=== PATIENT | female | born 1930 | race Caucasian/White ===

== ENCOUNTER 2017-08-15 09:28 | Emergency (ER) | payer MEDICARE, OTHER ==
[2017-08-15 09:50] LABS: BILIRUBIN,URINE NEGATIVE (NEG); CLARITY,URINE CLEAR; COLOR,URINE YELLOW; GLUCOSE,URINE NEGATIVE (NEG); NITRITE,URINE POSITIVE (NEG); PH,URINE 6.5; PROTEIN,URINE NEGATIVE (NEG-TRACE); UROBILINOGEN,URINE 0.2 mg/dL (0.2 mg/dL)
[2017-08-15 09:58] LABS: BACTERIA,URINE MANY /HPF (0-FEW); RBC,URINE OCC /HPF (0-2)
[2017-08-15 09:59] LABS: SQUAMOUS EPITHELIAL CELL,UR OCC /LPF
[2017-08-15 10:09] LABS: BASO % 0 % (0-3); EOS % 0 % (0-3); HEMATOCRIT 35.8 % (36.0-47.0); HEMOGLOBIN 11.6 g/dL (12.0-15.5); LYMPH # 0.8 x10^3/uL (1.0-4.8); LYMPH % 6 % (24-48); MEAN CORPUSCULAR HEMOGLOBIN 27 pg (25-35); MEAN CORPUSCULAR HGB CONC 32 g/dL (31-37); MEAN CORPUSCULAR VOLUME 85 fL (79-100); MONO # 0.9 x10^3/uL (0.0-1.1); MONO % 7 % (0-9); NEUT # 11.7 x10^3uL (1.8-7.7); NEUT % 87 % (31-73); PLATELET COUNT 202 x10^3/uL (140-400); RED BLOOD COUNT 4.24 x10^6/uL (3.50-5.40); RED CELL DISTRIBUTION WIDTH 16.7 % (11.5-14.5); WHITE BLOOD COUNT 13.4 x10^3/uL (4.0-11.0)
[2017-08-15 10:11] LABS: ADD MAN DIFF? YES
[2017-08-15 10:17] LABS: ANION GAP 5 (6-14); BLOOD UREA NITROGEN 23 mg/dL (7-20); BUN/CREATININE RATIO 26 (6-20); CALCIUM 8.8 mg/dL (8.5-10.1); CARBON DIOXIDE 31 mmol/L (21-32); CHLORIDE 106 mmol/L (98-107); CREATININE 0.9 mg/dL (0.6-1.0); GFR 59.2; GLUCOSE 98 mg/dL (70-99); POTASSIUM 4.2 mmol/L (3.5-5.1); SODIUM 142 mmol/L (136-145)
[2017-08-15 10:23] LABS: ALBUMIN 2.8 g/dL (3.4-5.0); ALK PHOS 87 U/L (46-116); ALT (SGPT) 16 U/L (14-59); AST (SGOT) 18 U/L (15-37); TOTAL BILIRUBIN 0.4 mg/dL (0.2-1.0); TOTAL PROTEIN 5.7 g/dL (6.4-8.2)
[2017-08-15 10:54] LABS: % BANDS 5 % (0-9); % LYMPHS 8 % (24-48); % MONOS 4 % (0-10); % SEGS 83 % (35-66); PLT ESTIMATE ADEQUATE (ADEQUATE)
== END 2017-08-15 10:58 | disposition home or self-care (01) ==
LOC: ER 09:28
DX: N39.0 Urinary tract infection, site not specified (principal); R41.82 Altered mental status, unspecified; G89.29 Other chronic pain; I10 Essential (primary) hypertension; M06.9 Rheumatoid arthritis, unspecified; M81.0 Age-related osteoporosis without current pathological fracture; Z95.0 Presence of cardiac pacemaker; Z98.890 Other specified postprocedural states; Z91.041 Radiographic dye allergy status
CPT/HCPCS: 36415; 51701; 80053; 81001; 85007; 85025; 87086; 87186; 93005; 99285-25; P9612

== ENCOUNTER 2017-11-21 15:39 | Inpatient (IN) | payer MEDICARE, OTHER ==
[~2017-11-21] VITALS: Ht 152.4 cm; Wt 48.6 kg
[~2017-11-21 15:39] MED LIST: ACET325T46 PO; ALEN70TA5 PO; AMLO5TAB7 PO; ASPI-482 PO; CALC500T30 PO; CELE100C PO; CELE200C PO; CHOL100014 PO; CLON0.1T PO; DEXT237L PO; DICL100G18 TP; DOCU-109 PO; FENT1PAT15 TD; GUAI-108 PO; HYDR-2766 PO; HYDR-971 PO; HYDR200T5 PO; IRBE300T3 PO; LOSA100T7 PO; MECL25TA PO; MULT-245 PO; NITR100C62 PO; ONDA4TAB12 PO; POLY17PO3 PO; POLY2500 PO; SULF-16 PO; [UNRECOGNIZED DRUG - CODE] IV
--- NOTE | 2017-11-21 16:38 | RAD ---
Exam: AP portable chest History: Cough. Hypertension. Comparison: January 06, 2015. Findings: The heart and mediastinal structures are within normal limits for size. Lungs are without infiltrate. No pleural effusion or pneumothorax is identified. No overt failure is identified. Mild accentuation of interstitial markings is favored to be from fibrotic change. Aortic atherosclerosis is seen. Dual-lead pacemaker by left subclavian approach is seen. Aortic atherosclerosis is noted. Several vertebral bodies near the thoracal lumbar junction demonstrate cement. Impression: 1. No acute cardiopulmonary process. Electronically signed by: Phillip Asher MD (11/21/2017 4:35 PM) [place] [id number]
--- NOTE | 2017-11-21 16:47 | PHYS DOC ---
Past Medical History Past Medical History: Anxiety, Arthritis, Arrhythmia, Hypertension, Other Additional Past Medical Histor: CHRONIC PAIN, RHEUMATOID ARTHRITIS, Osteoporosis Past Surgical History: Pacemaker, Other Additional Past Surgical Histo: NECK, BACK SURGERY, EYE SURGERY Alcohol Use: None Drug Use: None Adult General Chief Complaint Chief Complaint: SHORTNESS OF BREATH HPI HPI 87-year-old female presents with a several day history of cough. She states that she feels a little short of breath with it. She denies any chest pain. She is denies hemoptysis. She states that it's just clear sputum there is no color to it. She denies any fever chills or sweats. She's had no associated nausea or vomiting no lower extremity swelling. She does not think anyone else around her is been sick. She does admit to being very anxious with this cough.[] Review of Systems Review of Systems Constitutional: Denies fever or chills [] Eyes: Denies change in visual acuity, redness, or eye pain [] HENT: Reports nasal congestion[] Respiratory: Per history of present illness[] Cardiovascular: No additional information not addressed in HPI [] GI: Denies abdominal pain, nausea, vomiting, bloody stools or diarrhea [] : Denies dysuria or hematuria [] Musculoskeletal: Denies back pain or joint pain [] Integument: Denies rash or skin lesions [] Neurologic: Denies headache, focal weakness or sensory changes [] Endocrine: Denies polyuria or polydipsia [] All other systems were reviewed and found to be within normal limits, except as documented in this note. Current Medications Current Medications Current Medications Medications (Trade) Dose Ordered Sig/Parker Start Time Stop Time Status Last Admin Dose Admin Acetaminophen (Tylenol) 650 mg PRN Q4HRS PRN 11/21/17 17:45 11/22/17 17:44 Albuterol/ Ipratropium (Duoneb) 3 ml RTQID 11/21/17 20:00 11/22/17 19:59 Furosemide (Lasix) 20 mg 1X ONCE 11/21/17 17:45 11/21/17 17:46 DC Ondansetron HCl (Zofran) 4 mg PRN Q8HRS PRN 11/21/17 17:45 11/22/17 17:44 Allergies Allergies Allergies Coded Allergies Type Severity Reaction Last Updated Verified I S O L A T I O N *CONTACT* Allergy Unknown 07/12/15 Yes No Known Medication Allergies Allergy Unknown 07/12/15 Yes Physical Exam Physical Exam Constitutional: Frail elderly female in no distress, no acute distress, non- toxic appearance. [] HENT: Normocephalic, atraumatic, bilateral external ears normal, oropharynx moist, no oral exudates, nose normal. [] Eyes: PERRLA, EOMI, conjunctiva normal, no discharge. [] Neck: Normal range of motion, no tenderness, supple, no stridor. [] Cardiovascular:Heart rate regular rhythm, no murmur [] Lungs & Thorax: Scattered rhonchi throughout both lungs no rales no wheezing[] Abdomen: Bowel sounds normal, soft, no tenderness, no masses, no pulsatile masses. [] Skin: Warm, dry, no erythema, no rash. [] Back: Kyphotic spine. [] Extremities: No tenderness, no cyanosis, no clubbing, ROM intact, no edema. [] Neurologic: Alert and oriented X 3, normal motor function, normal sensory function, no focal deficits noted. [] Psychologic: Anxious. [] Current Patient Data Vital Signs Vital Signs Date Time Temp Pulse Resp B/P (MAP) Pulse Ox O2 Delivery O2 Flow Rate FiO2 11/21/17 15:42 98.0 67 20 165/69 (101) 98 Room Air 98.0 Lab Values Laboratory Tests Test 11/21/17 16:57 White Blood Count 6.7 x10^3/uL (4.0-11.0) Red Blood Count 4.48 x10^6/uL (3.50-5.40) Hemoglobin 12.7 g/dL (12.0-15.5) Hematocrit 37.4 % (36.0-47.0) Mean Corpuscular Volume 84 fL (79-100) Mean Corpuscular Hemoglobin 28 pg (25-35) Mean Corpuscular Hemoglobin Concent 34 g/dL (31-37) Red Cell Distribution Width 17.7 % (11.5-14.5) H Platelet Count 201 x10^3/uL (140-400) Neutrophils (%) (Auto) 74 % (31-73) H Lymphocytes (%) (Auto) 13 % (24-48) L Monocytes (%) (Auto) 11 % (0-9) H Eosinophils (%) (Auto) 1 % (0-3) Basophils (%) (Auto) 0 % (0-3) Neutrophils # (Auto) 5.0 x10^3uL (1.8-7.7) Lymphocytes # (Auto) 0.9 x10^3/uL (1.0-4.8) L Monocytes # (Auto) 0.8 x10^3/uL (0.0-1.1) Eosinophils # (Auto) 0.1 x10^3/uL (0.0-0.7) Basophils # (Auto) 0.0 x10^3/uL (0.0-0.2) Sodium Level 140 mmol/L (136-145) Potassium Level 3.9 mmol/L (3.5-5.1) Chloride Level 105 mmol/L (98-107) Carbon Dioxide Level 30 mmol/L (21-32) Anion Gap 5 (6-14) L Blood Urea Nitrogen 27 mg/dL (7-20) H Creatinine 1.2 mg/dL (0.6-1.0) H Estimated GFR (Cockcroft-Gault) 42.5 BUN/Creatinine Ratio 23 (6-20) H Glucose Level 99 mg/dL (70-99) Lactic Acid Level 1.0 mmol/L (0.4-2.0) Calcium Level 8.9 mg/dL (8.5-10.1) Total Bilirubin 0.2 mg/dL (0.2-1.0) Aspartate Amino Transferase (AST) 23 U/L (15-37) Alanine Aminotransferase (ALT) 22 U/L (14-59) Alkaline Phosphatase 111 U/L (46-116) Troponin I Quantitative 0.054 ng/mL (0.000-0.055) LM-Jbk-S-Type Natriuretic Peptide 1490 pg/mL (0-449) H Total Protein 6.2 g/dL (6.4-8.2) L Albumin 3.2 g/dL (3.4-5.0) L Albumin/Globulin Ratio 1.1 (1.0-1.7) Laboratory Tests 11/21/17 16:57 Laboratory Tests 11/21/17 16:57 EKG EKG [] Interpretation Time: Atrial pacing rate of 70 no change from previous Radiology/Procedures Radiology/Procedures [] Impressions: PROCEDURE: CHEST AP ONLY Exam: AP portable chest History: Cough. Hypertension. Comparison: January 06, 2015. Findings: The heart and mediastinal structures are within normal limits for size. Lungs are without infiltrate. No pleural effusion or pneumothorax is identified. No overt failure is identified. Mild accentuation of interstitial markings is favored to be from fibrotic change. Aortic atherosclerosis is seen. Dual-lead pacemaker by left subclavian approach is seen. Aortic atherosclerosis is noted. Several vertebral bodies near the thoracal lumbar junction demonstrate cement. Impression: 1. No acute cardiopulmonary process. Course & Med Decision Making Course & Med Decision Making Pertinent Labs and Imaging studies reviewed. (See chart for details) [ED course: Evaluation reveals a frail 87-year-old female who is in mild respiratory distress secondary to cough and clear sputum production. After reviewing her workup it appears to me that her chest x-ray shows some volume overload and she has a slightly elevated BNP. I did give her some Lasix to begin diuresis in the department. Her oxygen saturation remains in the mid 90s on room air. I believe she'll do best being admitted to the hospital for further evaluation and tuneup. I spoke with Dr. Bazan who agrees with this plan.] Dragon Disclaimer Dragon Disclaimer This electronic medical record was generated, in whole or in part, using a voice recognition dictation system. Departure Departure Impression: Primary Impression: Shortness of breath Disposition: ADMITTED INPATIENT Admitting Physician: Erma Bazan Condition: GUARDED Referrals: CANDIS QUIJANO MD (PCP) ASIF GERMAN DO Nov 21, 2017 16:47
--- NOTE | 2017-11-21 16:49 | EKG ---
[facility] [address] [place] [address] Test Date: 2017-11-21 Test Time: 16:44:48 Pat Name: JESSEE LASSITER Department: Room: Gender: F [employer]: : 1930 Requested By: ASIF GERMAN Order Number: [id number] Reading MD: Nemesio Weber MD Measurements Intervals [place] Rate: 69 P: -4 TN: 178 QRS: -62 QRSD: 188 T: 93 QT: 466 QTc: 501 Interpretive Statements SR V-PACED Electronically Signed On 11-22-2017 13:51:15 CDT by Nemesio Weber MD
[2017-11-21 17:10] LABS: BASO % 0 % (0-3); EOS # 0.1 x10^3/uL (0.0-0.7); EOS % 1 % (0-3); HEMATOCRIT 37.4 % (36.0-47.0); HEMOGLOBIN 12.7 g/dL (12.0-15.5); LYMPH # 0.9 x10^3/uL (1.0-4.8); LYMPH % 13 % (24-48); MEAN CORPUSCULAR HEMOGLOBIN 28 pg (25-35); MEAN CORPUSCULAR HGB CONC 34 g/dL (31-37); MEAN CORPUSCULAR VOLUME 84 fL (79-100); MONO # 0.8 x10^3/uL (0.0-1.1); MONO % 11 % (0-9); NEUT % 74 % (31-73); PLATELET COUNT 201 x10^3/uL (140-400); RED BLOOD COUNT 4.48 x10^6/uL (3.50-5.40); RED CELL DISTRIBUTION WIDTH 17.7 % (11.5-14.5); WHITE BLOOD COUNT 6.7 x10^3/uL (4.0-11.0)
[2017-11-21 17:23] LABS: CALCIUM 8.9 mg/dL (8.5-10.1); CREATININE 1.2 mg/dL (0.6-1.0); GFR 42.5; POTASSIUM 3.9 mmol/L (3.5-5.1)
[2017-11-21 17:29] LABS: ALBUMIN 3.2 g/dL (3.4-5.0); ALBUMIN/GLOBULIN RATIO 1.1 (1.0-1.7); TOTAL BILIRUBIN 0.2 mg/dL (0.2-1.0); TOTAL PROTEIN 6.2 g/dL (6.4-8.2)
[2017-11-21] MEDS ORDERED: FUROSEMIDE 20 MG/2 ML VIAL. IVP ONE (17:45)
[2017-11-21] MEDS: ACETAMINOPHEN 325 MG TABLET. PO PRN (19:36)
[2017-11-21] MEDS: IPRATRPIUM/ALBUTEROL 0.5/2.5MG 3 ML NEBU. NEB SCH (20:00)
--- NOTE | 2017-11-21 22:54 | HP ---
ADMIT DATE: 11/21/2017 CHIEF COMPLAINT: Shortness of breath. HISTORY OF PRESENT ILLNESS: The patient is a pleasant, very frail 87-year-old female, who presented with shortness of breath and cough. While in the ER, we did some imaging including a chest x-ray, which is showing vascular congestion by my eye. Also, clinically, she seems to be aspirating. When I saw her, she seems to be choking and not able to swallow her food very well. I suspect she may have a combination of aspiration pneumonia and heart failure. We are going to admit the patient and consult Pulmonary and Cardiology. PAST MEDICAL HISTORY: Arthritis, anxiety, arrhythmias, hypertension, chronic pain, RA, osteoporosis, neck surgery, back surgery, eye surgery. ALLERGIES: None. FAMILY HISTORY: Hypertension. SOCIAL HISTORY: She does not drink, smoke or take drugs. MEDICATIONS: Reviewed, please refer to the MRAD. REVIEW OF SYSTEMS: REVIEW OF SYSTEMS: GENERAL: No history of weight change, weakness or fevers. SKIN: No bruising, hair changes or rashes. EYES: No blurred, double or loss of vision. NOSE AND THROAT: No history of nosebleeds, hoarseness or sore throat. HEART: No history of palpitations, chest pain or shortness of breath on exertion. LUNGS: She complains of shortness of breath and coughing with her food. GASTROINTESTINAL: Denies changes in appetite, nausea, vomiting, diarrhea or constipation. GENITOURINARY: No history of frequency, urgency, hesitancy or nocturia. NEUROLOGIC: Denies history of numbness, tingling, tremor or weakness. PSYCHIATRIC: No history of panic, anxiety or depression. ENDOCRINE: No history of heat or cold intolerance, polyuria or polydipsia. EXTREMITIES: Denies muscle weakness, joint pain, pain on walking or stiffness. PHYSICAL EXAMINATION: VITAL SIGNS: Temperature 98, pulse 80, respirations 18, blood pressure 147/65. GENERAL: She is alert, cooperative, very weak. Her daughters were present, they are good support for her. HEART: Distant S1, S2. LUNGS: Coarse. ABDOMEN: Soft. EXTREMITIES: No edema. SKIN: No rashes. ENDOCRINE: No thyromegaly. LYMPHATICS: No cervical nodes. HEMATOPOIETIC: No bruising. LABORATORY DATA: Hematology is normal. Electrolytes normal other than a BUN of 27. BNP 1490. Chest x-ray by my eye shows some vascular congestion. ASSESSMENT AND PLAN: Probable heart failure and probable aspiration pneumonia. The patient is being admitted. We will consult Pulmonary and Cardiology. TIFFANIE Whitehead. PT, OT. I asked the nurse to thicken her clear liquids for now, and we will consult speech therapy. Full code, p.r.n. Zofran, p.r.n. Tylenol, serial enzymes, cardiac monitoring. Blood culture, lactic acid level. PROGNOSIS: Guarded. GINGER SALAZAR DO DR: LISETH/antolin JOB#: [id number] / [id number]
[2017-11-21 23:03] VITALS: BP 123/50
[2017-11-22] MEDS ORDERED: SIMETHICONE 80 MG TAB.CHEW PO PRN ×2 (00:45→14:15)
[2017-11-22] MEDS ORDERED: ACETAMINOPHEN 325 MG TABLET. PO PRN (00:45)
[2017-11-22] MEDS ORDERED: DOCUSATE SODIUM 100 MG CAPSULE. PO PRN (00:45)
[2017-11-22] MEDS ORDERED: fentaNYL 25MCG/HR PATCH 1 PATCH PATCH.TD72 TD SCH (00:45)
[2017-11-22] MEDS ORDERED: DICLOFENAC SODIUM 1% TOPICAL GEL 100GM TUBE. TP PRN ×2 (00:45→14:00)
[2017-11-22] MEDS ORDERED: guaiFENesin DM 200MG/20MG 10 ML SYRUP PO PRN ×2 (00:45→14:30)
[2017-11-22] MEDS ORDERED: SENNOSIDES 8.6 MG TABLET PO PRN ×2 (00:45→14:30)
[2017-11-22] MEDS ORDERED: HYDROcodone/APAP 10/325 1 TAB TABLET PO PRN ×2 (00:45→14:30)
[2017-11-22] MEDS ORDERED: SENN1TAB29 PO (01:55)
[2017-11-22] MEDS ORDERED: ALEN70TA3 PO (01:55)
[2017-11-22] MEDS ORDERED: POLY17PO29 PO (01:55)
[2017-11-22] MEDS ORDERED: CALC600T4 PO (01:55)
[2017-11-22] MEDS ORDERED: DICL100G18 TP ×2 (01:55→13:00)
[2017-11-22] MEDS ORDERED: GABA-585 PO (01:55)
[2017-11-22] MEDS ORDERED: FENT1PAT90 TP (01:55)
[2017-11-22] MEDS ORDERED: ASPI-630 PO (01:55)
[2017-11-22] MEDS ORDERED: GUAI600T47 PO (01:55)
[2017-11-22] MEDS ORDERED: FERR325T14 PO (01:55)
[2017-11-22] MEDS ORDERED: TRAZ-85 PO (01:55)
[2017-11-22] MEDS ORDERED: GUAI237L83 PO (01:55)
[2017-11-22] MEDS ORDERED: FURO-69 PO ×2 (01:55)
[2017-11-22] MEDS ORDERED: SIME40DR40 PO ×2 (01:55)
[2017-11-22] MEDS ORDERED: SALI10002 MM (01:55)
[2017-11-22] MEDS ORDERED: CETI10TA16 PO (01:55)
[2017-11-22] MEDS ORDERED: TROL35.4 TP (01:55)
[2017-11-22] MEDS ORDERED: SULF1TAB23 PO ×2 (01:55→13:00)
[2017-11-22] MEDS ORDERED: ONDA4TAB7 PO (01:55)
[2017-11-22] MEDS ORDERED: ACET500T68 PO (01:55)
[2017-11-22] MEDS ORDERED: CRAN500C6 PO (01:55)
[2017-11-22] MEDS ORDERED: OMEP20TA63 PO (01:55)
[2017-11-22] MEDS ORDERED: HYDR-2766 PO (01:55)
[2017-11-22] MEDS ORDERED: XOPENEX0.63 MG/3 NEB (01:55)
[2017-11-22] MEDS ORDERED: HYDR200T71 PO (01:55)
[2017-11-22] MEDS ORDERED: SERT50TA PO (01:55)
[2017-11-22] MEDS ORDERED: AMLO10TA4 PO (01:55)
[2017-11-22] MEDS ORDERED: MULT1TAB52 PO (01:55)
[2017-11-22] MEDS ORDERED: CELE100C PO (01:55)
[2017-11-22] MEDS ORDERED: LOSA100T7 PO (01:55)
[2017-11-22 03:04] VITALS: BP 126/64
[2017-11-22 07:00] VITALS: BP 89/71
[2017-11-22] MEDS: IPRATRPIUM/ALBUTEROL 0.5/2.5MG 3 ML NEBU. NEB SCH ×3 (08:00→15:19)
[2017-11-22] MEDS ORDERED: FERROUS SULFATE 325 MG TABLET. PO SCH (08:00)
[2017-11-22] MEDS ORDERED: ASPIRIN ENTERIC COATED 81 MG TABLET.DR. PO SCH (08:00)
[2017-11-22] MEDS: ACETAMINOPHEN 325 MG TABLET. PO PRN (08:46)
[2017-11-22] MEDS ORDERED: SMZ/TMP 800/160MG TABLET. PO SCH (09:00)
[2017-11-22] MEDS ORDERED: SERTRALINE 50 MG TABLET. PO SCH (09:00)
[2017-11-22] MEDS ORDERED: amLODIPine BESYLATE 10 MG TABLET PO SCH (09:00)
[2017-11-22] MEDS ORDERED: POLYETHYLENE GLYCOL 3350 17 GM PACKET. PO SCH (09:00)
[2017-11-22] MEDS ORDERED: HYDROXYCHLOROQUINE 200 MG TABLET PO SCH (09:00)
[2017-11-22] MEDS ORDERED: CALCIUM CARBONATE 500 MG TABLET PO SCH (09:00)
[2017-11-22] MEDS ORDERED: LACTOBACILLUS RHAMNOSUS GG 1 CAPSULE. PO SCH (09:00)
[2017-11-22] MEDS ORDERED: LOSARTAN POTASSIUM 50 MG TABLET. PO SCH (09:00)
[2017-11-22] MEDS ORDERED: CETIRIZINE HCL 10 MG TABLET. PO SCH (09:00)
[2017-11-22] MEDS ORDERED: CELECOXIB 100 MG CAPSULE. PO SCH (09:00)
--- NOTE | 2017-11-22 09:49 | PDOC2 ---
CARDIAC CONSULT DATE OF CONSULT Date of Consult DATE: 11/22/17 TIME: 09:30 REASON FOR CONSULT Reason for Consult: Dyspnea REFERRING PHYSICIAN Referring Physician: Americo SOURCE Source: Chart review, Patient HISTORY OF PRESENT ILLNESS HISTORY OF PRESENT ILLNESS This is an 87 yo female admitted for complains of SOA. Presently she is pleasantly confused. Unknown what her baseline is like but she resides at [facility] living [place]. Currently she is not in any distress with no O2. No SOA or CP but does complain of occipital HUANG. She appears to have nasal congestion. She could not tell me why she is in the hospital and thinks that she is still in the [facility] home. Per chart review, she has been having coughing spells with no associated n/v. She does have a pacemaker and she has not followed up in our office for a while. No noted recent falls or syncope and unclear when her last interrogation was. PAST MEDICAL HISTORY Cardiovascular: CHF (diastolic), HTN, Other (SSS) Musculoskeletal: Osteoarthritis, Other (chronic gayle; vertebral compression fracture with kyphoplasty; left greater trochanter fracture) Rheumatologic: Rheumatoid arthritis Renal/: UTI Endocrine: Osteoporosis PAST SURGICAL HISTORY Past Surgical History: Pacemaker (medtronic), Other (cervical fusion) FAMILY HISTORY Family History noncontributory to age SOCIAL HISTORY Smoke: No ALCOHOL: none Lives: Long Term CURRENT MEDICATIONS CURRENT MEDICATIONS Current Medications Medications (Trade) Dose Ordered Sig/Parker Route PRN Reason Start Time Stop Time Status Last Admin Dose Admin Furosemide (Lasix) 20 mg 1X ONCE IVP 11/21/17 17:45 11/21/17 17:46 DC 11/21/17 18:03 Acetaminophen (Tylenol) 650 mg PRN Q4HRS PRN PO FEVER 11/21/17 17:45 11/22/17 17:44 11/22/17 08:46 Albuterol/ Ipratropium (Duoneb) 3 ml RTQID NEB 11/21/17 20:00 11/22/17 19:59 11/22/17 08:00 ALLERGIES ALLERGIES: Coded Allergies: I S O L A T I O N *CONTACT* (Verified Allergy, Unknown, 07/12/15) mrsa + No Known Medication Allergies (Verified Allergy, Unknown, 07/12/15) ROS Review of System unreliable, confuse PHYSICAL EXAM General: Alert, Cooperative, No acute distress HEENT: Atraumatic, Mucous membr. moist/pink Lungs: Other (fiant crackles bases) Heart: Regular rate (Paced), Other (3/6 systolic murmur to apex) Abdomen: Soft, No tenderness Extremities: No cyanosis, No edema Skin: No breakdown, No significant lesion Neuro: Normal speech, Sensation intact Psych/Mental Status: Mood NL, Other (confuse) MUSCULOSKELETAL: Osteoarthritic changes both hands, Other (cahectic) VITALS VITALS Vital Signs Date Time Temp Pulse Resp B/P (MAP) Pulse Ox O2 Delivery O2 Flow Rate FiO2 11/22/17 08:01 97 Room Air 11/22/17 07:00 98.6 73 18 89/71 (77) 98.6 LABS Lab: Laboratory Tests Test 11/21/17 16:57 11/21/17 20:35 11/21/17 23:30 White Blood Count 6.7 x10^3/uL (4.0-11.0) Red Blood Count 4.48 x10^6/uL (3.50-5.40) Hemoglobin 12.7 g/dL (12.0-15.5) Hematocrit 37.4 % (36.0-47.0) Mean Corpuscular Volume 84 fL (79-100) Mean Corpuscular Hemoglobin 28 pg (25-35) Mean Corpuscular Hemoglobin Concent 34 g/dL (31-37) Red Cell Distribution Width 17.7 % (11.5-14.5) Platelet Count 201 x10^3/uL (140-400) Neutrophils (%) (Auto) 74 % (31-73) Lymphocytes (%) (Auto) 13 % (24-48) Monocytes (%) (Auto) 11 % (0-9) Eosinophils (%) (Auto) 1 % (0-3) Basophils (%) (Auto) 0 % (0-3) Neutrophils # (Auto) 5.0 x10^3uL (1.8-7.7) Lymphocytes # (Auto) 0.9 x10^3/uL (1.0-4.8) Monocytes # (Auto) 0.8 x10^3/uL (0.0-1.1) Eosinophils # (Auto) 0.1 x10^3/uL (0.0-0.7) Basophils # (Auto) 0.0 x10^3/uL (0.0-0.2) Sodium Level 140 mmol/L (136-145) Potassium Level 3.9 mmol/L (3.5-5.1) Chloride Level 105 mmol/L (98-107) Carbon Dioxide Level 30 mmol/L (21-32) Anion Gap 5 (6-14) Blood Urea Nitrogen 27 mg/dL (7-20) Creatinine 1.2 mg/dL (0.6-1.0) Estimated GFR (Cockcroft-Gault) 42.5 BUN/Creatinine Ratio 23 (6-20) Glucose Level 99 mg/dL (70-99) Lactic Acid Level 1.0 mmol/L (0.4-2.0) Calcium Level 8.9 mg/dL (8.5-10.1) Total Bilirubin 0.2 mg/dL (0.2-1.0) Aspartate Amino Transf (AST/SGOT) 23 U/L (15-37) Alanine Aminotransferase (ALT/SGPT) 22 U/L (14-59) Alkaline Phosphatase 111 U/L (46-116) Troponin I Quantitative 0.054 ng/mL (0.000-0.055) 0.045 ng/mL (0.000-0.055) 0.048 ng/mL (0.000-0.055) IY-Cyu-J-Type Natriuretic Peptide 1490 pg/mL (0-449) Total Protein 6.2 g/dL (6.4-8.2) Albumin 3.2 g/dL (3.4-5.0) Albumin/Globulin Ratio 1.1 (1.0-1.7) ECHOCARDIOGRAM ECHOCARDIOGRAM <Conclusion> Normal LV systolic function. EF 60% Normal wall motion. Mild to moderate Aortic insufficiency, otherwise no evidence of significant valvular dysfunction. DATE: 01/07/15 1334 ASSESSMENT/PLAN ASSESSMENT/PLAN 1. Dyspnea/nasal congestion: possible aspiration. Troponin series nml, EKG paced with no acute changes. 2. PPM in situ with past SSS: medtronic. 3. HTN: controlled 4. Dementia 5. Likely FTT with deconditioning and chronic pain: has fentanyl patch 6. Chronic diastolic CHF: compensated. suspect poor PO hydration 7. Polypharmacy Recommendations 1. Speech eval. 2. Will interrogate device. TTE. May hold BP meds per BP trend. 3. Consider palliative consult for future goals of care. 4. UA, TSH, BMP DIXON TAI FIELD SPECIALIST Nov 22, 2017 09:49
[2017-11-22 11:00] VITALS: BP 139/48
--- NOTE | 2017-11-22 11:32 | PDOC ---
PROGRESS NOTES History of Present Illness History of Present Illness ASSESSMENT ASSESSMENT/PLAN 1. Dyspnea/ congestion: possible aspiration. DAughter thinks she is aspirating 2. PPM / SSS: 3. HTN: c 4. Dementia 5. chronic pain: 6. Chronic diastolic CHF: compensated. plan 1. Speech eval. POSS aspiration 2. interrogate PPM / TTE. 3. palliative consult 4. pulm consult 5. cardiology consult. Vitals Vitals Vital Signs Date Time Temp Pulse Resp B/P (MAP) Pulse Ox O2 Delivery O2 Flow Rate FiO2 11/22/17 11:00 97.7 80 18 139/48 (78) 92 Room Air 97.7 Physical Exam General: Alert, Oriented X3, Cooperative, No acute distress Heart: Regular rate (Paced), Normal S1, Other (3/6 systolic murmur to apex) Lungs: Crackles Abdomen: Soft, No tenderness Extremities: No clubbing, No cyanosis, No edema Skin: No breakdown, No significant lesion Labs LABS Laboratory Tests Test 11/21/17 16:57 11/21/17 20:35 11/21/17 23:30 White Blood Count 6.7 x10^3/uL (4.0-11.0) Red Blood Count 4.48 x10^6/uL (3.50-5.40) Hemoglobin 12.7 g/dL (12.0-15.5) Hematocrit 37.4 % (36.0-47.0) Mean Corpuscular Volume 84 fL (79-100) Mean Corpuscular Hemoglobin 28 pg (25-35) Mean Corpuscular Hemoglobin Concent 34 g/dL (31-37) Red Cell Distribution Width 17.7 % (11.5-14.5) Platelet Count 201 x10^3/uL (140-400) Neutrophils (%) (Auto) 74 % (31-73) Lymphocytes (%) (Auto) 13 % (24-48) Monocytes (%) (Auto) 11 % (0-9) Eosinophils (%) (Auto) 1 % (0-3) Basophils (%) (Auto) 0 % (0-3) Neutrophils # (Auto) 5.0 x10^3uL (1.8-7.7) Lymphocytes # (Auto) 0.9 x10^3/uL (1.0-4.8) Monocytes # (Auto) 0.8 x10^3/uL (0.0-1.1) Eosinophils # (Auto) 0.1 x10^3/uL (0.0-0.7) Basophils # (Auto) 0.0 x10^3/uL (0.0-0.2) Sodium Level 140 mmol/L (136-145) Potassium Level 3.9 mmol/L (3.5-5.1) Chloride Level 105 mmol/L (98-107) Carbon Dioxide Level 30 mmol/L (21-32) Anion Gap 5 (6-14) Blood Urea Nitrogen 27 mg/dL (7-20) Creatinine 1.2 mg/dL (0.6-1.0) Estimated GFR (Cockcroft-Gault) 42.5 BUN/Creatinine Ratio 23 (6-20) Glucose Level 99 mg/dL (70-99) Lactic Acid Level 1.0 mmol/L (0.4-2.0) Calcium Level 8.9 mg/dL (8.5-10.1) Total Bilirubin 0.2 mg/dL (0.2-1.0) Aspartate Amino Transf (AST/SGOT) 23 U/L (15-37) Alanine Aminotransferase (ALT/SGPT) 22 U/L (14-59) Alkaline Phosphatase 111 U/L (46-116) Troponin I Quantitative 0.054 ng/mL (0.000-0.055) 0.045 ng/mL (0.000-0.055) 0.048 ng/mL (0.000-0.055) NE-Hnd-D-Type Natriuretic Peptide 1490 pg/mL (0-449) Total Protein 6.2 g/dL (6.4-8.2) Albumin 3.2 g/dL (3.4-5.0) Albumin/Globulin Ratio 1.1 (1.0-1.7) Comment Review of Relevant I have reviewed the following items hilario (where applicable) has been applied. Labs Laboratory Tests Test 11/21/17 16:57 11/21/17 20:35 11/21/17 23:30 White Blood Count 6.7 x10^3/uL (4.0-11.0) Red Blood Count 4.48 x10^6/uL (3.50-5.40) Hemoglobin 12.7 g/dL (12.0-15.5) Hematocrit 37.4 % (36.0-47.0) Mean Corpuscular Volume 84 fL (79-100) Mean Corpuscular Hemoglobin 28 pg (25-35) Mean Corpuscular Hemoglobin Concent 34 g/dL (31-37) Red Cell Distribution Width 17.7 % (11.5-14.5) Platelet Count 201 x10^3/uL (140-400) Neutrophils (%) (Auto) 74 % (31-73) Lymphocytes (%) (Auto) 13 % (24-48) Monocytes (%) (Auto) 11 % (0-9) Eosinophils (%) (Auto) 1 % (0-3) Basophils (%) (Auto) 0 % (0-3) Neutrophils # (Auto) 5.0 x10^3uL (1.8-7.7) Lymphocytes # (Auto) 0.9 x10^3/uL (1.0-4.8) Monocytes # (Auto) 0.8 x10^3/uL (0.0-1.1) Eosinophils # (Auto) 0.1 x10^3/uL (0.0-0.7) Basophils # (Auto) 0.0 x10^3/uL (0.0-0.2) Sodium Level 140 mmol/L (136-145) Potassium Level 3.9 mmol/L (3.5-5.1) Chloride Level 105 mmol/L (98-107) Carbon Dioxide Level 30 mmol/L (21-32) Anion Gap 5 (6-14) Blood Urea Nitrogen 27 mg/dL (7-20) Creatinine 1.2 mg/dL (0.6-1.0) Estimated GFR (Cockcroft-Gault) 42.5 BUN/Creatinine Ratio 23 (6-20) Glucose Level 99 mg/dL (70-99) Lactic Acid Level 1.0 mmol/L (0.4-2.0) Calcium Level 8.9 mg/dL (8.5-10.1) Total Bilirubin 0.2 mg/dL (0.2-1.0) Aspartate Amino Transf (AST/SGOT) 23 U/L (15-37) Alanine Aminotransferase (ALT/SGPT) 22 U/L (14-59) Alkaline Phosphatase 111 U/L (46-116) Troponin I Quantitative 0.054 ng/mL (0.000-0.055) 0.045 ng/mL (0.000-0.055) 0.048 ng/mL (0.000-0.055) XN-Pgh-O-Type Natriuretic Peptide 1490 pg/mL (0-449) Total Protein 6.2 g/dL (6.4-8.2) Albumin 3.2 g/dL (3.4-5.0) Albumin/Globulin Ratio 1.1 (1.0-1.7) Laboratory Tests Test 11/21/17 16:57 11/21/17 20:35 11/21/17 23:30 White Blood Count 6.7 x10^3/uL (4.0-11.0) Red Blood Count 4.48 x10^6/uL (3.50-5.40) Hemoglobin 12.7 g/dL (12.0-15.5) Hematocrit 37.4 % (36.0-47.0) Mean Corpuscular Volume 84 fL (79-100) Mean Corpuscular Hemoglobin 28 pg (25-35) Mean Corpuscular Hemoglobin Concent 34 g/dL (31-37) Red Cell Distribution Width 17.7 % (11.5-14.5) Platelet Count 201 x10^3/uL (140-400) Neutrophils (%) (Auto) 74 % (31-73) Lymphocytes (%) (Auto) 13 % (24-48) Monocytes (%) (Auto) 11 % (0-9) Eosinophils (%) (Auto) 1 % (0-3) Basophils (%) (Auto) 0 % (0-3) Neutrophils # (Auto) 5.0 x10^3uL (1.8-7.7) Lymphocytes # (Auto) 0.9 x10^3/uL (1.0-4.8) Monocytes # (Auto) 0.8 x10^3/uL (0.0-1.1) Eosinophils # (Auto) 0.1 x10^3/uL (0.0-0.7) Basophils # (Auto) 0.0 x10^3/uL (0.0-0.2) Sodium Level 140 mmol/L (136-145) Potassium Level 3.9 mmol/L (3.5-5.1) Chloride Level 105 mmol/L (98-107) Carbon Dioxide Level 30 mmol/L (21-32) Anion Gap 5 (6-14) Blood Urea Nitrogen 27 mg/dL (7-20) Creatinine 1.2 mg/dL (0.6-1.0) Estimated GFR (Cockcroft-Gault) 42.5 BUN/Creatinine Ratio 23 (6-20) Glucose Level 99 mg/dL (70-99) Lactic Acid Level 1.0 mmol/L (0.4-2.0) Calcium Level 8.9 mg/dL (8.5-10.1) Total Bilirubin 0.2 mg/dL (0.2-1.0) Aspartate Amino Transf (AST/SGOT) 23 U/L (15-37) Alanine Aminotransferase (ALT/SGPT) 22 U/L (14-59) Alkaline Phosphatase 111 U/L (46-116) Troponin I Quantitative 0.054 ng/mL (0.000-0.055) 0.045 ng/mL (0.000-0.055) 0.048 ng/mL (0.000-0.055) EN-Fob-J-Type Natriuretic Peptide 1490 pg/mL (0-449) Total Protein 6.2 g/dL (6.4-8.2) Albumin 3.2 g/dL (3.4-5.0) Albumin/Globulin Ratio 1.1 (1.0-1.7) Medications Current Medications Furosemide (Lasix) 20 mg 1X ONCE IVP Last administered on 11/21/17at 18:03; Start 11/21/17 at 17:45; Stop 11/21/17 at 17:46; Status DC Ondansetron HCl (Zofran) 4 mg PRN Q8HRS PRN IV NAUSEA/VOMITING; Start 11/21/17 at 17:45; Stop 11/22/17 at 17:44 Acetaminophen (Tylenol) 650 mg PRN Q4HRS PRN PO FEVER Last administered on 11/22at 08:46; Start 11/21/17 at 17:45; Stop 11/22/17 at 17:44 Albuterol/ Ipratropium (Duoneb) 3 ml RTQID NEB Last administered on 11/22/17at 08:00; Start 11/21/17 at 20:00; Stop 11/22/17 at 19:59 Acetaminophen (Tylenol) 650 mg PRN Q6HRS PRN PO MILD PAIN; Start 11/22/17 at 00 :45; Status Cancel Calcium Carbonate/ Glycine (Oscal) 500 mg DAILY PO ; Start 11/22/17 at 09:00; Status Cancel Celecoxib (CeleBREX) 100 mg BID PO ; Start 11/22/17 at 09:00; Status Cancel Docusate Sodium (Colace) 100 mg PRN BID PRN PO CONSTIPATION 1ST CHOICE; Start 11/22/17 at 00:45; Status Cancel Fentanyl (Duragesic 25mcg/ Hr Patch) 1 patch Q72H TD ; Start 11/22/17 at 00:45; Status UNV Aspirin (Ecotrin) 81 mg DAILYWBKFT PO ; Start 11/22/17 at 08:00; Status Cancel Trimethoprim/ Sulfamethoxazole (Bactrim Ds) 0.5 tab BID PO ; Start 11/22/17 at 09:00; Stop 11/24/17 at 08:59; Status Cancel Cetirizine HCl (ZyrTEC) 10 mg DAILY PO ; Start 11/22/17 at 09:00; Status Cancel Ferrous Sulfate (Feosol) 325 mg DAILYWBKFT PO ; Start 11/22/17 at 08:00; Status Cancel Gabapentin (Neurontin) 100 mg HS PO ; Start 11/22/17 at 21:00; Status Cancel Acetaminophen/ Hydrocodone Bitart (Lortab 10/325) 0.5 tab PRN Q4HRS PRN PO SEVERE PAIN; Start 11/22/17 at 00:45; Status Cancel Furosemide (Lasix) 10 mg QMWF PO ; Start 11/23/17 at 16:00; Status Cancel Losartan Potassium (Cozaar) 100 mg DAILY PO ; Start 11/22/17 at 09:00; Status Cancel Polyethylene Glycol (miraLAX PACKET) 17 gm BID PO ; Start 11/22/17 at 09:00; Status Cancel Amlodipine Besylate (Norvasc) 10 mg DAILY PO ; Start 11/22/17 at 09:00; Status Cancel Hydroxychloroquine Sulfate (Plaquenil) 100 mg BID PO ; Start 11/22/17 at 09:00; Status Cancel Guaifenesin (Robitussin Dm) 5 ml PRN Q4HRS PRN PO COUGH 1ST CHOICE; Start 11/22 at 00:45; Status Cancel Sennosides (Senna) 8.6 mg PRN BID PRN PO CONSTIPATION 2ND CHOICE; Start at 00:45; Status Cancel Simethicone (Gas-X) 80 mg PRN Q4HRS PRN PO INDIGESTION; Start 11/22/17 at 00:45 ; Status Cancel Trazodone HCl (Desyrel) 50 mg QHS PO ; Start 11/22/17 at 21:00; Status Cancel Diclofenac Sodium (Voltaren) 1 angel PRN Q6HRS PRN TP TOPICAL PAIN; Start at 00:45; Status Cancel Sertraline HCl (Zoloft) 50 mg DAILY PO ; Start 11/22/17 at 09:00; Status Cancel Lactobacillus Rhamnosus (Culturelle) 1 cap BID PO ; Start 11/22/17 at 09:00; Status Cancel Active Scripts Active Reported Zoloft (Sertraline Hcl) 50 Mg Tablet 1 Tab PO DAILY Zofran (Ondansetron Hcl) 4 Mg Tablet 1 Tab PO Q6HRS Hydrocodone-Apap 10-325 (Hydrocodone Bit/Acetaminophen) 1 Each Tablet 1 Tab PO PRN Q4HRS PRN Gabapentin 100 Mg Capsule 100 Mg PO QHS Fosamax (Alendronate Sodium) 70 Mg Tablet 1 Tab PO WEEKLY Ferrous Sulfate 325 Mg Tablet 1 Tab PO DAILY DURAGESIC 25mcg/hr (Fentanyl) 1 Each Patch.td72 1 Patch TP Q3DAYS Prilosec Otc (Omeprazole Magnesium) 20 Mg Tablet.dr 40 Mg PO DAILY Cranberry (Cranberry Extract) 500 Mg Capsule 15,000 Mg PO DAILY Cetirizine Hcl 10 Mg Tablet 1 Tab PO DAILY Celebrex (Celecoxib) 100 Mg Capsule 1 Cap PO BID Calcium (Calcium Carbonate) 600 Mg Tablet 600 Mg PO BID Biotene (Saliva Substitution Combo No.9) 1,000 Ml Mouthwash 1,000 Ml MM Bactrim 400-80 Mg Tablet (Sulfamethoxazole/Trimethoprim) 1 Each Tablet 1 Tab PO BID Aspirin 81 Mg Tab.chew 1 Tab PO DAILY Aspercreme 10% Cream (Trolamine Salicylate/Aloe Vera) 35.4 Gm Cream..g. 35.4 Gm TP TID Acetaminophen 500 Mg Tablet 1 Tab PO QID PRN Xopenex (Levalbuterol Hcl) 0.63 Mg/3 Ml Vial.neb 1 Vial NEB QID Voltaren (Diclofenac Sodium) 100 Gm Gel..gram. 1 Gm TP QID Trazodone Hcl 50 Mg Tablet 1 Tab PO QHS Simethicone 40 Mg/0.6 Ml Drops.susp 40 Mg PO PRN Q4HRS PRN Simethicone 40 Mg/0.6 Ml Drops.susp 40 Mg PO Q4HRS W/A Senna Laxative Tablet (Sennosides/Docusate Sodium) 1 Each Tablet 1 Each PO DAILY PRN Robitussin Cough-Chest Dm Liq (Guaifenesin/Dextromethorphan) 237 Ml Liquid 20 Ml PO PRN Q4HRS PRN Plaquenil (Hydroxychloroquine Sulfate) 200 Mg Tablet 100 Mg PO BID Norvasc (Amlodipine Besylate) 10 Mg Tablet 10 Mg PO DAILY Multivitamins (Multivitamin) 1 Each Tablet 1 Tab PO DAILY Mucinex (Guaifenesin) 600 Mg Tablet.er 1 Tab PO BID Miralax (Polyethylene Glycol 3350) 17 Gm Powd.pack 1 Packet PO BID Losartan Potassium 100 Mg Tablet 100 Mg PO DAILY Lasix (Furosemide) 20 Mg Tablet 0.5 Tab PO QWE Lasix (Furosemide) 20 Mg Tablet 0.5 Tab PO QMONFR Vitamin D3 (Cholecalciferol (Vitamin D3)) 1,000 Unit Capsule 1,000 Unit PO DAILY Calcium (Calcium Carbonate) 500 Mg Tablet 500 Mg PO DAILY Multi Vitamin Daily (Multivitamin) 1 Each Tablet 1 Each PO DAILY Celebrex (Celecoxib) 100 Mg Capsule 1 Cap PO BID Colace (Docusate Sodium) 100 Mg Capsule 1 Cap PO PRN BID PRN Alendronate Sodium 70 Mg Tablet 1 Tab PO WEEKLY FENTANYL 25mcg/hr (Fentanyl) 1 Each Patch.td72 1 Patch TD Q72H Losartan Potassium 100 Mg Tablet 100 Mg PO DAILY Athenol (Acetaminophen) 325 Mg Tablet 650 Mg PO Q6HRS PRN Vitals/I & O Vital Sign - Last 24 Hours 9/12/18 9/12/18 9/12/18 9/12/18 15:42 16:01 16:41 17:21 Temp 98.0 98.0 Pulse 67 75 72 80 Resp 20 20 20 20 B/P (MAP) 165/69 (101) 165/69 (101) 153/67 (95) 139/65 (89) Pulse Ox 98 91 92 91 O2 Delivery Room Air Room Air Room Air Room Air 11/21/17 11/21/17 11/21/17 11/21/17 18:01 19:00 20:12 21:51 Pulse 74 72 Resp 22 18 B/P (MAP) 153/69 (97) 147/65 (92) Pulse Ox 93 93 94 O2 Delivery Room Air Room Air Room Air Room Air 11/21/17 11/22/17 11/22/17 11/22/17 23:03 03:04 07:00 08:00 Temp 98.1 97.2 98.6 98.1 97.2 98.6 Pulse 68 69 73 Resp 20 20 18 B/P (MAP) 123/50 (74) 126/64 (84) 89/71 (77) Pulse Ox 94 94 93 O2 Delivery Room Air Room Air Room Air Room Air 11/22/17 11/22/17 08:01 11:00 Temp 97.7 97.7 Pulse 80 Resp 18 B/P (MAP) 139/48 (78) Pulse Ox 97 92 O2 Delivery Room Air Room Air Nutrition Consultation Dietary Evaluation: Recommendations by RD: Increase Calorie Intake, Protein supplementation Comments: ensure enlive tid pt to benefit from an appetite stimulant Expected Outcomes/Goals: to meet > 75% est nutr needs Malnutrition Findings: Body Fat Depletion (Non Severe: Mild Depletion Weight Status: Underweight RICARDO MONREAL MD Nov 22, 2017 11:32
[2017-11-22] MEDS ORDERED: ESOM40CA PO (13:00)
[2017-11-22] MEDS ORDERED: FENT1PAT13 TP (13:00)
[2017-11-22] MEDS ORDERED: SENN8.8S5 PO (13:00)
[2017-11-22] MEDS ORDERED: PIP/TAZO PER PHARMACY MC PRN (13:30)
[2017-11-22 13:59] LABS: CALCIUM 9.4 mg/dL (8.5-10.1); GFR 52.4; MAGNESIUM 2.2 mg/dL (1.8-2.4); POTASSIUM 3.8 mmol/L (3.5-5.1)
[2017-11-22] MEDS ORDERED: ACETAMINOPHEN 500 MG TABLET PO PRN (14:00)
[2017-11-22] MEDS ORDERED: ALPRAZolam 0.25 MG TABLET PO PRN (14:00)
[2017-11-22] MEDS: PIPERACILLIN/TAZOBACTAM 2.25 GM in IV NORMAL SALINE 50ML 50 ML IV SCH ×2 (14:28→17:49)
[2017-11-22] MEDS ORDERED: ALBUTEROL SULFATE 2.5 MG/3 ML NEBU. NEB PRN (14:30)
[2017-11-22] MEDS ORDERED: ONDANSETRON ODT 4 MG TAB.RAPDIS. PO PRN (14:30)
[2017-11-22 15:00] VITALS: BP 164/61
[2017-11-22] MEDS: MULTIVITAMIN with MINERAL TABLET. PO SCH (15:00)
[2017-11-22] MEDS: FERROUS SULFATE 325 MG TABLET. PO SCH (15:00)
[2017-11-22] MEDS: ONDANSETRON PF 4 MG/2 ML VIAL. IV PRN (15:05)
[2017-11-22] MEDS: fentaNYL 25MCG/HR PATCH 1 PATCH PATCH.TD72 TD SCH (15:06)
[2017-11-22] MEDS: fentaNYL 12MCG/HR PATCH 1 PATCH PATCH.TD72 TD SCH (15:07)
--- NOTE | 2017-11-22 15:07 | CARD ---
MR#: [id number] Date of Study: 11/22/2017 Ordering Physician: DIXON TAI, Referring Physician: GINGER SALAZAR Tech: Patricia Power APPROVED REPORT EXAM: Two-dimensional and M-mode echocardiogram with Doppler and color Doppler. Other Information Quality : GoodHR: 75bpm INDICATION Dyspnea 2D DIMENSIONS RVDd2.3 (2.9-3.5cm)Left Atrium(2D)3.6 (1.6-4.0cm) IVSd0.7 (0.7-1.1cm)Aortic Root(2D)2.7 (2.0-3.7cm) LVDd4.8 (3.9-5.9cm)LVOT Diameter1.9 (1.8-2.4cm) PWd0.9 (0.7-1.1cm)LVDs2.8 (2.5-4.0cm) FS (%) 42.4 %SV80.0 ml Aortic Valve AoV Peak Gordon.229.9cm/sAoV VTI52.6cm AO Peak GR.21.1mmHgLVOT Peak Gordon.110.4cm/s AO Mean GR.13mmHgAVA (VMAX)1.31cm2 AI P 1/2 [id number] Mitral Valve MV E Dnacgnaz90.2cm/sMV DECEL [id number] MV A Muyqapbe245.0cm/sE/A Ratio0.4 Tricuspid Valve TR P. Tiqdenbn880zh/sRAP CGPPVOVS6mmBp TR Peak Gr.[id number] Pulmonary Vein S1 Aenvbumc099.0cm/sD2 Fimyyhex82.6cm/s PVa [id number] LEFT VENTRICLE The left ventricle is normal size. There is normal left ventricular wall thickness. Mild to moderate left ventricular systoilic dysfunction. The Ejection Fraction is estimated at 40%. Transmitral Dopple r flow pattern is Grade I-abnormal relaxation pattern. RIGHT VENTRICLE The right ventricle is normal size. There is normal right ventricular wall thickness. The right ventr icular systolic function is normal. ATRIA The left atrium size is normal. The right atrium size is normal. The interatrial septum is intact wit h no evidence for an atrial septal defect or patent foramen ovale as noted on 2-D or Doppler imaging. AORTIC VALVE The aortic valve is calcified but opens well. Doppler and Color Flow revealed mild aortic regurgitati on. There is mild valvular aortic stenosis. MITRAL VALVE The mitral valve is calcified but opens well. Doppler and Color-flow revealed mild mitral regurgitati on. TRICUSPID VALVE The tricuspid valve is normal in structure and function. Doppler and Color Flow revealed mild tricusp id regurgitation. There is no tricuspid valve stenosis. PULMONIC VALVE The pulmonic valve is not well visualized. GREAT VESSELS The aortic root is normal in size. The IVC is normal in size and collapses >50% with inspiration. PERICARDIAL EFFUSION There is no evidence of significant pericardial effusion. Critical Notification Critical Value: No <Conclusion> Mild to moderate left ventricular systoilic dysfunction. The Ejection Fraction is estimated at 40%. Transmitral Doppler flow pattern is Grade I-abnormal relaxation pattern. There is mild valvular aortic stenosis. Mild aortic regurgitation. Mild mitral regurgitation. Mild tricuspid regurgitation. There is no evidence of significant pericardial effusion. Signed by : Juan Boo, Electronically Approved : 11/22/2017 15:06:14
[2017-11-22] MEDS: CETIRIZINE HCL 10 MG TABLET. PO SCH (16:30)
[2017-11-22] MEDS: SERTRALINE 50 MG TABLET. PO SCH (16:30)
[2017-11-22] MEDS: ASPIRIN CHEWABLE 81 MG TABLET. PO SCH (16:31)
[2017-11-22] MEDS: amLODIPine BESYLATE 10 MG TABLET PO SCH (16:31)
--- NOTE | 2017-11-22 16:42 | PDOC ---
PULMONARY PROGRESS NOTES Vitals Vital Signs Date Time Temp Pulse Resp B/P (MAP) Pulse Ox O2 Delivery O2 Flow Rate FiO2 11/22/17 16:31 83 164/61 11/22/17 16:06 96 Room Air 11/22/17 15:00 97.6 17 97.6 Lungs: Crackles Labs Laboratory Tests Test 11/21/17 16:57 11/21/17 20:35 11/21/17 23:30 11/22/17 13:30 White Blood Count 6.7 x10^3/uL (4.0-11.0) Red Blood Count 4.48 x10^6/uL (3.50-5.40) Hemoglobin 12.7 g/dL (12.0-15.5) Hematocrit 37.4 % (36.0-47.0) Mean Corpuscular Volume 84 fL (79-100) Mean Corpuscular Hemoglobin 28 pg (25-35) Mean Corpuscular Hemoglobin Concent 34 g/dL (31-37) Red Cell Distribution Width 17.7 % (11.5-14.5) Platelet Count 201 x10^3/uL (140-400) Neutrophils (%) (Auto) 74 % (31-73) Lymphocytes (%) (Auto) 13 % (24-48) Monocytes (%) (Auto) 11 % (0-9) Eosinophils (%) (Auto) 1 % (0-3) Basophils (%) (Auto) 0 % (0-3) Neutrophils # (Auto) 5.0 x10^3uL (1.8-7.7) Lymphocytes # (Auto) 0.9 x10^3/uL (1.0-4.8) Monocytes # (Auto) 0.8 x10^3/uL (0.0-1.1) Eosinophils # (Auto) 0.1 x10^3/uL (0.0-0.7) Basophils # (Auto) 0.0 x10^3/uL (0.0-0.2) Sodium Level 140 mmol/L (136-145) 141 mmol/L (136-145) Potassium Level 3.9 mmol/L (3.5-5.1) 3.8 mmol/L (3.5-5.1) Chloride Level 105 mmol/L (98-107) 103 mmol/L (98-107) Carbon Dioxide Level 30 mmol/L (21-32) 29 mmol/L (21-32) Anion Gap 5 (6-14) 9 (6-14) Blood Urea Nitrogen 27 mg/dL (7-20) 18 mg/dL (7-20) Creatinine 1.2 mg/dL (0.6-1.0) 1.0 mg/dL (0.6-1.0) Estimated GFR (Cockcroft-Gault) 42.5 52.4 BUN/Creatinine Ratio 23 (6-20) Glucose Level 99 mg/dL (70-99) 124 mg/dL (70-99) Lactic Acid Level 1.0 mmol/L (0.4-2.0) Calcium Level 8.9 mg/dL (8.5-10.1) 9.4 mg/dL (8.5-10.1) Total Bilirubin 0.2 mg/dL (0.2-1.0) Aspartate Amino Transf (AST/SGOT) 23 U/L (15-37) Alanine Aminotransferase (ALT/SGPT) 22 U/L (14-59) Alkaline Phosphatase 111 U/L (46-116) Troponin I Quantitative 0.054 ng/mL (0.000-0.055) 0.045 ng/mL (0.000-0.055) 0.048 ng/mL (0.000-0.055) VX-Hka-K-Type Natriuretic Peptide 1490 pg/mL (0-449) Total Protein 6.2 g/dL (6.4-8.2) Albumin 3.2 g/dL (3.4-5.0) Albumin/Globulin Ratio 1.1 (1.0-1.7) Magnesium Level 2.2 mg/dL (1.8-2.4) Thyroid Stimulating Hormone (TSH) 1.696 uIU/mL (0.358-3.74) Laboratory Tests Test 11/21/17 16:57 11/21/17 20:35 11/21/17 23:30 11/22/17 13:30 White Blood Count 6.7 x10^3/uL (4.0-11.0) Red Blood Count 4.48 x10^6/uL (3.50-5.40) Hemoglobin 12.7 g/dL (12.0-15.5) Hematocrit 37.4 % (36.0-47.0) Mean Corpuscular Volume 84 fL (79-100) Mean Corpuscular Hemoglobin 28 pg (25-35) Mean Corpuscular Hemoglobin Concent 34 g/dL (31-37) Red Cell Distribution Width 17.7 % (11.5-14.5) Platelet Count 201 x10^3/uL (140-400) Neutrophils (%) (Auto) 74 % (31-73) Lymphocytes (%) (Auto) 13 % (24-48) Monocytes (%) (Auto) 11 % (0-9) Eosinophils (%) (Auto) 1 % (0-3) Basophils (%) (Auto) 0 % (0-3) Neutrophils # (Auto) 5.0 x10^3uL (1.8-7.7) Lymphocytes # (Auto) 0.9 x10^3/uL (1.0-4.8) Monocytes # (Auto) 0.8 x10^3/uL (0.0-1.1) Eosinophils # (Auto) 0.1 x10^3/uL (0.0-0.7) Basophils # (Auto) 0.0 x10^3/uL (0.0-0.2) Sodium Level 140 mmol/L (136-145) 141 mmol/L (136-145) Potassium Level 3.9 mmol/L (3.5-5.1) 3.8 mmol/L (3.5-5.1) Chloride Level 105 mmol/L (98-107) 103 mmol/L (98-107) Carbon Dioxide Level 30 mmol/L (21-32) 29 mmol/L (21-32) Anion Gap 5 (6-14) 9 (6-14) Blood Urea Nitrogen 27 mg/dL (7-20) 18 mg/dL (7-20) Creatinine 1.2 mg/dL (0.6-1.0) 1.0 mg/dL (0.6-1.0) Estimated GFR (Cockcroft-Gault) 42.5 52.4 BUN/Creatinine Ratio 23 (6-20) Glucose Level 99 mg/dL (70-99) 124 mg/dL (70-99) Lactic Acid Level 1.0 mmol/L (0.4-2.0) Calcium Level 8.9 mg/dL (8.5-10.1) 9.4 mg/dL (8.5-10.1) Total Bilirubin 0.2 mg/dL (0.2-1.0) Aspartate Amino Transf (AST/SGOT) 23 U/L (15-37) Alanine Aminotransferase (ALT/SGPT) 22 U/L (14-59) Alkaline Phosphatase 111 U/L (46-116) Troponin I Quantitative 0.054 ng/mL (0.000-0.055) 0.045 ng/mL (0.000-0.055) 0.048 ng/mL (0.000-0.055) NJ-Azk-L-Type Natriuretic Peptide 1490 pg/mL (0-449) Total Protein 6.2 g/dL (6.4-8.2) Albumin 3.2 g/dL (3.4-5.0) Albumin/Globulin Ratio 1.1 (1.0-1.7) Magnesium Level 2.2 mg/dL (1.8-2.4) Thyroid Stimulating Hormone (TSH) 1.696 uIU/mL (0.358-3.74) Medications Active Scripts Medications Dose Route/Sig Max Daily Dose Days Date Category FENTANYL 12mcg/hr (Fentanyl) 1 Each Patch.td72 1 Patch TP Q3DAYS 11/22/17 Reported Nexium Capsule (Esomeprazole Magnesium) 40 Mg Capsule.dr 40 Mg PO DAILYAC 11/22/17 Reported Bactrim 400-80 Mg Tablet (Sulfamethoxazole/Trimethoprim) 1 Each Tablet 1 Each PO BID 7 11/22/17 Reported Voltaren (Diclofenac Sodium) 100 Gm Gel..gram. 2 Gm TP PRN Q6HRS PRN 11/22/17 Reported Senna (Sennosides) 8.8 Mg/5 Ml Syrup 8.8 Mg PO PRN DAILY PRN 11/22/17 Reported Zoloft (Sertraline Hcl) 50 Mg Tablet 1 Tab PO DAILY 11/22/17 Reported Zofran (Ondansetron Hcl) 4 Mg Tablet 1 Tab PO PRN Q6HRS PRN 11/22/17 Reported Hydrocodone-Apap 10-325 (Hydrocodone Bit/Acetaminophen) 1 Each Tablet 0.5 Tab PO PRN Q4HRS PRN 11/22/17 Reported Gabapentin 100 Mg Capsule 100 Mg PO QHS 11/22/17 Reported Ferrous Sulfate 325 Mg Tablet 1 Tab PO DAILY 11/22/17 Reported DURAGESIC 25mcg/hr (Fentanyl) 1 Each Patch.td72 1 Patch TP Q3DAYS 11/22/17 Reported Cetirizine Hcl 10 Mg Tablet 1 Tab PO DAILY 11/22/17 Reported Celebrex (Celecoxib) 100 Mg Capsule 1 Cap PO BID 11/22/17 Reported Calcium (Calcium Carbonate) 600 Mg Tablet 600 Mg PO BID 11/22/17 Reported Biotene (Saliva Substitution Combo No.9) 1,000 Ml Mouthwash 15 Ml MM TIDAFTMEAL 11/22/17 Reported Aspirin 81 Mg Tab.chew 1 Tab PO DAILY 11/22/17 Reported Aspercreme 10% Cream (Trolamine Salicylate/Aloe Vera) 35.4 Gm Cream..g. 35.4 Gm TP TID 11/22/17 Reported Acetaminophen 500 Mg Tablet 1 Tab PO QID PRN 11/22/17 Reported Xopenex (Levalbuterol Hcl) 0.63 Mg/3 Ml Vial.neb 1 Vial NEB PRN QID PRN 11/22/17 Reported Trazodone Hcl 50 Mg Tablet 1 Tab PO QHS 11/22/17 Reported Simethicone 40 Mg/0.6 Ml Drops.susp 40 Mg PO PRN Q4HRS PRN 11/22/17 Reported Robitussin Cough-Chest Dm Liq (Guaifenesin/Dextromethorphan) 237 Ml Liquid 20 Ml PO PRN Q4HRS PRN 11/22/17 Reported Plaquenil (Hydroxychloroquine Sulfate) 200 Mg Tablet 100 Mg PO BID 11/22/17 Reported Norvasc (Amlodipine Besylate) 10 Mg Tablet 10 Mg PO DAILY 11/22/17 Reported Miralax (Polyethylene Glycol 3350) 17 Gm Powd.pack 1 Packet PO BID 11/22/17 Reported Lasix (Furosemide) 20 Mg Tablet 10 Mg PO QMWF 11/22/17 Reported Multi Vitamin Daily (Multivitamin) 1 Each Tablet 1 Each PO DAILY 01/07/15 Reported Alendronate Sodium 70 Mg Tablet 1 Tab PO WEEKLY 12/11/14 Reported Losartan Potassium 100 Mg Tablet 100 Mg PO DAILY 11/25/14 Reported Impression . NOTE DICTATED AGREE WITH POSSIBLE ASPIRATION WILL CONSULT SPEECH DELROY ONTIVEROS MD Nov 22, 2017 16:42
[2017-11-22] MEDS: SALIVA STIMULANT AGENT 44ML SPRAY BOTTLE. PO SCH (17:46)
[2017-11-22 19:00] VITALS: BP 155/65
--- NOTE | 2017-11-22 20:32 | CONS ---
DATE OF CONSULTATION: 11/22/2017 ATTENDING PHYSICIAN: Dr. Bazan. REASON FOR CONSULTATION: The patient seen in pulmonary consultation at the request of Dr. Bazan for shortness of air. HISTORY OF PRESENT ILLNESS: The patient is an 87-year-old that cannot provide me any useful information. She resides at [facility]. Apparently, she presented with shortness of air. At the time of my evaluation, she was in no distress. She was not wearing oxygen. She has been seen by Cardiology who evaluated her and felt that she may have possible aspiration. She does have a pacemaker implantation. PAST MEDICAL HISTORY: Otherwise remarkable for arrhythmias, status post pacemaker implantation, hypertension, chronic pain, rheumatoid arthritis, suspect dementia. SOCIAL HISTORY: No history of alcoholism. She resides at a group home. PAST SURGICAL HISTORY: Status post [employer] pacemaker. FAMILY HISTORY: Noncontributory secondary to age. ALLERGIES: No known drug allergies listed. MEDICATIONS: Current medication list was reviewed. PHYSICAL EXAMINATION: GENERAL: The patient was in no respiratory distress. VITAL SIGNS: Stable. O2 saturation was greater than 92%. HEENT: Eyes, the sclerae were nonicteric. NECK: Jugular venous distention was not elevated. No lymphadenopathy. CHEST: Full expansion. LUNGS: Adequate airway flow with no wheezes. CARDIOVASCULAR: Regular rate and rhythm with S1, S2, no S3. ABDOMEN: Soft, nontender, nondistended. EXTREMITIES: No clubbing, cyanosis, some mild contractures. NEUROLOGIC: The patient was asked to raise her legs off the bed. She was very weak. IMAGING: Chest x-ray reviewed, no acute cardiopulmonary process. LABORATORY DATA: Reviewed. White count was normal. Hemoglobin and hematocrit were noted. Electrolytes were noted. Troponin level was not elevated. IMPRESSION: 1. Progressive dyspnea. 2. Possible aspiration. 3. Suspect dementia. 4. Arrhythmia, status post pacemaker implantation. PLAN: 1. We will consult speech for evaluation. 2. Narrow down antibiotics. 3. I will review the above and make further recommendations. I do appreciate the privilege in sharing in her care. DELROY ONTIVEROS MD DR: WINTER/antolin JOB#: [id number] / [id number]
[2017-11-22] MEDS: POLYETHYLENE GLYCOL 3350 17 GM PACKET. PO SCH (21:00)
[2017-11-22] MEDS ORDERED: GABAPENTIN 100 MG CAPSULE. PO SCH (21:00)
[2017-11-22] MEDS ORDERED: traZODone 50 MG TABLET. PO SCH (21:00)
[2017-11-22] MEDS: GABAPENTIN 100 MG CAPSULE. PO SCH (21:33)
[2017-11-22] MEDS: traZODone 50 MG TABLET. PO SCH (21:33)
[2017-11-22] MEDS: HYDROXYCHLOROQUINE 200 MG TABLET PO SCH (21:34)
[2017-11-22] MEDS: CELECOXIB 100 MG CAPSULE. PO SCH (21:35)
[2017-11-22] MEDS: METHYL SALICYLATE/MENTHOL TOPICAL OINTMENT 29GM TUBE. TP SCH (21:35)
[2017-11-22 23:00] VITALS: BP 129/55
[2017-11-23] MEDS: PIPERACILLIN/TAZOBACTAM 2.25 GM in IV NORMAL SALINE 50ML 50 ML IV SCH ×4 (00:24→17:19)
[2017-11-23 03:00] VITALS: BP 139/53
[2017-11-23 06:10] LABS: ALBUMIN/GLOBULIN RATIO 1.3 (1.0-1.7); CALCIUM 8.4 mg/dL (8.5-10.1); CREATININE 0.8 mg/dL (0.6-1.0); GFR 67.8; POTASSIUM 4.4 mmol/L (3.5-5.1); TOTAL BILIRUBIN 0.4 mg/dL (0.2-1.0); TOTAL PROTEIN 5.3 g/dL (6.4-8.2)
[2017-11-23 07:00] VITALS: BP 145/56
[2017-11-23 07:58] LABS: BASO % 1 % (0-3); EOS % 1 % (0-3); HEMOGLOBIN 11.7 g/dL (12.0-15.5); LYMPH # 0.9 x10^3/uL (1.0-4.8); LYMPH % 12 % (24-48); MEAN CORPUSCULAR HEMOGLOBIN 28 pg (25-35); MEAN CORPUSCULAR HGB CONC 33 g/dL (31-37); MEAN CORPUSCULAR VOLUME 84 fL (79-100); MONO # 0.9 x10^3/uL (0.0-1.1); MONO % 12 % (0-9); NEUT # 5.8 x10^3uL (1.8-7.7); NEUT % 76 % (31-73); PLATELET COUNT 219 x10^3/uL (140-400); RED BLOOD COUNT 4.28 x10^6/uL (3.50-5.40); RED CELL DISTRIBUTION WIDTH 17.5 % (11.5-14.5); WHITE BLOOD COUNT 7.7 x10^3/uL (4.0-11.0)
--- NOTE | 2017-11-23 08:44 | PDOC ---
PULMONARY PROGRESS NOTES Subjective PT FEEL LESS SOA Vitals Vital Signs Date Time Temp Pulse Resp B/P (MAP) Pulse Ox O2 Delivery O2 Flow Rate FiO2 11/23/17 07:00 97.5 68 18 145/56 (85) 91 Room Air 97.5 ROS: No Nausea, No Chest Pain, No Abdominal Pain, No Increase Cough Lungs: Crackles Cardiovascular: S1, S2 Abdomen: Soft Neuro Exam: Alert Extremities: No Edema Skin: Warm Labs Laboratory Tests Test 11/21/17 16:57 11/21/17 20:35 11/21/17 23:30 11/22/17 09:30 White Blood Count 6.7 x10^3/uL (4.0-11.0) Red Blood Count 4.48 x10^6/uL (3.50-5.40) Hemoglobin 12.7 g/dL (12.0-15.5) Hematocrit 37.4 % (36.0-47.0) Mean Corpuscular Volume 84 fL (79-100) Mean Corpuscular Hemoglobin 28 pg (25-35) Mean Corpuscular Hemoglobin Concent 34 g/dL (31-37) Red Cell Distribution Width 17.7 % (11.5-14.5) Platelet Count 201 x10^3/uL (140-400) Neutrophils (%) (Auto) 74 % (31-73) Lymphocytes (%) (Auto) 13 % (24-48) Monocytes (%) (Auto) 11 % (0-9) Eosinophils (%) (Auto) 1 % (0-3) Basophils (%) (Auto) 0 % (0-3) Neutrophils # (Auto) 5.0 x10^3uL (1.8-7.7) Lymphocytes # (Auto) 0.9 x10^3/uL (1.0-4.8) Monocytes # (Auto) 0.8 x10^3/uL (0.0-1.1) Eosinophils # (Auto) 0.1 x10^3/uL (0.0-0.7) Basophils # (Auto) 0.0 x10^3/uL (0.0-0.2) Sodium Level 140 mmol/L (136-145) Potassium Level 3.9 mmol/L (3.5-5.1) Chloride Level 105 mmol/L (98-107) Carbon Dioxide Level 30 mmol/L (21-32) Anion Gap 5 (6-14) Blood Urea Nitrogen 27 mg/dL (7-20) Creatinine 1.2 mg/dL (0.6-1.0) Estimated GFR (Cockcroft-Gault) 42.5 BUN/Creatinine Ratio 23 (6-20) Glucose Level 99 mg/dL (70-99) Lactic Acid Level 1.0 mmol/L (0.4-2.0) Calcium Level 8.9 mg/dL (8.5-10.1) Total Bilirubin 0.2 mg/dL (0.2-1.0) Aspartate Amino Transf (AST/SGOT) 23 U/L (15-37) Alanine Aminotransferase (ALT/SGPT) 22 U/L (14-59) Alkaline Phosphatase 111 U/L (46-116) Troponin I Quantitative 0.054 ng/mL (0.000-0.055) 0.045 ng/mL (0.000-0.055) 0.048 ng/mL (0.000-0.055) EZ-Rxa-T-Type Natriuretic Peptide 1490 pg/mL (0-449) Total Protein 6.2 g/dL (6.4-8.2) Albumin 3.2 g/dL (3.4-5.0) Albumin/Globulin Ratio 1.1 (1.0-1.7) Nasal Screen MRSA (PCR) Negative (Negative) Test 11/22/17 11:40 11/22/17 13:30 11/23/17 04:20 Clostridium difficile Toxin (PCR) Negative (Negative) Sodium Level 141 mmol/L (136-145) 141 mmol/L (136-145) Potassium Level 3.8 mmol/L (3.5-5.1) 4.4 mmol/L (3.5-5.1) Chloride Level 103 mmol/L (98-107) 105 mmol/L (98-107) Carbon Dioxide Level 29 mmol/L (21-32) 26 mmol/L (21-32) Anion Gap 9 (6-14) 10 (6-14) Blood Urea Nitrogen 18 mg/dL (7-20) 16 mg/dL (7-20) Creatinine 1.0 mg/dL (0.6-1.0) 0.8 mg/dL (0.6-1.0) Estimated GFR (Cockcroft-Gault) 52.4 67.8 Glucose Level 124 mg/dL (70-99) 81 mg/dL (70-99) Calcium Level 9.4 mg/dL (8.5-10.1) 8.4 mg/dL (8.5-10.1) Magnesium Level 2.2 mg/dL (1.8-2.4) Thyroid Stimulating Hormone (TSH) 1.696 uIU/mL (0.358-3.74) White Blood Count 7.7 x10^3/uL (4.0-11.0) Red Blood Count 4.28 x10^6/uL (3.50-5.40) Hemoglobin 11.7 g/dL (12.0-15.5) Hematocrit 36.0 % (36.0-47.0) Mean Corpuscular Volume 84 fL (79-100) Mean Corpuscular Hemoglobin 28 pg (25-35) Mean Corpuscular Hemoglobin Concent 33 g/dL (31-37) Red Cell Distribution Width 17.5 % (11.5-14.5) Platelet Count 219 x10^3/uL (140-400) Neutrophils (%) (Auto) 76 % (31-73) Lymphocytes (%) (Auto) 12 % (24-48) Monocytes (%) (Auto) 12 % (0-9) Eosinophils (%) (Auto) 1 % (0-3) Basophils (%) (Auto) 1 % (0-3) Neutrophils # (Auto) 5.8 x10^3uL (1.8-7.7) Lymphocytes # (Auto) 0.9 x10^3/uL (1.0-4.8) Monocytes # (Auto) 0.9 x10^3/uL (0.0-1.1) Eosinophils # (Auto) 0.0 x10^3/uL (0.0-0.7) Basophils # (Auto) 0.0 x10^3/uL (0.0-0.2) BUN/Creatinine Ratio 20 (6-20) Total Bilirubin 0.4 mg/dL (0.2-1.0) Aspartate Amino Transf (AST/SGOT) 29 U/L (15-37) Alanine Aminotransferase (ALT/SGPT) 10 U/L (14-59) Alkaline Phosphatase 87 U/L (46-116) Total Protein 5.3 g/dL (6.4-8.2) Albumin 3.0 g/dL (3.4-5.0) Albumin/Globulin Ratio 1.3 (1.0-1.7) Laboratory Tests Test 11/22/17 09:30 11/22/17 11:40 11/22/17 13:30 11/23/17 04:20 Nasal Screen MRSA (PCR) Negative (Negative) Clostridium difficile Toxin (PCR) Negative (Negative) Sodium Level 141 mmol/L (136-145) 141 mmol/L (136-145) Potassium Level 3.8 mmol/L (3.5-5.1) 4.4 mmol/L (3.5-5.1) Chloride Level 103 mmol/L (98-107) 105 mmol/L (98-107) Carbon Dioxide Level 29 mmol/L (21-32) 26 mmol/L (21-32) Anion Gap 9 (6-14) 10 (6-14) Blood Urea Nitrogen 18 mg/dL (7-20) 16 mg/dL (7-20) Creatinine 1.0 mg/dL (0.6-1.0) 0.8 mg/dL (0.6-1.0) Estimated GFR (Cockcroft-Gault) 52.4 67.8 Glucose Level 124 mg/dL (70-99) 81 mg/dL (70-99) Calcium Level 9.4 mg/dL (8.5-10.1) 8.4 mg/dL (8.5-10.1) Magnesium Level 2.2 mg/dL (1.8-2.4) Thyroid Stimulating Hormone (TSH) 1.696 uIU/mL (0.358-3.74) White Blood Count 7.7 x10^3/uL (4.0-11.0) Red Blood Count 4.28 x10^6/uL (3.50-5.40) Hemoglobin 11.7 g/dL (12.0-15.5) Hematocrit 36.0 % (36.0-47.0) Mean Corpuscular Volume 84 fL (79-100) Mean Corpuscular Hemoglobin 28 pg (25-35) Mean Corpuscular Hemoglobin Concent 33 g/dL (31-37) Red Cell Distribution Width 17.5 % (11.5-14.5) Platelet Count 219 x10^3/uL (140-400) Neutrophils (%) (Auto) 76 % (31-73) Lymphocytes (%) (Auto) 12 % (24-48) Monocytes (%) (Auto) 12 % (0-9) Eosinophils (%) (Auto) 1 % (0-3) Basophils (%) (Auto) 1 % (0-3) Neutrophils # (Auto) 5.8 x10^3uL (1.8-7.7) Lymphocytes # (Auto) 0.9 x10^3/uL (1.0-4.8) Monocytes # (Auto) 0.9 x10^3/uL (0.0-1.1) Eosinophils # (Auto) 0.0 x10^3/uL (0.0-0.7) Basophils # (Auto) 0.0 x10^3/uL (0.0-0.2) BUN/Creatinine Ratio 20 (6-20) Total Bilirubin 0.4 mg/dL (0.2-1.0) Aspartate Amino Transf (AST/SGOT) 29 U/L (15-37) Alanine Aminotransferase (ALT/SGPT) 10 U/L (14-59) Alkaline Phosphatase 87 U/L (46-116) Total Protein 5.3 g/dL (6.4-8.2) Albumin 3.0 g/dL (3.4-5.0) Albumin/Globulin Ratio 1.3 (1.0-1.7) Medications Active Scripts Medications Dose Route/Sig Max Daily Dose Days Date Category FENTANYL 12mcg/hr (Fentanyl) 1 Each Patch.td72 1 Patch TP Q3DAYS 11/22/17 Reported Nexium Capsule (Esomeprazole Magnesium) 40 Mg Capsule.dr 40 Mg PO DAILYAC 11/22/17 Reported Bactrim 400-80 Mg Tablet (Sulfamethoxazole/Trimethoprim) 1 Each Tablet 1 Each PO BID 7 11/22/17 Reported Voltaren (Diclofenac Sodium) 100 Gm Gel..gram. 2 Gm TP PRN Q6HRS PRN 11/22/17 Reported Senna (Sennosides) 8.8 Mg/5 Ml Syrup 8.8 Mg PO PRN DAILY PRN 11/22/17 Reported Zoloft (Sertraline Hcl) 50 Mg Tablet 1 Tab PO DAILY 11/22/17 Reported Zofran (Ondansetron Hcl) 4 Mg Tablet 1 Tab PO PRN Q6HRS PRN 11/22/17 Reported Hydrocodone-Apap 10-325 (Hydrocodone Bit/Acetaminophen) 1 Each Tablet 0.5 Tab PO PRN Q4HRS PRN 11/22/17 Reported Gabapentin 100 Mg Capsule 100 Mg PO QHS 11/22/17 Reported Ferrous Sulfate 325 Mg Tablet 1 Tab PO DAILY 11/22/17 Reported DURAGESIC 25mcg/hr (Fentanyl) 1 Each Patch.td72 1 Patch TP Q3DAYS 11/22/17 Reported Cetirizine Hcl 10 Mg Tablet 1 Tab PO DAILY 11/22/17 Reported Celebrex (Celecoxib) 100 Mg Capsule 1 Cap PO BID 11/22/17 Reported Calcium (Calcium Carbonate) 600 Mg Tablet 600 Mg PO BID 11/22/17 Reported Biotene (Saliva Substitution Combo No.9) 1,000 Ml Mouthwash 15 Ml MM TIDAFTMEAL 11/22/17 Reported Aspirin 81 Mg Tab.chew 1 Tab PO DAILY 11/22/17 Reported Aspercreme 10% Cream (Trolamine Salicylate/Aloe Vera) 35.4 Gm Cream..g. 35.4 Gm TP TID 11/22/17 Reported Acetaminophen 500 Mg Tablet 1 Tab PO QID PRN 11/22/17 Reported Xopenex (Levalbuterol Hcl) 0.63 Mg/3 Ml Vial.neb 1 Vial NEB PRN QID PRN 11/22/17 Reported Trazodone Hcl 50 Mg Tablet 1 Tab PO QHS 11/22/17 Reported Simethicone 40 Mg/0.6 Ml Drops.susp 40 Mg PO PRN Q4HRS PRN 11/22/17 Reported Robitussin Cough-Chest Dm Liq (Guaifenesin/Dextromethorphan) 237 Ml Liquid 20 Ml PO PRN Q4HRS PRN 11/22/17 Reported Plaquenil (Hydroxychloroquine Sulfate) 200 Mg Tablet 100 Mg PO BID 11/22/17 Reported Norvasc (Amlodipine Besylate) 10 Mg Tablet 10 Mg PO DAILY 11/22/17 Reported Miralax (Polyethylene Glycol 3350) 17 Gm Powd.pack 1 Packet PO BID 11/22/17 Reported Lasix (Furosemide) 20 Mg Tablet 10 Mg PO QMWF 11/22/17 Reported Multi Vitamin Daily (Multivitamin) 1 Each Tablet 1 Each PO DAILY 01/07/15 Reported Alendronate Sodium 70 Mg Tablet 1 Tab PO WEEKLY 12/11/14 Reported Losartan Potassium 100 Mg Tablet 100 Mg PO DAILY 11/25/14 Reported Impression . IMPRESSION: 1. Progressive dyspnea. 2. Possible aspiration. 3. Suspect dementia. 4. Arrhythmia, status post pacemaker implantation. 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 This results in stasis of the ingested materials in the lower cervical esophagus with back flow and intermittent aspiration. Upper endoscopic evaluation is suggested. Plan . CONSULT GI SEE VIDEO SWALLOW REPORT ANTIBX 02 DIET PER SPEECH DELROY ONTIVEROS MD Nov 23, 2017 08:44
[2017-11-23] MEDS: POLYETHYLENE GLYCOL 3350 17 GM PACKET. PO SCH ×2 (09:00→21:00)
[2017-11-23] MEDS: SERTRALINE 50 MG TABLET. PO SCH (09:09)
[2017-11-23] MEDS: FUROSEMIDE 20 MG TABLET PO SCH (09:09)
[2017-11-23] MEDS: MULTIVITAMIN with MINERAL TABLET. PO SCH (09:09)
[2017-11-23] MEDS: ASPIRIN CHEWABLE 81 MG TABLET. PO SCH (09:09)
[2017-11-23] MEDS: HYDROXYCHLOROQUINE 200 MG TABLET PO SCH ×2 (09:09→21:00)
[2017-11-23] MEDS: LOSARTAN POTASSIUM 50 MG TABLET. PO SCH (09:10)
[2017-11-23] MEDS: CETIRIZINE HCL 10 MG TABLET. PO SCH (09:10)
[2017-11-23] MEDS: CELECOXIB 100 MG CAPSULE. PO SCH ×2 (09:10→21:00)
[2017-11-23] MEDS: FERROUS SULFATE 325 MG TABLET. PO SCH (09:10)
[2017-11-23] MEDS: METHYL SALICYLATE/MENTHOL TOPICAL OINTMENT 29GM TUBE. TP SCH ×3 (09:11→21:00)
[2017-11-23] MEDS: SALIVA STIMULANT AGENT 44ML SPRAY BOTTLE. PO SCH ×3 (10:06→17:19)
[2017-11-23 11:00] VITALS: BP 129/46
[2017-11-23] MEDS ORDERED: BARIUM SULFATE 40% (APPLE) 148 GM PWD. PO ONE (11:00)
--- NOTE | 2017-11-23 11:43 | RAD ---
Video dysphasia study, 11/23/2017: History: Dysphasia The swallowing mechanism was examined fluoroscopically in the lateral projection while the patient ingested a variety of food materials mixed with barium. 2.3 minutes of fluoroscopy time was utilized. One video fluoroscopic loop was recorded by a member of the speech Department. 2 additional static and dynamic fluoroscopic images were obtained. The patient demonstrated good oral control of the barium materials. There was initially good passage of the honey thickened material into the lower cervical esophagus. Backflow was then evident from the lower cervical esophagus back into the pharynx. With additional swallows this backflow continued resulting in filling of the piriform sinuses and kemar aspiration. There was also mild laryngeal penetration during swallowing of the thin liquids. Additional lateral images were obtained in the lower cervical and upper thoracic regions. These limited images demonstrated an esophageal stricture at approximately the cervicothoracic junction level with partial obstruction to flow of the contrast through that region. 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 This results in stasis of the ingested materials in the lower cervical esophagus with back flow and intermittent aspiration. Upper endoscopic evaluation is suggested.
--- NOTE | 2017-11-23 11:47 | PDOC ---
CARDIO Progress Notes Date and Time Date of Service 11/23/2017 Time of Evaluation 1140 Subjective Subjective: No Chest Pain, No shortness of breath, No Palpitations Vitals Vitals Vital Signs Date Time Temp Pulse Resp B/P (MAP) Pulse Ox O2 Delivery O2 Flow Rate FiO2 11/23/17 11:00 62 18 129/46 (73) 90 Room Air 11/23/17 07:00 97.5 97.5 Weight Weight [ ] Input and Output Intake and Output Intake and Output 11/23/17 07:00 Intake Total 150 ml Balance 150 ml Intake Oral 100 ml IV Total 50 ml # Voids 5 # Bowel Movements 5 Laboratory Labs Laboratory Tests Test 11/22/17 13:30 11/23/17 04:20 Sodium Level 141 mmol/L (136-145) 141 mmol/L (136-145) Potassium Level 3.8 mmol/L (3.5-5.1) 4.4 mmol/L (3.5-5.1) Chloride Level 103 mmol/L (98-107) 105 mmol/L (98-107) Carbon Dioxide Level 29 mmol/L (21-32) 26 mmol/L (21-32) Anion Gap 9 (6-14) 10 (6-14) Blood Urea Nitrogen 18 mg/dL (7-20) 16 mg/dL (7-20) Creatinine 1.0 mg/dL (0.6-1.0) 0.8 mg/dL (0.6-1.0) Estimated GFR (Cockcroft-Gault) 52.4 67.8 Glucose Level 124 mg/dL (70-99) 81 mg/dL (70-99) Calcium Level 9.4 mg/dL (8.5-10.1) 8.4 mg/dL (8.5-10.1) Magnesium Level 2.2 mg/dL (1.8-2.4) Thyroid Stimulating Hormone (TSH) 1.696 uIU/mL (0.358-3.74) White Blood Count 7.7 x10^3/uL (4.0-11.0) Red Blood Count 4.28 x10^6/uL (3.50-5.40) Hemoglobin 11.7 g/dL (12.0-15.5) Hematocrit 36.0 % (36.0-47.0) Mean Corpuscular Volume 84 fL (79-100) Mean Corpuscular Hemoglobin 28 pg (25-35) Mean Corpuscular Hemoglobin Concent 33 g/dL (31-37) Red Cell Distribution Width 17.5 % (11.5-14.5) Platelet Count 219 x10^3/uL (140-400) Neutrophils (%) (Auto) 76 % (31-73) Lymphocytes (%) (Auto) 12 % (24-48) Monocytes (%) (Auto) 12 % (0-9) Eosinophils (%) (Auto) 1 % (0-3) Basophils (%) (Auto) 1 % (0-3) Neutrophils # (Auto) 5.8 x10^3uL (1.8-7.7) Lymphocytes # (Auto) 0.9 x10^3/uL (1.0-4.8) Monocytes # (Auto) 0.9 x10^3/uL (0.0-1.1) Eosinophils # (Auto) 0.0 x10^3/uL (0.0-0.7) Basophils # (Auto) 0.0 x10^3/uL (0.0-0.2) BUN/Creatinine Ratio 20 (6-20) Total Bilirubin 0.4 mg/dL (0.2-1.0) Aspartate Amino Transf (AST/SGOT) 29 U/L (15-37) Alanine Aminotransferase (ALT/SGPT) 10 U/L (14-59) Alkaline Phosphatase 87 U/L (46-116) Total Protein 5.3 g/dL (6.4-8.2) Albumin 3.0 g/dL (3.4-5.0) Albumin/Globulin Ratio 1.3 (1.0-1.7) Microbiology Micro Microbiology 11/21/17 Blood Culture - Preliminary, Resulted NO GROWTH AFTER 1 DAY Physical Exam HEENT: Neck Supple W Full Motion Chest: Symmetric LUNGS: Other (basilar crackles) Heart: RRR (paced) Abdomen: Soft N/T Extremities: No Calf Tenderness Neurology: alert, follow commands Assessment Assessment 1. Dyspnea/nasal congestion: possible aspiration, video swallow pending 2. PPM in situ with past SSS: medtronic. Normal device function, paced rhythm 3. HTN: controlled 4. Dementia 5. Likely FTT with deconditioning and chronic pain 6. Chronic diastolic/systolic CHF: compensated. EF currently at 40% with mild valvular insufficiency 7. Polypharmacy Recommendations 1. Continue current cardiac regimen 2. Discussed cardiac treatment plan with daughter. Family does not want any invasive procedures and to continue with medical therapy. 3. Nothing further at this time. Follow up in office in 4 weeks. DIXON TAI APRN Nov 23, 2017 11:47
--- NOTE | 2017-11-23 12:01 | PDOC ---
PROGRESS NOTES Chief Complaint Chief Complaint sob History of Present Illness History of Present Illness ASSESSMENT ASSESSMENT/PLAN #esophageal stricture likely 1. Dyspnea/ congestion: possible aspiration. DAughter thinks she is aspirating 2. PPM / SSS: 3. HTN: c 4. Dementia 5. chronic pain: 6. Chronic diastolic CHF: compensated. plan - likely above, gi to see - med mgmt - see orders - ptot Vitals Vitals Vital Signs Date Time Temp Pulse Resp B/P (MAP) Pulse Ox O2 Delivery O2 Flow Rate FiO2 11/23/17 11:00 62 18 129/46 (73) 90 Room Air 11/23/17 07:00 97.5 97.5 Physical Exam Physical Exam she says she is doing well, no complaints, no nausea or vmoiting, no fever or chills General: Alert, Oriented X3, Cooperative, No acute distress Heart: Regular rate (Paced), Normal S1, Other (3/6 systolic murmur to apex) Lungs: Crackles Abdomen: Soft, No tenderness Extremities: No clubbing, No cyanosis, No edema Skin: No breakdown, No significant lesion Labs LABS Laboratory Tests Test 11/22/17 13:30 11/23/17 04:20 Sodium Level 141 mmol/L (136-145) 141 mmol/L (136-145) Potassium Level 3.8 mmol/L (3.5-5.1) 4.4 mmol/L (3.5-5.1) Chloride Level 103 mmol/L (98-107) 105 mmol/L (98-107) Carbon Dioxide Level 29 mmol/L (21-32) 26 mmol/L (21-32) Anion Gap 9 (6-14) 10 (6-14) Blood Urea Nitrogen 18 mg/dL (7-20) 16 mg/dL (7-20) Creatinine 1.0 mg/dL (0.6-1.0) 0.8 mg/dL (0.6-1.0) Estimated GFR (Cockcroft-Gault) 52.4 67.8 Glucose Level 124 mg/dL (70-99) 81 mg/dL (70-99) Calcium Level 9.4 mg/dL (8.5-10.1) 8.4 mg/dL (8.5-10.1) Magnesium Level 2.2 mg/dL (1.8-2.4) Thyroid Stimulating Hormone (TSH) 1.696 uIU/mL (0.358-3.74) White Blood Count 7.7 x10^3/uL (4.0-11.0) Red Blood Count 4.28 x10^6/uL (3.50-5.40) Hemoglobin 11.7 g/dL (12.0-15.5) Hematocrit 36.0 % (36.0-47.0) Mean Corpuscular Volume 84 fL (79-100) Mean Corpuscular Hemoglobin 28 pg (25-35) Mean Corpuscular Hemoglobin Concent 33 g/dL (31-37) Red Cell Distribution Width 17.5 % (11.5-14.5) Platelet Count 219 x10^3/uL (140-400) Neutrophils (%) (Auto) 76 % (31-73) Lymphocytes (%) (Auto) 12 % (24-48) Monocytes (%) (Auto) 12 % (0-9) Eosinophils (%) (Auto) 1 % (0-3) Basophils (%) (Auto) 1 % (0-3) Neutrophils # (Auto) 5.8 x10^3uL (1.8-7.7) Lymphocytes # (Auto) 0.9 x10^3/uL (1.0-4.8) Monocytes # (Auto) 0.9 x10^3/uL (0.0-1.1) Eosinophils # (Auto) 0.0 x10^3/uL (0.0-0.7) Basophils # (Auto) 0.0 x10^3/uL (0.0-0.2) BUN/Creatinine Ratio 20 (6-20) Total Bilirubin 0.4 mg/dL (0.2-1.0) Aspartate Amino Transf (AST/SGOT) 29 U/L (15-37) Alanine Aminotransferase (ALT/SGPT) 10 U/L (14-59) Alkaline Phosphatase 87 U/L (46-116) Total Protein 5.3 g/dL (6.4-8.2) Albumin 3.0 g/dL (3.4-5.0) Albumin/Globulin Ratio 1.3 (1.0-1.7) Comment Review of Relevant I have reviewed the following items hilario (where applicable) has been applied. Labs Laboratory Tests Test 11/21/17 16:57 11/21/17 20:35 11/21/17 23:30 11/22/17 09:30 White Blood Count 6.7 x10^3/uL (4.0-11.0) Red Blood Count 4.48 x10^6/uL (3.50-5.40) Hemoglobin 12.7 g/dL (12.0-15.5) Hematocrit 37.4 % (36.0-47.0) Mean Corpuscular Volume 84 fL (79-100) Mean Corpuscular Hemoglobin 28 pg (25-35) Mean Corpuscular Hemoglobin Concent 34 g/dL (31-37) Red Cell Distribution Width 17.7 % (11.5-14.5) Platelet Count 201 x10^3/uL (140-400) Neutrophils (%) (Auto) 74 % (31-73) Lymphocytes (%) (Auto) 13 % (24-48) Monocytes (%) (Auto) 11 % (0-9) Eosinophils (%) (Auto) 1 % (0-3) Basophils (%) (Auto) 0 % (0-3) Neutrophils # (Auto) 5.0 x10^3uL (1.8-7.7) Lymphocytes # (Auto) 0.9 x10^3/uL (1.0-4.8) Monocytes # (Auto) 0.8 x10^3/uL (0.0-1.1) Eosinophils # (Auto) 0.1 x10^3/uL (0.0-0.7) Basophils # (Auto) 0.0 x10^3/uL (0.0-0.2) Sodium Level 140 mmol/L (136-145) Potassium Level 3.9 mmol/L (3.5-5.1) Chloride Level 105 mmol/L (98-107) Carbon Dioxide Level 30 mmol/L (21-32) Anion Gap 5 (6-14) Blood Urea Nitrogen 27 mg/dL (7-20) Creatinine 1.2 mg/dL (0.6-1.0) Estimated GFR (Cockcroft-Gault) 42.5 BUN/Creatinine Ratio 23 (6-20) Glucose Level 99 mg/dL (70-99) Lactic Acid Level 1.0 mmol/L (0.4-2.0) Calcium Level 8.9 mg/dL (8.5-10.1) Total Bilirubin 0.2 mg/dL (0.2-1.0) Aspartate Amino Transf (AST/SGOT) 23 U/L (15-37) Alanine Aminotransferase (ALT/SGPT) 22 U/L (14-59) Alkaline Phosphatase 111 U/L (46-116) Troponin I Quantitative 0.054 ng/mL (0.000-0.055) 0.045 ng/mL (0.000-0.055) 0.048 ng/mL (0.000-0.055) AU-Bld-Q-Type Natriuretic Peptide 1490 pg/mL (0-449) Total Protein 6.2 g/dL (6.4-8.2) Albumin 3.2 g/dL (3.4-5.0) Albumin/Globulin Ratio 1.1 (1.0-1.7) Nasal Screen MRSA (PCR) Negative (Negative) Test 11/22/17 11:40 11/22/17 13:30 11/23/17 04:20 Clostridium difficile Toxin (PCR) Negative (Negative) Sodium Level 141 mmol/L (136-145) 141 mmol/L (136-145) Potassium Level 3.8 mmol/L (3.5-5.1) 4.4 mmol/L (3.5-5.1) Chloride Level 103 mmol/L (98-107) 105 mmol/L (98-107) Carbon Dioxide Level 29 mmol/L (21-32) 26 mmol/L (21-32) Anion Gap 9 (6-14) 10 (6-14) Blood Urea Nitrogen 18 mg/dL (7-20) 16 mg/dL (7-20) Creatinine 1.0 mg/dL (0.6-1.0) 0.8 mg/dL (0.6-1.0) Estimated GFR (Cockcroft-Gault) 52.4 67.8 Glucose Level 124 mg/dL (70-99) 81 mg/dL (70-99) Calcium Level 9.4 mg/dL (8.5-10.1) 8.4 mg/dL (8.5-10.1) Magnesium Level 2.2 mg/dL (1.8-2.4) Thyroid Stimulating Hormone (TSH) 1.696 uIU/mL (0.358-3.74) White Blood Count 7.7 x10^3/uL (4.0-11.0) Red Blood Count 4.28 x10^6/uL (3.50-5.40) Hemoglobin 11.7 g/dL (12.0-15.5) Hematocrit 36.0 % (36.0-47.0) Mean Corpuscular Volume 84 fL (79-100) Mean Corpuscular Hemoglobin 28 pg (25-35) Mean Corpuscular Hemoglobin Concent 33 g/dL (31-37) Red Cell Distribution Width 17.5 % (11.5-14.5) Platelet Count 219 x10^3/uL (140-400) Neutrophils (%) (Auto) 76 % (31-73) Lymphocytes (%) (Auto) 12 % (24-48) Monocytes (%) (Auto) 12 % (0-9) Eosinophils (%) (Auto) 1 % (0-3) Basophils (%) (Auto) 1 % (0-3) Neutrophils # (Auto) 5.8 x10^3uL (1.8-7.7) Lymphocytes # (Auto) 0.9 x10^3/uL (1.0-4.8) Monocytes # (Auto) 0.9 x10^3/uL (0.0-1.1) Eosinophils # (Auto) 0.0 x10^3/uL (0.0-0.7) Basophils # (Auto) 0.0 x10^3/uL (0.0-0.2) BUN/Creatinine Ratio 20 (6-20) Total Bilirubin 0.4 mg/dL (0.2-1.0) Aspartate Amino Transf (AST/SGOT) 29 U/L (15-37) Alanine Aminotransferase (ALT/SGPT) 10 U/L (14-59) Alkaline Phosphatase 87 U/L (46-116) Total Protein 5.3 g/dL (6.4-8.2) Albumin 3.0 g/dL (3.4-5.0) Albumin/Globulin Ratio 1.3 (1.0-1.7) Laboratory Tests Test 11/22/17 13:30 11/23/17 04:20 Sodium Level 141 mmol/L (136-145) 141 mmol/L (136-145) Potassium Level 3.8 mmol/L (3.5-5.1) 4.4 mmol/L (3.5-5.1) Chloride Level 103 mmol/L (98-107) 105 mmol/L (98-107) Carbon Dioxide Level 29 mmol/L (21-32) 26 mmol/L (21-32) Anion Gap 9 (6-14) 10 (6-14) Blood Urea Nitrogen 18 mg/dL (7-20) 16 mg/dL (7-20) Creatinine 1.0 mg/dL (0.6-1.0) 0.8 mg/dL (0.6-1.0) Estimated GFR (Cockcroft-Gault) 52.4 67.8 Glucose Level 124 mg/dL (70-99) 81 mg/dL (70-99) Calcium Level 9.4 mg/dL (8.5-10.1) 8.4 mg/dL (8.5-10.1) Magnesium Level 2.2 mg/dL (1.8-2.4) Thyroid Stimulating Hormone (TSH) 1.696 uIU/mL (0.358-3.74) White Blood Count 7.7 x10^3/uL (4.0-11.0) Red Blood Count 4.28 x10^6/uL (3.50-5.40) Hemoglobin 11.7 g/dL (12.0-15.5) Hematocrit 36.0 % (36.0-47.0) Mean Corpuscular Volume 84 fL (79-100) Mean Corpuscular Hemoglobin 28 pg (25-35) Mean Corpuscular Hemoglobin Concent 33 g/dL (31-37) Red Cell Distribution Width 17.5 % (11.5-14.5) Platelet Count 219 x10^3/uL (140-400) Neutrophils (%) (Auto) 76 % (31-73) Lymphocytes (%) (Auto) 12 % (24-48) Monocytes (%) (Auto) 12 % (0-9) Eosinophils (%) (Auto) 1 % (0-3) Basophils (%) (Auto) 1 % (0-3) Neutrophils # (Auto) 5.8 x10^3uL (1.8-7.7) Lymphocytes # (Auto) 0.9 x10^3/uL (1.0-4.8) Monocytes # (Auto) 0.9 x10^3/uL (0.0-1.1) Eosinophils # (Auto) 0.0 x10^3/uL (0.0-0.7) Basophils # (Auto) 0.0 x10^3/uL (0.0-0.2) BUN/Creatinine Ratio 20 (6-20) Total Bilirubin 0.4 mg/dL (0.2-1.0) Aspartate Amino Transf (AST/SGOT) 29 U/L (15-37) Alanine Aminotransferase (ALT/SGPT) 10 U/L (14-59) Alkaline Phosphatase 87 U/L (46-116) Total Protein 5.3 g/dL (6.4-8.2) Albumin 3.0 g/dL (3.4-5.0) Albumin/Globulin Ratio 1.3 (1.0-1.7) Microbiology 11/21/17 Blood Culture - Preliminary, Resulted NO GROWTH AFTER 1 DAY Medications Current Medications Furosemide (Lasix) 20 mg 1X ONCE IVP Last administered on 11/21/17at 18:03; Start 11/21/17 at 17:45; Stop 11/21/17 at 17:46; Status DC Ondansetron HCl (Zofran) 4 mg PRN Q8HRS PRN IV NAUSEA/VOMITING Last administered on 11/22/17at 15:05; Start 11/21/17 at 17:45; Stop 11/22/17 at 17:44 ; Status DC Acetaminophen (Tylenol) 650 mg PRN Q4HRS PRN PO FEVER Last administered on 11/22at 08:46; Start 11/21/17 at 17:45; Stop 11/22/17 at 14:18; Status DC Albuterol/ Ipratropium (Duoneb) 3 ml RTQID NEB Last administered on 11/22/17at 15:19; Start 11/21/17 at 20:00; Stop 11/22/17 at 19:59; Status DC Acetaminophen (Tylenol) 650 mg PRN Q6HRS PRN PO MILD PAIN; Start 11/22/17 at 00 :45; Status Cancel Calcium Carbonate/ Glycine (Oscal) 500 mg DAILY PO ; Start 11/22/17 at 09:00; Status Cancel Celecoxib (CeleBREX) 100 mg BID PO ; Start 11/22/17 at 09:00; Status Cancel Docusate Sodium (Colace) 100 mg PRN BID PRN PO CONSTIPATION 1ST CHOICE; Start 11/22/17 at 00:45; Status Cancel Fentanyl (Duragesic 25mcg/ Hr Patch) 1 patch Q72H TD ; Start 11/22/17 at 00:45; Status UNV Aspirin (Ecotrin) 81 mg DAILYWBKFT PO ; Start 11/22/17 at 08:00; Status Cancel Trimethoprim/ Sulfamethoxazole (Bactrim Ds) 0.5 tab BID PO ; Start 11/22/17 at 09:00; Stop 11/24/17 at 08:59; Status Cancel Cetirizine HCl (ZyrTEC) 10 mg DAILY PO ; Start 11/22/17 at 09:00; Status Cancel Ferrous Sulfate (Feosol) 325 mg DAILYWBKFT PO ; Start 11/22/17 at 08:00; Status Cancel Gabapentin (Neurontin) 100 mg HS PO ; Start 11/22/17 at 21:00; Status Cancel Acetaminophen/ Hydrocodone Bitart (Lortab 10/325) 0.5 tab PRN Q4HRS PRN PO SEVERE PAIN; Start 11/22/17 at 00:45; Status Cancel Furosemide (Lasix) 10 mg QMWF PO ; Start 11/23/17 at 16:00; Status Cancel Losartan Potassium (Cozaar) 100 mg DAILY PO ; Start 11/22/17 at 09:00; Status Cancel Polyethylene Glycol (miraLAX PACKET) 17 gm BID PO ; Start 11/22/17 at 09:00; Status Cancel Amlodipine Besylate (Norvasc) 10 mg DAILY PO ; Start 11/22/17 at 09:00; Status Cancel Hydroxychloroquine Sulfate (Plaquenil) 100 mg BID PO ; Start 11/22/17 at 09:00; Status Cancel Guaifenesin (Robitussin Dm) 5 ml PRN Q4HRS PRN PO COUGH 1ST CHOICE; Start 11/22 at 00:45; Status Cancel Sennosides (Senna) 8.6 mg PRN BID PRN PO CONSTIPATION 2ND CHOICE; Start at 00:45; Status Cancel Simethicone (Gas-X) 80 mg PRN Q4HRS PRN PO INDIGESTION; Start 11/22/17 at 00:45 ; Status Cancel Trazodone HCl (Desyrel) 50 mg QHS PO ; Start 11/22/17 at 21:00; Status Cancel Diclofenac Sodium (Voltaren) 1 angel PRN Q6HRS PRN TP TOPICAL PAIN; Start at 00:45; Status Cancel Sertraline HCl (Zoloft) 50 mg DAILY PO ; Start 11/22/17 at 09:00; Status Cancel Lactobacillus Rhamnosus (Culturelle) 1 cap BID PO ; Start 11/22/17 at 09:00; Status Cancel Piperacillin Sod/ Tazobactam Sod (Zosyn Per Pharmacy) 1 each PRN DAILY PRN MC SEE COMMENTS; Start 11/22/17 at 13:30 Piperacillin Sod/ Tazobactam Sod 2.25 gm/Sodium Chloride 50 ml @ 100 mls/hr Q6HRS IV Last administered on 11/23/17at 06:28; Start 11/22/17 at 13:30 Acetaminophen (Tylenol) 500 mg QID PRN PO MILD PAIN; Start 11/22/17 at 14:00 Amlodipine Besylate (Norvasc) 10 mg DAILY16 PO Last administered on 11/22/17at 16:31; Start 11/22/17 at 16:00 Aspirin (Children'S Aspirin) 81 mg DAILY PO Last administered on 11/23/17at 09: 09; Start 11/22/17 at 15:00 Celecoxib (CeleBREX) 100 mg BID PO Last administered on 11/23/17at 09:10; Start 11/22/17 at 21:00 Cetirizine HCl (ZyrTEC) 10 mg DAILY PO Last administered on 11/23/17at 09:10; Start 11/22/17 at 15:00 Diclofenac Sodium (Voltaren) 2 angel PRN Q6HRS PRN TP PAIN; Start 11/22/17 at 14: 00 Fentanyl (Duragesic 25mcg/ Hr Patch) 1 patch Q3DAYS TD Last administered on at 15:06; Start 11/22/17 at 15:00 Fentanyl (Duragesic 12mcg/ Hr Patch) 1 patch Q3DAYS TD Last administered on 15:07; Start 11/22/17 at 15:00 Ferrous Sulfate (Feosol) 325 mg DAILY PO Last administered on 11/23/17 09:10; Start 11/22/17 at 15:00 Furosemide (Lasix) 10 mg QMWF@0900 PO Last administered on 11/23/17 09:09; Start 11/23/17 at 09:00 Gabapentin (Neurontin) 100 mg QHS PO Last administered on 11/22/17 21:33; Start 11/22/17 at 21:00 Sertraline HCl (Zoloft) 50 mg DAILY PO Last administered on 11/23/17 09:09; Start 11/22/17 at 15:00 Simethicone (Gas-X) 40 mg PRN Q4HRS PRN PO GAS / BLOATING; Start 11/22/17 at 14 :15 Trazodone HCl (Desyrel) 50 mg QHS PO Last administered on 11/22/17at 21:33; Start 11/22/17 at 21:00 Guaifenesin (Robitussin Dm) 10 ml PRN Q4HRS PRN PO COUGH; Start 11/22/17 at 14: 30 Acetaminophen/ Hydrocodone Bitart (Lortab 10/325) 0.5 tab PRN Q4HRS PRN PO MOD TO SEVERE PAIN; Start 11/22/17 at 14:30 Hydroxychloroquine Sulfate (Plaquenil) 100 mg BID PO Last administered on at 09:09; Start 11/22/17 at 21:00 Albuterol Sulfate (Ventolin Neb Soln) 2.5 mg PRN Q6HRS PRN NEB SHORTNESS OF BREATH; Start 11/22/17 at 14:30 Losartan Potassium (Cozaar) 100 mg DAILY PO Last administered on 11/23/17 09: 10; Start 11/23/17 at 09:00 Multivitamins (Thera M Plus) 1 tab DAILY PO Last administered on 11/23/17 09: 09; Start 11/22/17 at 15:00 Ondansetron HCl (Zofran Odt) 4 mg PRN Q8HRS PRN PO NAUSEA/VOMITING; Start 11/22 at 14:30 Polyethylene Glycol (miraLAX PACKET) 17 gm BID PO ; Start 11/22/17 at 21:00 Saliva Substitute (Biotene Moisturizing Mouth) 2 spray TIDAFTMEAL PO Last administered on 11/23/17at 10:06; Start 11/22/17 at 18:00 Sennosides (Senna) 8.6 mg PRN DAILY PRN PO CONSTIPATION; Start 11/22/17 at 14: 30 Multi-Ingredient Ointment (Analgesic Valentine) 1 angel TID TP Last administered on at 09:11; Start 11/22/17 at 21:00 Alprazolam (Xanax) 0.25 mg PRN Q8HRS PRN PO ANXIETY / AGITATION; Start at 14:00 Barium Sulfate (Varibar Thin Liquid Apple) 148 gm 1X ONCE PO Last administered on 11/23/17at 11:23; Start 11/23/17 at 11:00; Stop 11/23/17 at 11:01 ; Status DC Active Scripts Active Reported FENTANYL 12mcg/hr (Fentanyl) 1 Each Patch.td72 1 Patch TP Q3DAYS Nexium Capsule (Esomeprazole Magnesium) 40 Mg Capsule.dr 40 Mg PO DAILYAC Bactrim 400-80 Mg Tablet (Sulfamethoxazole/Trimethoprim) 1 Each Tablet 1 Each PO BID 7 Days Voltaren (Diclofenac Sodium) 100 Gm Gel..gram. 2 Gm TP PRN Q6HRS PRN Senna (Sennosides) 8.8 Mg/5 Ml Syrup 8.8 Mg PO PRN DAILY PRN Zoloft (Sertraline Hcl) 50 Mg Tablet 1 Tab PO DAILY Zofran (Ondansetron Hcl) 4 Mg Tablet 1 Tab PO PRN Q6HRS PRN Hydrocodone-Apap 10-325 (Hydrocodone Bit/Acetaminophen) 1 Each Tablet 0.5 Tab PO PRN Q4HRS PRN Gabapentin 100 Mg Capsule 100 Mg PO QHS Ferrous Sulfate 325 Mg Tablet 1 Tab PO DAILY DURAGESIC 25mcg/hr (Fentanyl) 1 Each Patch.td72 1 Patch TP Q3DAYS Cetirizine Hcl 10 Mg Tablet 1 Tab PO DAILY Celebrex (Celecoxib) 100 Mg Capsule 1 Cap PO BID Calcium (Calcium Carbonate) 600 Mg Tablet 600 Mg PO BID Biotene (Saliva Substitution Combo No.9) 1,000 Ml Mouthwash 15 Ml MM TIDAFTMEAL Aspirin 81 Mg Tab.chew 1 Tab PO DAILY Aspercreme 10% Cream (Trolamine Salicylate/Aloe Vera) 35.4 Gm Cream..g. 35.4 Gm TP TID Acetaminophen 500 Mg Tablet 1 Tab PO QID PRN Xopenex (Levalbuterol Hcl) 0.63 Mg/3 Ml Vial.neb 1 Vial NEB PRN QID PRN Trazodone Hcl 50 Mg Tablet 1 Tab PO QHS Simethicone 40 Mg/0.6 Ml Drops.susp 40 Mg PO PRN Q4HRS PRN Robitussin Cough-Chest Dm Liq (Guaifenesin/Dextromethorphan) 237 Ml Liquid 20 Ml PO PRN Q4HRS PRN Plaquenil (Hydroxychloroquine Sulfate) 200 Mg Tablet 100 Mg PO BID Norvasc (Amlodipine Besylate) 10 Mg Tablet 10 Mg PO DAILY Miralax (Polyethylene Glycol 3350) 17 Gm Powd.pack 1 Packet PO BID Lasix (Furosemide) 20 Mg Tablet 10 Mg PO QMWF Multi Vitamin Daily (Multivitamin) 1 Each Tablet 1 Each PO DAILY Alendronate Sodium 70 Mg Tablet 1 Tab PO WEEKLY Losartan Potassium 100 Mg Tablet 100 Mg PO DAILY Vitals/I & O Vital Sign - Last 24 Hours 11/22/17 11/22/17 11/22/17 11/22/17 12:00 15:00 15:06 15:07 Temp 97.6 97.6 Pulse 83 Resp 17 B/P (MAP) 164/61 (95) Pulse Ox 95 92 O2 Delivery Room Air Room Air Room Air Room Air 11/22/17 11/22/17 11/22/17 11/22/17 16:06 16:31 19:00 19:06 Temp 97.6 97.6 Pulse 83 79 Resp 17 B/P (MAP) 164/61 155/65 (95) Pulse Ox 96 92 96 O2 Delivery Room Air Room Air Room Air 11/22/17 11/22/17 11/22/17 11/22/17 19:06 19:22 20:00 23:00 Temp 97.6 97.6 Pulse 71 Resp 17 B/P (MAP) 129/55 (79) Pulse Ox 96 93 O2 Delivery Room Air Room Air Room Air Room Air 911/23/17 11/23/17 11/23/17 03:00 07:00 08:00 09:10 Temp 97.6 97.5 97.6 97.5 Pulse 63 68 68 Resp 17 18 B/P (MAP) 139/53 (81) 145/56 (85) 145/56 Pulse Ox 95 91 O2 Delivery Room Air Room Air Room Air 11/23/17 11:00 Pulse 62 Resp 18 B/P (MAP) 129/46 (73) Pulse Ox 90 O2 Delivery Room Air Intake and Output 11/22/17 11/22/17 11/23/17 15:00 23:00 07:00 Intake Total 100 ml 50 ml Balance 100 ml 50 ml Nutrition Consultation Dietary Evaluation: Recommendations by RD: Increase Calorie Intake, Protein supplementation Comments: ensure enlive tid pt to benefit from an appetite stimulant Expected Outcomes/Goals: to meet > 75% est nutr needs Malnutrition Findings: Body Fat Depletion (Non Severe: Mild Depletion Weight Status: Underweight DINORA PUGA MD Nov 23, 2017 12:01
[2017-11-23 12:08] LABS: CHOLESTEROL/HDL RATIO 3.4
--- NOTE | 2017-11-23 14:08 | PDOC2 ---
GI CONSULT Reason For Consult: Stricture HPI: HPI: 87 y/o from living facility for progressive dyspnea and concerned for aspiration. DOUBLE CUTTER eval and videoswallow concerning for esophageal dysphagia as below. History from daughter Saray via phone. H/o pneumonia - also noticed choking and coughing w/ eating beginning ~3 months ago. First with crumbs, then meat, then liquids. No regurg/coughing up food. Does not occur every meal, though she is eating less in general. Mentions she feels embarrassed and goes back to her room during meals. H/o GERD treated intermittently for 8-10 years, currently w/ Nexium QD (per summary list - daughter says something like omeprazole). No n/v. Occasional migrating abd pain suspicious for gas. Constipation off and on but currently having liquid stools (C Diff neg). No bleeding. Taking ASA here, also Celebrex, Voltaren, and Plaquenil. No previous EGD. Might have had a colonoscopy >10 years ago. S/p cholecystectomy (stones). No pancreas or liver problems. PMH: PMH: CHF, HTN, SSS, OA, GERD, left greater trochanter fracture, UTI, RA and OA, kyphoplasty, pacemaker, cervical fusion, cholecystectomy FH: Family History: No pertinent hx Social History: Smoke: No ALCOHOL: none Drugs: None ROS: Difficult to obtain, denies pain. Vitals: Vitals: Vital Signs Date Time Temp Pulse Resp B/P (MAP) Pulse Ox O2 Delivery O2 Flow Rate FiO2 11/23/17 11:00 62 18 129/46 (73) 90 Room Air 11/23/17 07:00 97.5 97.5 Labs: Labs: Laboratory Tests Test 11/23/17 04:20 White Blood Count 7.7 x10^3/uL (4.0-11.0) Red Blood Count 4.28 x10^6/uL (3.50-5.40) Hemoglobin 11.7 g/dL (12.0-15.5) Hematocrit 36.0 % (36.0-47.0) Mean Corpuscular Volume 84 fL (79-100) Mean Corpuscular Hemoglobin 28 pg (25-35) Mean Corpuscular Hemoglobin Concent 33 g/dL (31-37) Red Cell Distribution Width 17.5 % (11.5-14.5) Platelet Count 219 x10^3/uL (140-400) Neutrophils (%) (Auto) 76 % (31-73) Lymphocytes (%) (Auto) 12 % (24-48) Monocytes (%) (Auto) 12 % (0-9) Eosinophils (%) (Auto) 1 % (0-3) Basophils (%) (Auto) 1 % (0-3) Neutrophils # (Auto) 5.8 x10^3uL (1.8-7.7) Lymphocytes # (Auto) 0.9 x10^3/uL (1.0-4.8) Monocytes # (Auto) 0.9 x10^3/uL (0.0-1.1) Eosinophils # (Auto) 0.0 x10^3/uL (0.0-0.7) Basophils # (Auto) 0.0 x10^3/uL (0.0-0.2) Sodium Level 141 mmol/L (136-145) Potassium Level 4.4 mmol/L (3.5-5.1) Chloride Level 105 mmol/L (98-107) Carbon Dioxide Level 26 mmol/L (21-32) Anion Gap 10 (6-14) Blood Urea Nitrogen 16 mg/dL (7-20) Creatinine 0.8 mg/dL (0.6-1.0) Estimated GFR (Cockcroft-Gault) 67.8 BUN/Creatinine Ratio 20 (6-20) Glucose Level 81 mg/dL (70-99) Calcium Level 8.4 mg/dL (8.5-10.1) Total Bilirubin 0.4 mg/dL (0.2-1.0) Aspartate Amino Transf (AST/SGOT) 29 U/L (15-37) Alanine Aminotransferase (ALT/SGPT) 10 U/L (14-59) Alkaline Phosphatase 87 U/L (46-116) Total Protein 5.3 g/dL (6.4-8.2) Albumin 3.0 g/dL (3.4-5.0) Albumin/Globulin Ratio 1.3 (1.0-1.7) Triglycerides Level 64 mg/dL (0-150) Cholesterol Level 157 mg/dL (0-200) LDL Cholesterol, Calculated 98 mg/dL (0-100) VLDL Cholesterol, Calculated 13 mg/dL (0-40) Non-HDL Cholesterol Calculated 111 mg/dL (0-129) HDL Cholesterol 46 mg/dL (40-60) Cholesterol/HDL Ratio 3.4 Allergies: Coded Allergies: I S O L A T I O N *CONTACT* (Verified Allergy, Unknown, 07/12/15) mrsa + No Known Medication Allergies (Verified Allergy, Unknown, 07/12/15) Medications: Current Medications Medications (Trade) Dose Ordered Sig/Parker Route PRN Reason Start Time Stop Time Status Last Admin Dose Admin Amlodipine Besylate (Norvasc) 10 mg DAILY16 PO 11/22/17 16:00 11/22/17 16:31 Aspirin (Children'S Aspirin) 81 mg DAILY PO 11/22/17 15:00 11/23/17 09:09 Celecoxib (CeleBREX) 100 mg BID PO 11/22/17 21:00 11/23/17 09:10 Cetirizine HCl (ZyrTEC) 10 mg DAILY PO 11/22/17 15:00 11/23/17 09:10 Fentanyl (Duragesic 25mcg/ Hr Patch) 1 patch Q3DAYS TD 11/22/17 15:00 11/22/17 15:06 Fentanyl (Duragesic 12mcg/ Hr Patch) 1 patch Q3DAYS TD 11/22/17 15:00 11/22/17 15:07 Ferrous Sulfate (Feosol) 325 mg DAILY PO 11/22/17 15:00 11/23/17 09:10 Furosemide (Lasix) 10 mg QMWF@0900 PO 11/23/17 09:00 11/23/17 09:09 Gabapentin (Neurontin) 100 mg QHS PO 11/22/17 21:00 11/22/17 21:33 Sertraline HCl (Zoloft) 50 mg DAILY PO 11/22/17 15:00 11/23/17 09:09 Trazodone HCl (Desyrel) 50 mg QHS PO 11/22/17 21:00 11/22/17 21:33 Hydroxychloroquine Sulfate (Plaquenil) 100 mg BID PO 11/22/17 21:00 11/23/17 09:09 Losartan Potassium (Cozaar) 100 mg DAILY PO 11/23/17 09:00 11/23/17 09:10 Multivitamins (Thera M Plus) 1 tab DAILY PO 11/22/17 15:00 11/23/17 09:09 Saliva Substitute (Biotene Moisturizing Mouth) 2 spray TIDAFTMEAL PO 11/22/17 18:00 11/23/17 13:13 Multi-Ingredient Ointment (Analgesic Drasco) 1 angel TID TP 11/22/17 21:00 11/23/17 13:14 Barium Sulfate (Varibar Thin Liquid Apple) 148 gm 1X ONCE PO 11/23/17 11:00 11/23/17 11:01 DC 11/23/17 11:23 Imaging: Imaging: Videoswallow 11/21/17 IMPRESSION: Esophageal 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 This results in stasis of the ingested materials in the lower cervical esophagus with back flow and intermittent aspiration. Upper endoscopic evaluation is suggested. Initial Videoswallow Study Report Pt provided honey thick via tsp, and thin via tsp and cup as well as <tsp puree. Limited trials of each d/t current findings. Much of bolus was retained in the upper cervical esophagus w/backflow to the pyriforms and spillover into the airway after swallow. Aspiration was SILENT as this time. NO safe consistency was identified. IMPRESSIONS: Esophageal dysphagia w/SILENT aspiration on esophageal backflow which fills the pyriforms and spills into the airway p.swallow. High risk of aspiration on ALL po d/t etiology of dysphagia is esophageal and swallow function is not impacted by changes in consistency. See radiologist report for further details. All images sent to iPACS. RECOMMENDATIONS: NPO meds and nutrition; NOT safe for any po intake at this time , strict NPO indicated. Provide oral care w/oral care kit and Biotene products. Refer to GI for further w/u. CXR 11/21/17 Impression: 1. No acute cardiopulmonary process. PE: GEN: NAD HEENT: Atraumatic, PERRL LUNGS: poor effort but clear anteriorly HEART: RRR ABD: NABS, S/ND/NT EXTREMITY: No edema SKIN: No rashes, no jaundice NEURO/PSYCH: awake and alert, smiling and cooperative, pleasantly confused - I did watch her spit some saliva into a tissue A/P: A/P: Dyspnea Abnormal videoswallow/DOUBLE CUTTER eval - esophageal dysphagia w/ aspiration, imaging suggests stricture, is now NPO GERD - on PPI CRC screen - >10 years S/p cholecystectomy Dementia -- Reviewed w/ Dr. Arrington - possible EGD Sunday pending clinical course over the weekend. Reviewed this possibility w/ Saray and she is agreeable. Will give IV PPI. MAAME OLMEDO Nov 23, 2017 14:08
[2017-11-23 15:00] VITALS: BP 161/57
[2017-11-23] MEDS ORDERED: diphenhydrAMINE 50 MG/ML VIAL IVP PRN (15:15)
[2017-11-23] MEDS: amLODIPine BESYLATE 10 MG TABLET PO SCH (15:27)
[2017-11-23] MEDS: IV NORMAL SALINE 1000ML BAG 1,000 ML IV SCH (15:37)
[2017-11-23] MEDS: ONDANSETRON PF 4 MG/2 ML VIAL. IV PRN (15:45)
[2017-11-23] MEDS ORDERED: FUROSEMIDE 20 MG TABLET PO SCH (16:00)
[2017-11-23] MEDS ORDERED: cloNIDine TTS-1 1 PATCH PATCH.TDWK TD SCH (16:00)
[2017-11-23] MEDS ORDERED: ENALAPRILAT 1.25 MG/ML VIAL. IVP PRN (16:30)
[2017-11-23 19:00] VITALS: BP 143/78
[2017-11-23] MEDS: traZODone 50 MG TABLET. PO SCH (21:00)
[2017-11-23] MEDS: GABAPENTIN 100 MG CAPSULE. PO SCH (21:00)
[2017-11-23 22:49] VITALS: BP 155/56
[2017-11-24 03:00] VITALS: BP 149/68
[2017-11-24] MEDS: IV NORMAL SALINE 1000ML BAG 1,000 ML IV SCH ×2 (03:15→11:15)
[2017-11-24] MEDS: PIPERACILLIN/TAZOBACTAM 2.25 GM in IV NORMAL SALINE 50ML 50 ML IV SCH ×6 (06:00→23:48)
[2017-11-24 07:00] VITALS: BP 154/56
--- NOTE | 2017-11-24 07:44 | PDOC ---
PULMONARY PROGRESS NOTES Subjective sob is better, has cough, no pain Vitals Vital Signs Date Time Temp Pulse Resp B/P (MAP) Pulse Ox O2 Delivery O2 Flow Rate FiO2 11/24/17 03:00 98.1 69 18 149/68 (95) 95 Room Air 98.1 ROS: No Nausea, No Chest Pain, No Abdominal Pain, No Increase Cough HEENT: Other (nc at perrl nose throat clear) Lungs: Crackles Cardiovascular: S1, S2 Abdomen: Soft, Non-tender Neuro Exam: Alert Extremities: No Edema Skin: Warm Labs Laboratory Tests Test 11/22/17 09:30 11/22/17 11:40 11/22/17 13:30 11/23/17 04:20 Nasal Screen MRSA (PCR) Negative (Negative) Clostridium difficile Toxin (PCR) Negative (Negative) Sodium Level 141 mmol/L (136-145) 141 mmol/L (136-145) Potassium Level 3.8 mmol/L (3.5-5.1) 4.4 mmol/L (3.5-5.1) Chloride Level 103 mmol/L (98-107) 105 mmol/L (98-107) Carbon Dioxide Level 29 mmol/L (21-32) 26 mmol/L (21-32) Anion Gap 9 (6-14) 10 (6-14) Blood Urea Nitrogen 18 mg/dL (7-20) 16 mg/dL (7-20) Creatinine 1.0 mg/dL (0.6-1.0) 0.8 mg/dL (0.6-1.0) Estimated GFR (Cockcroft-Gault) 52.4 67.8 Glucose Level 124 mg/dL (70-99) 81 mg/dL (70-99) Calcium Level 9.4 mg/dL (8.5-10.1) 8.4 mg/dL (8.5-10.1) Magnesium Level 2.2 mg/dL (1.8-2.4) Thyroid Stimulating Hormone (TSH) 1.696 uIU/mL (0.358-3.74) White Blood Count 7.7 x10^3/uL (4.0-11.0) Red Blood Count 4.28 x10^6/uL (3.50-5.40) Hemoglobin 11.7 g/dL (12.0-15.5) Hematocrit 36.0 % (36.0-47.0) Mean Corpuscular Volume 84 fL (79-100) Mean Corpuscular Hemoglobin 28 pg (25-35) Mean Corpuscular Hemoglobin Concent 33 g/dL (31-37) Red Cell Distribution Width 17.5 % (11.5-14.5) Platelet Count 219 x10^3/uL (140-400) Neutrophils (%) (Auto) 76 % (31-73) Lymphocytes (%) (Auto) 12 % (24-48) Monocytes (%) (Auto) 12 % (0-9) Eosinophils (%) (Auto) 1 % (0-3) Basophils (%) (Auto) 1 % (0-3) Neutrophils # (Auto) 5.8 x10^3uL (1.8-7.7) Lymphocytes # (Auto) 0.9 x10^3/uL (1.0-4.8) Monocytes # (Auto) 0.9 x10^3/uL (0.0-1.1) Eosinophils # (Auto) 0.0 x10^3/uL (0.0-0.7) Basophils # (Auto) 0.0 x10^3/uL (0.0-0.2) BUN/Creatinine Ratio 20 (6-20) Total Bilirubin 0.4 mg/dL (0.2-1.0) Aspartate Amino Transf (AST/SGOT) 29 U/L (15-37) Alanine Aminotransferase (ALT/SGPT) 10 U/L (14-59) Alkaline Phosphatase 87 U/L (46-116) Total Protein 5.3 g/dL (6.4-8.2) Albumin 3.0 g/dL (3.4-5.0) Albumin/Globulin Ratio 1.3 (1.0-1.7) Triglycerides Level 64 mg/dL (0-150) Cholesterol Level 157 mg/dL (0-200) LDL Cholesterol, Calculated 98 mg/dL (0-100) VLDL Cholesterol, Calculated 13 mg/dL (0-40) Non-HDL Cholesterol Calculated 111 mg/dL (0-129) HDL Cholesterol 46 mg/dL (40-60) Cholesterol/HDL Ratio 3.4 Medications Active Scripts Medications Dose Route/Sig Max Daily Dose Days Date Category FENTANYL 12mcg/hr (Fentanyl) 1 Each Patch.td72 1 Patch TP Q3DAYS 9/13/18 Reported Nexium Capsule (Esomeprazole Magnesium) 40 Mg Capsule.dr 40 Mg PO DAILYAC 11/22/17 Reported Bactrim 400-80 Mg Tablet (Sulfamethoxazole/Trimethoprim) 1 Each Tablet 1 Each PO BID 7 11/22/17 Reported Voltaren (Diclofenac Sodium) 100 Gm Gel..gram. 2 Gm TP PRN Q6HRS PRN 11/22/17 Reported Senna (Sennosides) 8.8 Mg/5 Ml Syrup 8.8 Mg PO PRN DAILY PRN 11/22/17 Reported Zoloft (Sertraline Hcl) 50 Mg Tablet 1 Tab PO DAILY 11/22/17 Reported Zofran (Ondansetron Hcl) 4 Mg Tablet 1 Tab PO PRN Q6HRS PRN 11/22/17 Reported Hydrocodone-Apap 10-325 (Hydrocodone Bit/Acetaminophen) 1 Each Tablet 0.5 Tab PO PRN Q4HRS PRN 11/22/17 Reported Gabapentin 100 Mg Capsule 100 Mg PO QHS 11/22/17 Reported Ferrous Sulfate 325 Mg Tablet 1 Tab PO DAILY 11/22/17 Reported DURAGESIC 25mcg/hr (Fentanyl) 1 Each Patch.td72 1 Patch TP Q3DAYS 11/22/17 Reported Cetirizine Hcl 10 Mg Tablet 1 Tab PO DAILY 11/22/17 Reported Celebrex (Celecoxib) 100 Mg Capsule 1 Cap PO BID 11/22/17 Reported Calcium (Calcium Carbonate) 600 Mg Tablet 600 Mg PO BID 11/22/17 Reported Biotene (Saliva Substitution Combo No.9) 1,000 Ml Mouthwash 15 Ml MM TIDAFTMEAL 11/22/17 Reported Aspirin 81 Mg Tab.chew 1 Tab PO DAILY 11/22/17 Reported Aspercreme 10% Cream (Trolamine Salicylate/Aloe Vera) 35.4 Gm Cream..g. 35.4 Gm TP TID 11/22/17 Reported Acetaminophen 500 Mg Tablet 1 Tab PO QID PRN 11/22/17 Reported Xopenex (Levalbuterol Hcl) 0.63 Mg/3 Ml Vial.neb 1 Vial NEB PRN QID PRN 11/22/17 Reported Trazodone Hcl 50 Mg Tablet 1 Tab PO QHS 11/22/17 Reported Simethicone 40 Mg/0.6 Ml Drops.susp 40 Mg PO PRN Q4HRS PRN 11/22/17 Reported Robitussin Cough-Chest Dm Liq (Guaifenesin/Dextromethorphan) 237 Ml Liquid 20 Ml PO PRN Q4HRS PRN 11/22/17 Reported Plaquenil (Hydroxychloroquine Sulfate) 200 Mg Tablet 100 Mg PO BID 11/22/17 Reported Norvasc (Amlodipine Besylate) 10 Mg Tablet 10 Mg PO DAILY 11/22/17 Reported Miralax (Polyethylene Glycol 3350) 17 Gm Powd.pack 1 Packet PO BID 11/22/17 Reported Lasix (Furosemide) 20 Mg Tablet 10 Mg PO QMWF 11/22/17 Reported Multi Vitamin Daily (Multivitamin) 1 Each Tablet 1 Each PO DAILY 01/07/15 Reported Alendronate Sodium 70 Mg Tablet 1 Tab PO WEEKLY 12/11/14 Reported Losartan Potassium 100 Mg Tablet 100 Mg PO DAILY 11/25/14 Reported Impression . IMPRESSION: 1. Progressive dyspnea. 2. Possible aspiration. 3. Suspect dementia. 4. Arrhythmia, status post pacemaker implantation. 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 This results in stasis of the ingested materials in the lower cervical esophagus with back flow and intermittent aspiration. Upper endoscopic evaluation is suggested. Plan . [facility] consulted, egd on Sunday npo, [facility] ANTIBX 02 titration protonix iv discussed w pt, FLAQUITO Mtz MD Nov 24, 2017 07:44
[2017-11-24] MEDS: CELECOXIB 100 MG CAPSULE. PO SCH ×2 (09:00→21:00)
[2017-11-24] MEDS: CETIRIZINE HCL 10 MG TABLET. PO SCH (09:00)
[2017-11-24] MEDS: ASPIRIN CHEWABLE 81 MG TABLET. PO SCH (09:00)
[2017-11-24] MEDS: MULTIVITAMIN with MINERAL TABLET. PO SCH (09:00)
[2017-11-24] MEDS: POLYETHYLENE GLYCOL 3350 17 GM PACKET. PO SCH ×2 (09:00→21:00)
[2017-11-24] MEDS: SERTRALINE 50 MG TABLET. PO SCH (09:00)
[2017-11-24] MEDS: LOSARTAN POTASSIUM 50 MG TABLET. PO SCH (09:00)
[2017-11-24] MEDS: HYDROXYCHLOROQUINE 200 MG TABLET PO SCH ×2 (09:00→21:00)
[2017-11-24] MEDS: FERROUS SULFATE 325 MG TABLET. PO SCH (09:00)
[2017-11-24 11:00] VITALS: BP 152/62
--- NOTE | 2017-11-24 11:24 | PDOC ---
Subjective: Subjective: No new events. She is dizzy Objective: Vital Signs: Vital Signs Date Time Temp Pulse Resp B/P (MAP) Pulse Ox O2 Delivery O2 Flow Rate FiO2 11/24/17 07:00 96.6 65 18 154/56 (88) 96 Room Air 96.6 Labs: no new labs Physical Exam: Physical Exam: GEN: NAD HEENT: OP clear CV: S1S2 without murmurs, rubs, or gallops RESP: CTAB without wheezing, rhonchi, or crackles ABD: NABS, SNT/ND EXT: No edema NEURO: dizzy Assessment & Plan: Assessment : A/P: A/P: Dyspnea Abnormal videoswallow/[employer] eval - esophageal dysphagia w/ aspiration, imaging suggests stricture, is now NPO GERD - on PPI CRC screen - >10 years S/p cholecystectomy Dementia Plan: EGD Sunday Favor check labs and defer dizziness eval to primary SHEFALI ANGELES MD Nov 24, 2017 11:24
--- NOTE | 2017-11-24 11:27 | PDOC ---
PROGRESS NOTES Chief Complaint Chief Complaint IMPRESSION: 1. Progressive dyspnea. 2. Possible aspiration. 3. Suspect dementia. 4. Arrhythmia, status post pacemaker implantation. 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 Vitals Vitals Vital Signs Date Time Temp Pulse Resp B/P (MAP) Pulse Ox O2 Delivery O2 Flow Rate FiO2 11/24/17 07:00 96.6 65 18 154/56 (88) 96 Room Air 96.6 Physical Exam Physical Exam she says she is doing well, no complaints, no nausea or vmoiting, no fever or chills General: Alert, Oriented X3, Cooperative, No acute distress Heart: Regular rate (Paced), Normal S1, Other (3/6 systolic murmur to apex) Lungs: Crackles Abdomen: Soft, No tenderness Extremities: No clubbing, No cyanosis, No edema Skin: No breakdown, No significant lesion Review of Systems Review of Systems A 14 point ROS was completed with the following noted as positive: Other systems reviewed and negative. \CONSTITUTIONAL: No fever or chills EYES: No recent changes SKIN: No rash or itching CARDIOVASCULAR: No chest pain, syncope, palpitations, or edema RESPIRATORY: No SOB or cough GASTROINTESTINAL: No nausea, vomiting or abdominal pain NEUROLOGICAL: No headaches or weakness ENDOCRINE: No cold or heat intolerance GENITOURINARY: No urgency or frequency of urination MUSCULOSKELETAL: No back pain or joint pain LYMPHATICS: No enlarged lymph nodes PSYCHIATRIC: No anxiety or depression Comment Review of Relevant I have reviewed the following items hilario (where applicable) has been applied. Labs Laboratory Tests Test 11/22/17 11:40 11/22/17 13:30 11/23/17 04:20 Clostridium difficile Toxin (PCR) Negative (Negative) Sodium Level 141 mmol/L (136-145) 141 mmol/L (136-145) Potassium Level 3.8 mmol/L (3.5-5.1) 4.4 mmol/L (3.5-5.1) Chloride Level 103 mmol/L (98-107) 105 mmol/L (98-107) Carbon Dioxide Level 29 mmol/L (21-32) 26 mmol/L (21-32) Anion Gap 9 (6-14) 10 (6-14) Blood Urea Nitrogen 18 mg/dL (7-20) 16 mg/dL (7-20) Creatinine 1.0 mg/dL (0.6-1.0) 0.8 mg/dL (0.6-1.0) Estimated GFR (Cockcroft-Gault) 52.4 67.8 Glucose Level 124 mg/dL (70-99) 81 mg/dL (70-99) Calcium Level 9.4 mg/dL (8.5-10.1) 8.4 mg/dL (8.5-10.1) Magnesium Level 2.2 mg/dL (1.8-2.4) Thyroid Stimulating Hormone (TSH) 1.696 uIU/mL (0.358-3.74) White Blood Count 7.7 x10^3/uL (4.0-11.0) Red Blood Count 4.28 x10^6/uL (3.50-5.40) Hemoglobin 11.7 g/dL (12.0-15.5) Hematocrit 36.0 % (36.0-47.0) Mean Corpuscular Volume 84 fL (79-100) Mean Corpuscular Hemoglobin 28 pg (25-35) Mean Corpuscular Hemoglobin Concent 33 g/dL (31-37) Red Cell Distribution Width 17.5 % (11.5-14.5) Platelet Count 219 x10^3/uL (140-400) Neutrophils (%) (Auto) 76 % (31-73) Lymphocytes (%) (Auto) 12 % (24-48) Monocytes (%) (Auto) 12 % (0-9) Eosinophils (%) (Auto) 1 % (0-3) Basophils (%) (Auto) 1 % (0-3) Neutrophils # (Auto) 5.8 x10^3uL (1.8-7.7) Lymphocytes # (Auto) 0.9 x10^3/uL (1.0-4.8) Monocytes # (Auto) 0.9 x10^3/uL (0.0-1.1) Eosinophils # (Auto) 0.0 x10^3/uL (0.0-0.7) Basophils # (Auto) 0.0 x10^3/uL (0.0-0.2) BUN/Creatinine Ratio 20 (6-20) Total Bilirubin 0.4 mg/dL (0.2-1.0) Aspartate Amino Transf (AST/SGOT) 29 U/L (15-37) Alanine Aminotransferase (ALT/SGPT) 10 U/L (14-59) Alkaline Phosphatase 87 U/L (46-116) Total Protein 5.3 g/dL (6.4-8.2) Albumin 3.0 g/dL (3.4-5.0) Albumin/Globulin Ratio 1.3 (1.0-1.7) Triglycerides Level 64 mg/dL (0-150) Cholesterol Level 157 mg/dL (0-200) LDL Cholesterol, Calculated 98 mg/dL (0-100) VLDL Cholesterol, Calculated 13 mg/dL (0-40) Non-HDL Cholesterol Calculated 111 mg/dL (0-129) HDL Cholesterol 46 mg/dL (40-60) Cholesterol/HDL Ratio 3.4 Microbiology 11/21/17 Blood Culture - Preliminary, Resulted NO GROWTH AFTER 2 DAYS Medications Current Medications Furosemide (Lasix) 20 mg 1X ONCE IVP Last administered on 11/21/17at 18:03; Start 11/21/17 at 17:45; Stop 11/21/17 at 17:46; Status DC Ondansetron HCl (Zofran) 4 mg PRN Q8HRS PRN IV NAUSEA/VOMITING Last administered on 11/22/17at 15:05; Start 11/21/17 at 17:45; Stop 11/22/17 at 17:44 ; Status DC Acetaminophen (Tylenol) 650 mg PRN Q4HRS PRN PO FEVER Last administered on 11/22at 08:46; Start 11/21/17 at 17:45; Stop 11/22/17 at 14:18; Status DC Albuterol/ Ipratropium (Duoneb) 3 ml RTQID NEB Last administered on 11/22/17at 15:19; Start 11/21/17 at 20:00; Stop 11/22/17 at 19:59; Status DC Acetaminophen (Tylenol) 650 mg PRN Q6HRS PRN PO MILD PAIN; Start 11/22/17 at 00 :45; Status Cancel Calcium Carbonate/ Glycine (Oscal) 500 mg DAILY PO ; Start 11/22/17 at 09:00; Status Cancel Celecoxib (CeleBREX) 100 mg BID PO ; Start 11/22/17 at 09:00; Status Cancel Docusate Sodium (Colace) 100 mg PRN BID PRN PO CONSTIPATION 1ST CHOICE; Start 11/22/17 at 00:45; Status Cancel Fentanyl (Duragesic 25mcg/ Hr Patch) 1 patch Q72H TD ; Start 11/22/17 at 00:45; Status UNV Aspirin (Ecotrin) 81 mg DAILYWBKFT PO ; Start 11/22/17 at 08:00; Status Cancel Trimethoprim/ Sulfamethoxazole (Bactrim Ds) 0.5 tab BID PO ; Start 11/22/17 at 09:00; Stop 11/24/17 at 08:59; Status Cancel Cetirizine HCl (ZyrTEC) 10 mg DAILY PO ; Start 11/22/17 at 09:00; Status Cancel Ferrous Sulfate (Feosol) 325 mg DAILYWBKFT PO ; Start 11/22/17 at 08:00; Status Cancel Gabapentin (Neurontin) 100 mg HS PO ; Start 11/22/17 at 21:00; Status Cancel Acetaminophen/ Hydrocodone Bitart (Lortab 10/325) 0.5 tab PRN Q4HRS PRN PO SEVERE PAIN; Start 11/22/17 at 00:45; Status Cancel Furosemide (Lasix) 10 mg QMWF PO ; Start 11/23/17 at 16:00; Status Cancel Losartan Potassium (Cozaar) 100 mg DAILY PO ; Start 11/22/17 at 09:00; Status Cancel Polyethylene Glycol (miraLAX PACKET) 17 gm BID PO ; Start 11/22/17 at 09:00; Status Cancel Amlodipine Besylate (Norvasc) 10 mg DAILY PO ; Start 11/22/17 at 09:00; Status Cancel Hydroxychloroquine Sulfate (Plaquenil) 100 mg BID PO ; Start 11/22/17 at 09:00; Status Cancel Guaifenesin (Robitussin Dm) 5 ml PRN Q4HRS PRN PO COUGH 1ST CHOICE; Start 11/22 at 00:45; Status Cancel Sennosides (Senna) 8.6 mg PRN BID PRN PO CONSTIPATION 2ND CHOICE; Start at 00:45; Status Cancel Simethicone (Gas-X) 80 mg PRN Q4HRS PRN PO INDIGESTION; Start 11/22/17 at 00:45 ; Status Cancel Trazodone HCl (Desyrel) 50 mg QHS PO ; Start 11/22/17 at 21:00; Status Cancel Diclofenac Sodium (Voltaren) 1 angel PRN Q6HRS PRN TP TOPICAL PAIN; Start at 00:45; Status Cancel Sertraline HCl (Zoloft) 50 mg DAILY PO ; Start 11/22/17 at 09:00; Status Cancel Lactobacillus Rhamnosus (Culturelle) 1 cap BID PO ; Start 11/22/17 at 09:00; Status Cancel Piperacillin Sod/ Tazobactam Sod (Zosyn Per Pharmacy) 1 each PRN DAILY PRN MC SEE COMMENTS; Start 11/22/17 at 13:30 Piperacillin Sod/ Tazobactam Sod 2.25 gm/Sodium Chloride 50 ml @ 100 mls/hr Q6HRS IV Last administered on 11/24/17at 00:00; Start 11/22/17 at 13:30 Acetaminophen (Tylenol) 500 mg QID PRN PO MILD PAIN; Start 11/22/17 at 14:00 Amlodipine Besylate (Norvasc) 10 mg DAILY16 PO Last administered on 11/22/17at 16:31; Start 11/22/17 at 16:00 Aspirin (Children'S Aspirin) 81 mg DAILY PO Last administered on 11/23/17at 09: 09; Start 11/22/17 at 15:00 Celecoxib (CeleBREX) 100 mg BID PO Last administered on 11/23/17at 09:10; Start 11/22/17 at 21:00 Cetirizine HCl (ZyrTEC) 10 mg DAILY PO Last administered on 11/23/17at 09:10; Start 11/22/17 at 15:00 Diclofenac Sodium (Voltaren) 2 angel PRN Q6HRS PRN TP PAIN; Start 11/22/17 at 14: 00 Fentanyl (Duragesic 25mcg/ Hr Patch) 1 patch Q3DAYS TD Last administered on 15:06; Start 11/22/17 at 15:00 Fentanyl (Duragesic 12mcg/ Hr Patch) 1 patch Q3DAYS TD Last administered on 15:07; Start 11/22/17 at 15:00 Ferrous Sulfate (Feosol) 325 mg DAILY PO Last administered on 11/23/17 09:10; Start 11/22/17 at 15:00 Furosemide (Lasix) 10 mg QMWF@0900 PO Last administered on 11/23/17 09:09; Start 11/23/17 at 09:00 Gabapentin (Neurontin) 100 mg QHS PO Last administered on 11/22/17 21:33; Start 11/22/17 at 21:00 Sertraline HCl (Zoloft) 50 mg DAILY PO Last administered on 11/23/17 09:09; Start 11/22/17 at 15:00 Simethicone (Gas-X) 40 mg PRN Q4HRS PRN PO GAS / BLOATING; Start 11/22/17 at 14 :15 Trazodone HCl (Desyrel) 50 mg QHS PO Last administered on 11/22/17 21:33; Start 11/22/17 at 21:00 Guaifenesin (Robitussin Dm) 10 ml PRN Q4HRS PRN PO COUGH; Start 11/22/17 at 14: 30 Acetaminophen/ Hydrocodone Bitart (Lortab 10/325) 0.5 tab PRN Q4HRS PRN PO MOD TO SEVERE PAIN; Start 11/22/17 at 14:30 Hydroxychloroquine Sulfate (Plaquenil) 100 mg BID PO Last administered on 09:09; Start 11/22/17 at 21:00 Albuterol Sulfate (Ventolin Neb Soln) 2.5 mg PRN Q6HRS PRN NEB SHORTNESS OF BREATH; Start 11/22/17 at 14:30 Losartan Potassium (Cozaar) 100 mg DAILY PO Last administered on 11/23/17 09: 10; Start 11/23/17 at 09:00 Multivitamins (Thera M Plus) 1 tab DAILY PO Last administered on 11/23/17 09: 09; Start 11/22/17 at 15:00 Ondansetron HCl (Zofran Odt) 4 mg PRN Q8HRS PRN PO NAUSEA/VOMITING; Start 11/22 at 14:30 Polyethylene Glycol (miraLAX PACKET) 17 gm BID PO ; Start 11/22/17 at 21:00 Saliva Substitute (Biotene Moisturizing Mouth) 2 spray TIDAFTMEAL PO Last administered on 11/23/17at 17:19; Start 11/22/17 at 18:00 Sennosides (Senna) 8.6 mg PRN DAILY PRN PO CONSTIPATION; Start 11/22/17 at 14: 30 Multi-Ingredient Ointment (Analgesic [place]) 1 angel TID TP Last administered on at 13:14; Start 11/22/17 at 21:00 Alprazolam (Xanax) 0.25 mg PRN Q8HRS PRN PO ANXIETY / AGITATION; Start at 14:00 Barium Sulfate (Varibar Thin Liquid [place]) 148 gm 1X ONCE PO Last administered on 11/23/17at 11:23; Start 11/23/17 at 11:00; Stop 11/23/17 at 11:01 ; Status DC Pantoprazole Sodium (PROTONIX VIAL for IV PUSH) 40 mg DAILYAC IVP ; Start at 07:30 Sodium Chloride 1,000 ml @ 100 mls/hr Q10H IV Last administered on 11/24/17at 03:15; Start 11/23/17 at 15:15 Diphenhydramine HCl (Benadryl) 25 mg Q4HRS PRN IVP ALLERGIES; Start 11/23/17 at 15:15 Ondansetron HCl (Zofran) 4 mg PRN Q6HRS PRN IV NAUSEA/VOMITING Last administered on 11/23/17at 15:45; Start 11/23/17 at 15:15 Clonidine HCl (Catapres Tts-1) 1 patch WEEKLY TD Last administered on at 15:37; Start 11/23/17 at 16:00 Enalaprilat (Vasotec Inj) 1.25 mg PRN Q6HRS PRN IVP HYPERTENSION, SEE COMMENTS ; Start 11/23/17 at 16:30 Active Scripts Active Reported FENTANYL 12mcg/hr (Fentanyl) 1 Each Patch.td72 1 Patch TP Q3DAYS Nexium Capsule (Esomeprazole Magnesium) 40 Mg Capsule.dr 40 Mg PO DAILYAC Bactrim 400-80 Mg Tablet (Sulfamethoxazole/Trimethoprim) 1 Each Tablet 1 Each PO BID 7 Days Voltaren (Diclofenac Sodium) 100 Gm Gel..gram. 2 Gm TP PRN Q6HRS PRN Senna (Sennosides) 8.8 Mg/5 Ml Syrup 8.8 Mg PO PRN DAILY PRN Zoloft (Sertraline Hcl) 50 Mg Tablet 1 Tab PO DAILY Zofran (Ondansetron Hcl) 4 Mg Tablet 1 Tab PO PRN Q6HRS PRN Hydrocodone-Apap 10-325 (Hydrocodone Bit/Acetaminophen) 1 Each Tablet 0.5 Tab PO PRN Q4HRS PRN Gabapentin 100 Mg Capsule 100 Mg PO QHS Ferrous Sulfate 325 Mg Tablet 1 Tab PO DAILY DURAGESIC 25mcg/hr (Fentanyl) 1 Each Patch.td72 1 Patch TP Q3DAYS Cetirizine Hcl 10 Mg Tablet 1 Tab PO DAILY Celebrex (Celecoxib) 100 Mg Capsule 1 Cap PO BID Calcium (Calcium Carbonate) 600 Mg Tablet 600 Mg PO BID Biotene (Saliva Substitution Combo No.9) 1,000 Ml Mouthwash 15 Ml MM TIDAFTMEAL Aspirin 81 Mg Tab.chew 1 Tab PO DAILY Aspercreme 10% Cream (Trolamine Salicylate/Aloe Vera) 35.4 Gm Cream..g. 35.4 Gm TP TID Acetaminophen 500 Mg Tablet 1 Tab PO QID PRN Xopenex (Levalbuterol Hcl) 0.63 Mg/3 Ml Vial.neb 1 Vial NEB PRN QID PRN Trazodone Hcl 50 Mg Tablet 1 Tab PO QHS Simethicone 40 Mg/0.6 Ml Drops.susp 40 Mg PO PRN Q4HRS PRN Robitussin Cough-Chest Dm Liq (Guaifenesin/Dextromethorphan) 237 Ml Liquid 20 Ml PO PRN Q4HRS PRN Plaquenil (Hydroxychloroquine Sulfate) 200 Mg Tablet 100 Mg PO BID Norvasc (Amlodipine Besylate) 10 Mg Tablet 10 Mg PO DAILY Miralax (Polyethylene Glycol 3350) 17 Gm Powd.pack 1 Packet PO BID Lasix (Furosemide) 20 Mg Tablet 10 Mg PO QMWF Multi Vitamin Daily (Multivitamin) 1 Each Tablet 1 Each PO DAILY Alendronate Sodium 70 Mg Tablet 1 Tab PO WEEKLY Losartan Potassium 100 Mg Tablet 100 Mg PO DAILY Vitals/I & O Vital Sign - Last 24 Hours 11/23/17 11/23/17 11/23/17 11/23/17 15:00 19:00 20:22 22:49 Temp 98.4 97.5 98.4 97.5 Pulse 73 67 66 Resp 18 18 18 B/P (MAP) 161/57 (91) 143/78 (99) 155/56 (89) Pulse Ox 90 91 94 O2 Delivery Room Air Room Air Room Air Room Air 11/24/17 11/24/17 03:00 07:00 Temp 98.1 96.6 98.1 96.6 Pulse 69 65 Resp 18 18 B/P (MAP) 149/68 (95) 154/56 (88) Pulse Ox 95 96 O2 Delivery Room Air Room Air Intake and Output 11/23/17 11/23/17 11/24/17 15:00 23:00 07:00 Intake Total 50 ml 170 ml 1070 ml Output Total 30 ml Balance 50 ml 140 ml 1070 ml Nutrition Consultation Dietary Evaluation: Recommendations by RD: Increase Calorie Intake, Protein supplementation Comments: ensure enlive tid pt to benefit from an appetite stimulant Expected Outcomes/Goals: to meet > 75% est nutr needs Malnutrition Findings: Body Fat Depletion (Non Severe: Mild Depletion Weight Status: Underweight ARIELLA CASIANO MD Nov 24, 2017 11:27
[2017-11-24] MEDS: ONDANSETRON PF 4 MG/2 ML VIAL. IV PRN (12:51)
[2017-11-24] MEDS: PANTOPRAZOLE IV PUSH 40 MG VIAL. IVP SCH (12:51)
[2017-11-24] MEDS: SALIVA STIMULANT AGENT 44ML SPRAY BOTTLE. PO SCH ×3 (12:53→18:23)
[2017-11-24] MEDS ORDERED: MORPHINE SULFATE 2 MG/ML VIAL. IV PRN (13:30)
[2017-11-24 15:00] VITALS: BP 154/59
[2017-11-24] MEDS: amLODIPine BESYLATE 10 MG TABLET PO SCH (16:00)
[2017-11-24] MEDS: METHYL SALICYLATE/MENTHOL TOPICAL OINTMENT 29GM TUBE. TP SCH ×3 (16:03→21:00)
[2017-11-24] MEDS: AMINO AC 3%/ELECTROLYTE/GLYCER 1,000 ML IV SCH (16:04)
[2017-11-24 19:00] VITALS: BP 183/87
[2017-11-24] MEDS: GABAPENTIN 100 MG CAPSULE. PO SCH (21:00)
[2017-11-24] MEDS: traZODone 50 MG TABLET. PO SCH (21:00)
[2017-11-24 23:00] VITALS: BP 98/62
[2017-11-25] MEDS: AMINO AC 3%/ELECTROLYTE/GLYCER 1,000 ML IV SCH ×2 (02:00→15:07)
[2017-11-25 03:00] VITALS: BP 164/83
[2017-11-25] MEDS: PIPERACILLIN/TAZOBACTAM 2.25 GM in IV NORMAL SALINE 50ML 50 ML IV SCH ×3 (05:32→17:56)
[2017-11-25 07:00] VITALS: BP 170/54
--- NOTE | 2017-11-25 07:06 | PDOC ---
PULMONARY PROGRESS NOTES Subjective feeling better, sob is better, has cough, no pain Vitals Vital Signs Date Time Temp Pulse Resp B/P (MAP) Pulse Ox O2 Delivery O2 Flow Rate FiO2 11/25/17 03:00 97.9 64 20 164/83 (110) 93 Room Air 97.9 ROS: No Nausea, No Chest Pain, No Abdominal Pain, No Increase Cough General: Alert, Oriented X4 HEENT: Other (nc at perrl nose throat clear) Lungs: Crackles Cardiovascular: S1, S2 Abdomen: Soft, Non-tender Neuro Exam: Alert Extremities: No Edema Skin: Warm Medications Active Scripts Medications Dose Route/Sig Max Daily Dose Days Date Category FENTANYL 12mcg/hr (Fentanyl) 1 Each Patch.td72 1 Patch TP Q3DAYS 11/22/17 Reported Nexium Capsule (Esomeprazole Magnesium) 40 Mg Capsule.dr 40 Mg PO DAILYAC 11/22/17 Reported Bactrim 400-80 Mg Tablet (Sulfamethoxazole/Trimethoprim) 1 Each Tablet 1 Each PO BID 7 11/22/17 Reported Voltaren (Diclofenac Sodium) 100 Gm Gel..gram. 2 Gm TP PRN Q6HRS PRN 11/22/17 Reported Senna (Sennosides) 8.8 Mg/5 Ml Syrup 8.8 Mg PO PRN DAILY PRN 11/22/17 Reported Zoloft (Sertraline Hcl) 50 Mg Tablet 1 Tab PO DAILY 11/22/17 Reported Zofran (Ondansetron Hcl) 4 Mg Tablet 1 Tab PO PRN Q6HRS PRN 11/22/17 Reported Hydrocodone-Apap 10-325 (Hydrocodone Bit/Acetaminophen) 1 Each Tablet 0.5 Tab PO PRN Q4HRS PRN 11/22/17 Reported Gabapentin 100 Mg Capsule 100 Mg PO QHS 11/22/17 Reported Ferrous Sulfate 325 Mg Tablet 1 Tab PO DAILY 11/22/17 Reported DURAGESIC 25mcg/hr (Fentanyl) 1 Each Patch.td72 1 Patch TP Q3DAYS 11/22/17 Reported Cetirizine Hcl 10 Mg Tablet 1 Tab PO DAILY 11/22/17 Reported Celebrex (Celecoxib) 100 Mg Capsule 1 Cap PO BID 11/22/17 Reported Calcium (Calcium Carbonate) 600 Mg Tablet 600 Mg PO BID 11/22/17 Reported Biotene (Saliva Substitution Combo No.9) 1,000 Ml Mouthwash 15 Ml MM TIDAFTMEAL 11/22/17 Reported Aspirin 81 Mg Tab.chew 1 Tab PO DAILY 11/22/17 Reported Aspercreme 10% Cream (Trolamine Salicylate/Aloe Vera) 35.4 Gm Cream..g. 35.4 Gm TP TID 11/22/17 Reported Acetaminophen 500 Mg Tablet 1 Tab PO QID PRN 11/22/17 Reported Xopenex (Levalbuterol Hcl) 0.63 Mg/3 Ml Vial.neb 1 Vial NEB PRN QID PRN 11/22/17 Reported Trazodone Hcl 50 Mg Tablet 1 Tab PO QHS 11/22/17 Reported Simethicone 40 Mg/0.6 Ml Drops.susp 40 Mg PO PRN Q4HRS PRN 11/22/17 Reported Robitussin Cough-Chest Dm Liq (Guaifenesin/Dextromethorphan) 237 Ml Liquid 20 Ml PO PRN Q4HRS PRN 11/22/17 Reported Plaquenil (Hydroxychloroquine Sulfate) 200 Mg Tablet 100 Mg PO BID 11/22/17 Reported Norvasc (Amlodipine Besylate) 10 Mg Tablet 10 Mg PO DAILY 11/22/17 Reported Miralax (Polyethylene Glycol 3350) 17 Gm Powd.pack 1 Packet PO BID 11/22/17 Reported Lasix (Furosemide) 20 Mg Tablet 10 Mg PO QMWF 11/22/17 Reported Multi Vitamin Daily (Multivitamin) 1 Each Tablet 1 Each PO DAILY 01/07/15 Reported Alendronate Sodium 70 Mg Tablet 1 Tab PO WEEKLY 12/11/14 Reported Losartan Potassium 100 Mg Tablet 100 Mg PO DAILY 11/25/14 Reported Impression . IMPRESSION: 1. Progressive dyspnea. 2. Possible aspiration. 3. Suspect dementia. 4. Arrhythmia, status post pacemaker implantation. 5. 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 This results in stasis of the ingested materials in the lower cervical esophagus with back flow and intermittent aspiration. Upper endoscopic evaluation is suggested. Plan . elevate hob GI consulted, egd on Sunday npo, cont ANTIBX 02 titration protonix iv discussed w pt, rn FLAQUITO DELGADO MD Nov 25, 2017 07:06
[2017-11-25] MEDS ORDERED: LABETALOL 20 MG/4 ML DISP.SYRIN. IVP PRN (08:45)
[2017-11-25] MEDS ORDERED: LABETALOL 20 MG/4 ML DISP.SYRIN. IVP ONE (09:00)
[2017-11-25] MEDS: CETIRIZINE HCL 10 MG TABLET. PO SCH (09:00)
[2017-11-25] MEDS: CELECOXIB 100 MG CAPSULE. PO SCH ×2 (09:00→21:00)
[2017-11-25] MEDS: ASPIRIN CHEWABLE 81 MG TABLET. PO SCH (09:00)
[2017-11-25] MEDS: HYDROXYCHLOROQUINE 200 MG TABLET PO SCH ×2 (09:00→21:00)
[2017-11-25] MEDS: MULTIVITAMIN with MINERAL TABLET. PO SCH (09:00)
[2017-11-25] MEDS: POLYETHYLENE GLYCOL 3350 17 GM PACKET. PO SCH ×2 (09:00→21:00)
[2017-11-25] MEDS: FERROUS SULFATE 325 MG TABLET. PO SCH (09:00)
[2017-11-25] MEDS: SERTRALINE 50 MG TABLET. PO SCH (09:00)
[2017-11-25] MEDS: LOSARTAN POTASSIUM 50 MG TABLET. PO SCH (09:00)
[2017-11-25] MEDS: SALIVA STIMULANT AGENT 44ML SPRAY BOTTLE. PO SCH ×3 (09:30→17:56)
[2017-11-25] MEDS: METHYL SALICYLATE/MENTHOL TOPICAL OINTMENT 29GM TUBE. TP SCH ×3 (09:30→17:56)
[2017-11-25] MEDS: PANTOPRAZOLE IV PUSH 40 MG VIAL. IVP SCH (09:31)
[2017-11-25 10:02] LABS: BASO # 0.1 x10^3/uL (0.0-0.2); BASO % 1 % (0-3); EOS % 0 % (0-3); HEMATOCRIT 34.6 % (36.0-47.0); HEMOGLOBIN 11.2 g/dL (12.0-15.5); LYMPH # 0.8 x10^3/uL (1.0-4.8); LYMPH % 9 % (24-48); MEAN CORPUSCULAR HEMOGLOBIN 27 pg (25-35); MEAN CORPUSCULAR HGB CONC 32 g/dL (31-37); MEAN CORPUSCULAR VOLUME 85 fL (79-100); MONO # 0.5 x10^3/uL (0.0-1.1); MONO % 6 % (0-9); NEUT # 7.3 x10^3uL (1.8-7.7); NEUT % 84 % (31-73); PLATELET COUNT 250 x10^3/uL (140-400); RED BLOOD COUNT 4.09 x10^6/uL (3.50-5.40); RED CELL DISTRIBUTION WIDTH 16.6 % (11.5-14.5); WHITE BLOOD COUNT 8.7 x10^3/uL (4.0-11.0)
[2017-11-25 10:19] LABS: ALBUMIN 2.7 g/dL (3.4-5.0); CALCIUM 8.2 mg/dL (8.5-10.1); CREATININE 0.6 mg/dL (0.6-1.0); GFR 94.6; POTASSIUM 4.5 mmol/L (3.5-5.1); TOTAL BILIRUBIN 0.4 mg/dL (0.2-1.0); TOTAL PROTEIN 5.4 g/dL (6.4-8.2)
[2017-11-25 11:00] VITALS: BP 164/66
[2017-11-25] MEDS: fentaNYL 25MCG/HR PATCH 1 PATCH PATCH.TD72 TD SCH (11:09)
[2017-11-25] MEDS: fentaNYL 12MCG/HR PATCH 1 PATCH PATCH.TD72 TD SCH (11:09)
--- NOTE | 2017-11-25 11:18 | PDOC ---
PROGRESS NOTES Chief Complaint Chief Complaint IMPRESSION: 1. Progressive dyspnea. 2. Possible aspiration. 3. Suspect dementia. 4. Arrhythmia, status post pacemaker implantation. 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 Vitals Vitals Vital Signs Date Time Temp Pulse Resp B/P (MAP) Pulse Ox O2 Delivery O2 Flow Rate FiO2 11/25/17 11:09 65 164/66 11/25/17 11:09 Room Air 11/25/17 07:00 97.9 18 93 97.9 Physical Exam Physical Exam she says she is doing well, no complaints, no nausea or vmoiting, no fever or chills General: Alert, Oriented X3, Cooperative, No acute distress Heart: Regular rate (Paced), Normal S1, Other (3/6 systolic murmur to apex) Lungs: Crackles Abdomen: Soft, No tenderness Extremities: No clubbing, No cyanosis, No edema Skin: No breakdown, No significant lesion Labs LABS Laboratory Tests Test 11/25/17 09:55 White Blood Count 8.7 x10^3/uL (4.0-11.0) Red Blood Count 4.09 x10^6/uL (3.50-5.40) Hemoglobin 11.2 g/dL (12.0-15.5) Hematocrit 34.6 % (36.0-47.0) Mean Corpuscular Volume 85 fL (79-100) Mean Corpuscular Hemoglobin 27 pg (25-35) Mean Corpuscular Hemoglobin Concent 32 g/dL (31-37) Red Cell Distribution Width 16.6 % (11.5-14.5) Platelet Count 250 x10^3/uL (140-400) Neutrophils (%) (Auto) 84 % (31-73) Lymphocytes (%) (Auto) 9 % (24-48) Monocytes (%) (Auto) 6 % (0-9) Eosinophils (%) (Auto) 0 % (0-3) Basophils (%) (Auto) 1 % (0-3) Neutrophils # (Auto) 7.3 x10^3uL (1.8-7.7) Lymphocytes # (Auto) 0.8 x10^3/uL (1.0-4.8) Monocytes # (Auto) 0.5 x10^3/uL (0.0-1.1) Eosinophils # (Auto) 0.0 x10^3/uL (0.0-0.7) Basophils # (Auto) 0.1 x10^3/uL (0.0-0.2) Sodium Level 134 mmol/L (136-145) Potassium Level 4.5 mmol/L (3.5-5.1) Chloride Level 102 mmol/L (98-107) Carbon Dioxide Level 24 mmol/L (21-32) Anion Gap 8 (6-14) Blood Urea Nitrogen 16 mg/dL (7-20) Creatinine 0.6 mg/dL (0.6-1.0) Estimated GFR (Cockcroft-Gault) 94.6 BUN/Creatinine Ratio 27 (6-20) Glucose Level 90 mg/dL (70-99) Calcium Level 8.2 mg/dL (8.5-10.1) Total Bilirubin 0.4 mg/dL (0.2-1.0) Aspartate Amino Transf (AST/SGOT) 30 U/L (15-37) Alanine Aminotransferase (ALT/SGPT) 20 U/L (14-59) Alkaline Phosphatase 70 U/L (46-116) Total Protein 5.4 g/dL (6.4-8.2) Albumin 2.7 g/dL (3.4-5.0) Albumin/Globulin Ratio 1.0 (1.0-1.7) Review of Systems Review of Systems A 14 point ROS was completed with the following noted as positive: Other systems reviewed and negative. \CONSTITUTIONAL: No fever or chills EYES: No recent changes SKIN: No rash or itching CARDIOVASCULAR: No chest pain, syncope, palpitations, or edema RESPIRATORY: No SOB or cough GASTROINTESTINAL: No nausea, vomiting or abdominal pain NEUROLOGICAL: No headaches or weakness ENDOCRINE: No cold or heat intolerance GENITOURINARY: No urgency or frequency of urination MUSCULOSKELETAL: No back pain or joint pain LYMPHATICS: No enlarged lymph nodes PSYCHIATRIC: No anxiety or depression Comment Review of Relevant I have reviewed the following items hilario (where applicable) has been applied. Labs Laboratory Tests Test 11/25/17 09:55 White Blood Count 8.7 x10^3/uL (4.0-11.0) Red Blood Count 4.09 x10^6/uL (3.50-5.40) Hemoglobin 11.2 g/dL (12.0-15.5) Hematocrit 34.6 % (36.0-47.0) Mean Corpuscular Volume 85 fL (79-100) Mean Corpuscular Hemoglobin 27 pg (25-35) Mean Corpuscular Hemoglobin Concent 32 g/dL (31-37) Red Cell Distribution Width 16.6 % (11.5-14.5) Platelet Count 250 x10^3/uL (140-400) Neutrophils (%) (Auto) 84 % (31-73) Lymphocytes (%) (Auto) 9 % (24-48) Monocytes (%) (Auto) 6 % (0-9) Eosinophils (%) (Auto) 0 % (0-3) Basophils (%) (Auto) 1 % (0-3) Neutrophils # (Auto) 7.3 x10^3uL (1.8-7.7) Lymphocytes # (Auto) 0.8 x10^3/uL (1.0-4.8) Monocytes # (Auto) 0.5 x10^3/uL (0.0-1.1) Eosinophils # (Auto) 0.0 x10^3/uL (0.0-0.7) Basophils # (Auto) 0.1 x10^3/uL (0.0-0.2) Sodium Level 134 mmol/L (136-145) Potassium Level 4.5 mmol/L (3.5-5.1) Chloride Level 102 mmol/L (98-107) Carbon Dioxide Level 24 mmol/L (21-32) Anion Gap 8 (6-14) Blood Urea Nitrogen 16 mg/dL (7-20) Creatinine 0.6 mg/dL (0.6-1.0) Estimated GFR (Cockcroft-Gault) 94.6 BUN/Creatinine Ratio 27 (6-20) Glucose Level 90 mg/dL (70-99) Calcium Level 8.2 mg/dL (8.5-10.1) Total Bilirubin 0.4 mg/dL (0.2-1.0) Aspartate Amino Transf (AST/SGOT) 30 U/L (15-37) Alanine Aminotransferase (ALT/SGPT) 20 U/L (14-59) Alkaline Phosphatase 70 U/L (46-116) Total Protein 5.4 g/dL (6.4-8.2) Albumin 2.7 g/dL (3.4-5.0) Albumin/Globulin Ratio 1.0 (1.0-1.7) Laboratory Tests Test 11/25/17 09:55 White Blood Count 8.7 x10^3/uL (4.0-11.0) Red Blood Count 4.09 x10^6/uL (3.50-5.40) Hemoglobin 11.2 g/dL (12.0-15.5) Hematocrit 34.6 % (36.0-47.0) Mean Corpuscular Volume 85 fL (79-100) Mean Corpuscular Hemoglobin 27 pg (25-35) Mean Corpuscular Hemoglobin Concent 32 g/dL (31-37) Red Cell Distribution Width 16.6 % (11.5-14.5) Platelet Count 250 x10^3/uL (140-400) Neutrophils (%) (Auto) 84 % (31-73) Lymphocytes (%) (Auto) 9 % (24-48) Monocytes (%) (Auto) 6 % (0-9) Eosinophils (%) (Auto) 0 % (0-3) Basophils (%) (Auto) 1 % (0-3) Neutrophils # (Auto) 7.3 x10^3uL (1.8-7.7) Lymphocytes # (Auto) 0.8 x10^3/uL (1.0-4.8) Monocytes # (Auto) 0.5 x10^3/uL (0.0-1.1) Eosinophils # (Auto) 0.0 x10^3/uL (0.0-0.7) Basophils # (Auto) 0.1 x10^3/uL (0.0-0.2) Sodium Level 134 mmol/L (136-145) Potassium Level 4.5 mmol/L (3.5-5.1) Chloride Level 102 mmol/L (98-107) Carbon Dioxide Level 24 mmol/L (21-32) Anion Gap 8 (6-14) Blood Urea Nitrogen 16 mg/dL (7-20) Creatinine 0.6 mg/dL (0.6-1.0) Estimated GFR (Cockcroft-Gault) 94.6 BUN/Creatinine Ratio 27 (6-20) Glucose Level 90 mg/dL (70-99) Calcium Level 8.2 mg/dL (8.5-10.1) Total Bilirubin 0.4 mg/dL (0.2-1.0) Aspartate Amino Transf (AST/SGOT) 30 U/L (15-37) Alanine Aminotransferase (ALT/SGPT) 20 U/L (14-59) Alkaline Phosphatase 70 U/L (46-116) Total Protein 5.4 g/dL (6.4-8.2) Albumin 2.7 g/dL (3.4-5.0) Albumin/Globulin Ratio 1.0 (1.0-1.7) Microbiology 11/21/17 Blood Culture - Preliminary, Resulted NO GROWTH AFTER 3 DAYS Medications Current Medications Furosemide (Lasix) 20 mg 1X ONCE IVP Last administered on 11/21/17at 18:03; Start 11/21/17 at 17:45; Stop 11/21/17 at 17:46; Status DC Ondansetron HCl (Zofran) 4 mg PRN Q8HRS PRN IV NAUSEA/VOMITING Last administered on 11/22/17at 15:05; Start 11/21/17 at 17:45; Stop 11/22/17 at 17:44 ; Status DC Acetaminophen (Tylenol) 650 mg PRN Q4HRS PRN PO FEVER Last administered on 11/22at 08:46; Start 11/21/17 at 17:45; Stop 11/22/17 at 14:18; Status DC Albuterol/ Ipratropium (Duoneb) 3 ml RTQID NEB Last administered on 11/22/17at 15:19; Start 11/21/17 at 20:00; Stop 11/22/17 at 19:59; Status DC Acetaminophen (Tylenol) 650 mg PRN Q6HRS PRN PO MILD PAIN; Start 11/22/17 at 00 :45; Status Cancel Calcium Carbonate/ Glycine (Oscal) 500 mg DAILY PO ; Start 11/22/17 at 09:00; Status Cancel Celecoxib (CeleBREX) 100 mg BID PO ; Start 11/22/17 at 09:00; Status Cancel Docusate Sodium (Colace) 100 mg PRN BID PRN PO CONSTIPATION 1ST CHOICE; Start 11/22/17 at 00:45; Status Cancel Fentanyl (Duragesic 25mcg/ Hr Patch) 1 patch Q72H TD ; Start 11/22/17 at 00:45; Status UNV Aspirin (Ecotrin) 81 mg DAILYWBKFT PO ; Start 11/22/17 at 08:00; Status Cancel Trimethoprim/ Sulfamethoxazole (Bactrim Ds) 0.5 tab BID PO ; Start 11/22/17 at 09:00; Stop 11/24/17 at 08:59; Status Cancel Cetirizine HCl (ZyrTEC) 10 mg DAILY PO ; Start 11/22/17 at 09:00; Status Cancel Ferrous Sulfate (Feosol) 325 mg DAILYWBKFT PO ; Start 11/22/17 at 08:00; Status Cancel Gabapentin (Neurontin) 100 mg HS PO ; Start 11/22/17 at 21:00; Status Cancel Acetaminophen/ Hydrocodone Bitart (Lortab 10/325) 0.5 tab PRN Q4HRS PRN PO SEVERE PAIN; Start 11/22/17 at 00:45; Status Cancel Furosemide (Lasix) 10 mg QMWF PO ; Start 11/23/17 at 16:00; Status Cancel Losartan Potassium (Cozaar) 100 mg DAILY PO ; Start 11/22/17 at 09:00; Status Cancel Polyethylene Glycol (miraLAX PACKET) 17 gm BID PO ; Start 11/22/17 at 09:00; Status Cancel Amlodipine Besylate (Norvasc) 10 mg DAILY PO ; Start 11/22/17 at 09:00; Status Cancel Hydroxychloroquine Sulfate (Plaquenil) 100 mg BID PO ; Start 11/22/17 at 09:00; Status Cancel Guaifenesin (Robitussin Dm) 5 ml PRN Q4HRS PRN PO COUGH 1ST CHOICE; Start 11/22 at 00:45; Status Cancel Sennosides (Senna) 8.6 mg PRN BID PRN PO CONSTIPATION 2ND CHOICE; Start at 00:45; Status Cancel Simethicone (Gas-X) 80 mg PRN Q4HRS PRN PO INDIGESTION; Start 11/22/17 at 00:45 ; Status Cancel Trazodone HCl (Desyrel) 50 mg QHS PO ; Start 11/22/17 at 21:00; Status Cancel Diclofenac Sodium (Voltaren) 1 angel PRN Q6HRS PRN TP TOPICAL PAIN; Start at 00:45; Status Cancel Sertraline HCl (Zoloft) 50 mg DAILY PO ; Start 11/22/17 at 09:00; Status Cancel Lactobacillus Rhamnosus (Culturelle) 1 cap BID PO ; Start 11/22/17 at 09:00; Status Cancel Piperacillin Sod/ Tazobactam Sod (Zosyn Per Pharmacy) 1 each PRN DAILY PRN MC SEE COMMENTS; Start 11/22/17 at 13:30 Piperacillin Sod/ Tazobactam Sod 2.25 gm/Sodium Chloride 50 ml @ 100 mls/hr Q6HRS IV Last administered on 11/25/17at 05:32; Start 11/22/17 at 13:30 Acetaminophen (Tylenol) 500 mg QID PRN PO MILD PAIN; Start 11/22/17 at 14:00 Amlodipine Besylate (Norvasc) 10 mg DAILY16 PO Last administered on 11/22/17at 16:31; Start 11/22/17 at 16:00 Aspirin (Children'S Aspirin) 81 mg DAILY PO Last administered on 11/23/17at 09: 09; Start 11/22/17 at 15:00 Celecoxib (CeleBREX) 100 mg BID PO Last administered on 11/23/17at 09:10; Start 11/22/17 at 21:00 Cetirizine HCl (ZyrTEC) 10 mg DAILY PO Last administered on 11/23/17at 09:10; Start 11/22/17 at 15:00 Diclofenac Sodium (Voltaren) 2 angel PRN Q6HRS PRN TP PAIN; Start 11/22/17 at 14: 00 Fentanyl (Duragesic 25mcg/ Hr Patch) 1 patch Q3DAYS TD Last administered on at 11:09; Start 11/22/17 at 15:00 Fentanyl (Duragesic 12mcg/ Hr Patch) 1 patch Q3DAYS TD Last administered on at 11:09; Start 11/22/17 at 15:00 Ferrous Sulfate (Feosol) 325 mg DAILY PO Last administered on 11/23/17 09:10; Start 11/22/17 at 15:00 Furosemide (Lasix) 10 mg QMWF@0900 PO Last administered on 11/23/17 09:09; Start 11/23/17 at 09:00 Gabapentin (Neurontin) 100 mg QHS PO Last administered on 11/22/17 21:33; Start 11/22/17 at 21:00 Sertraline HCl (Zoloft) 50 mg DAILY PO Last administered on 11/23/17 09:09; Start 11/22/17 at 15:00 Simethicone (Gas-X) 40 mg PRN Q4HRS PRN PO GAS / BLOATING; Start 11/22/17 at 14 :15 Trazodone HCl (Desyrel) 50 mg QHS PO Last administered on 11/22/17at 21:33; Start 11/22/17 at 21:00 Guaifenesin (Robitussin Dm) 10 ml PRN Q4HRS PRN PO COUGH; Start 11/22/17 at 14: 30 Acetaminophen/ Hydrocodone Bitart (Lortab 10/325) 0.5 tab PRN Q4HRS PRN PO MOD TO SEVERE PAIN; Start 11/22/17 at 14:30 Hydroxychloroquine Sulfate (Plaquenil) 100 mg BID PO Last administered on at 09:09; Start 11/22/17 at 21:00 Albuterol Sulfate (Ventolin Neb Soln) 2.5 mg PRN Q6HRS PRN NEB SHORTNESS OF BREATH; Start 11/22/17 at 14:30 Losartan Potassium (Cozaar) 100 mg DAILY PO Last administered on 11/23/17 09: 10; Start 11/23/17 at 09:00 Multivitamins (Thera M Plus) 1 tab DAILY PO Last administered on 11/23/17 09: 09; Start 11/22/17 at 15:00 Ondansetron HCl (Zofran Odt) 4 mg PRN Q8HRS PRN PO NAUSEA/VOMITING; Start 11/22 at 14:30 Polyethylene Glycol (miraLAX PACKET) 17 gm BID PO ; Start 11/22/17 at 21:00 Saliva Substitute (Biotene Moisturizing Mouth) 2 spray TIDAFTMEAL PO Last administered on 11/25/17 09:30; Start 11/22/17 at 18:00 Sennosides (Senna) 8.6 mg PRN DAILY PRN PO CONSTIPATION; Start 11/22/17 at 14: 30 Multi-Ingredient Ointment (Analgesic [place]) 1 angel TID TP Last administered on at 09:30; Start 11/22/17 at 21:00 Alprazolam (Xanax) 0.25 mg PRN Q8HRS PRN PO ANXIETY / AGITATION; Start at 14:00 Barium Sulfate (Varibar Thin Liquid Apple) 148 gm 1X ONCE PO Last administered on 11/23/17 11:23; Start 11/23/17 at 11:00; Stop 11/23/17 at 11:01 ; Status DC Pantoprazole Sodium (PROTONIX VIAL for IV PUSH) 40 mg DAILYAC IVP Last administered on 11/25/17 09:31; Start 11/24/17 at 07:30 Sodium Chloride 1,000 ml @ 100 mls/hr Q10H IV Last administered on 11/24/17 03:15; Start 11/23/17 at 15:15; Stop 11/24/17 at 13:28; Status DC Diphenhydramine HCl (Benadryl) 25 mg Q4HRS PRN IVP ALLERGIES Last administered on 11/24/17 21:13; Start 11/23/17 at 15:15 Ondansetron HCl (Zofran) 4 mg PRN Q6HRS PRN IV NAUSEA/VOMITING Last administered on 11/24/17at 12:51; Start 11/23/17 at 15:15 Clonidine HCl (Catapres Tts-1) 1 patch WEEKLY TD Last administered on 15:37; Start 11/23/17 at 16:00 Enalaprilat (Vasotec Inj) 1.25 mg PRN Q6HRS PRN IVP HYPERTENSION, 2ND CHOICE; Start 11/23/17 at 16:30 Amino Acids/ Glycerin/ Electrolytes 1,000 ml @ 80 mls/hr [id number] IV Last administered on 9/15/18at 16:04; Start 11/24/17 at 13:30 Morphine Sulfate (Morphine Sulfate) 2 mg PRN Q2HR PRN IV PAIN; Start 11/24/17 at 13:30 Labetalol HCl (Normodyne Iv Push) 20 mg PRN Q2HR PRN IVP GIVE FOR SBP > 160, 1ST CHOICE; Start 11/25/17 at 08:45 Labetalol HCl (Normodyne Iv Push) 20 mg 1X ONCE IVP Last administered on at 11:09; Start 11/25/17 at 09:00; Stop 11/25/17 at 09:01; Status DC Active Scripts Active Reported FENTANYL 12mcg/hr (Fentanyl) 1 Each Patch.td72 1 Patch TP Q3DAYS Nexium Capsule (Esomeprazole Magnesium) 40 Mg Capsule.dr 40 Mg PO DAILYAC Bactrim 400-80 Mg Tablet (Sulfamethoxazole/Trimethoprim) 1 Each Tablet 1 Each PO BID 7 Days Voltaren (Diclofenac Sodium) 100 Gm Gel..gram. 2 Gm TP PRN Q6HRS PRN Senna (Sennosides) 8.8 Mg/5 Ml Syrup 8.8 Mg PO PRN DAILY PRN Zoloft (Sertraline Hcl) 50 Mg Tablet 1 Tab PO DAILY Zofran (Ondansetron Hcl) 4 Mg Tablet 1 Tab PO PRN Q6HRS PRN Hydrocodone-Apap 10-325 (Hydrocodone Bit/Acetaminophen) 1 Each Tablet 0.5 Tab PO PRN Q4HRS PRN Gabapentin 100 Mg Capsule 100 Mg PO QHS Ferrous Sulfate 325 Mg Tablet 1 Tab PO DAILY DURAGESIC 25mcg/hr (Fentanyl) 1 Each Patch.td72 1 Patch TP Q3DAYS Cetirizine Hcl 10 Mg Tablet 1 Tab PO DAILY Celebrex (Celecoxib) 100 Mg Capsule 1 Cap PO BID Calcium (Calcium Carbonate) 600 Mg Tablet 600 Mg PO BID Biotene (Saliva Substitution Combo No.9) 1,000 Ml Mouthwash 15 Ml MM TIDAFTMEAL Aspirin 81 Mg Tab.chew 1 Tab PO DAILY Aspercreme 10% Cream (Trolamine Salicylate/Aloe Vera) 35.4 Gm Cream..g. 35.4 Gm TP TID Acetaminophen 500 Mg Tablet 1 Tab PO QID PRN Xopenex (Levalbuterol Hcl) 0.63 Mg/3 Ml Vial.neb 1 Vial NEB PRN QID PRN Trazodone Hcl 50 Mg Tablet 1 Tab PO QHS Simethicone 40 Mg/0.6 Ml Drops.susp 40 Mg PO PRN Q4HRS PRN Robitussin Cough-Chest Dm Liq (Guaifenesin/Dextromethorphan) 237 Ml Liquid 20 Ml PO PRN Q4HRS PRN Plaquenil (Hydroxychloroquine Sulfate) 200 Mg Tablet 100 Mg PO BID Norvasc (Amlodipine Besylate) 10 Mg Tablet 10 Mg PO DAILY Miralax (Polyethylene Glycol 3350) 17 Gm Powd.pack 1 Packet PO BID Lasix (Furosemide) 20 Mg Tablet 10 Mg PO QMWF Multi Vitamin Daily (Multivitamin) 1 Each Tablet 1 Each PO DAILY Alendronate Sodium 70 Mg Tablet 1 Tab PO WEEKLY Losartan Potassium 100 Mg Tablet 100 Mg PO DAILY Vitals/I & O Vital Sign - Last 24 Hours 11/24/17 11/24/17 11/24/17 11/24/17 15:00 19:00 20:00 23:00 Temp 97.7 97.7 98.3 97.7 97.7 98.3 Pulse 69 69 87 Resp 20 20 20 B/P (MAP) 154/59 (90) 183/87 (119) 98/62 (74) Pulse Ox 95 98 95 O2 Delivery Room Air Room Air Room Air Room Air 11/25/17 11/25/17 11/25/17 11/25/17 03:00 07:00 11:09 11:09 Temp 97.9 97.9 97.9 97.9 Pulse 64 62 Resp 20 18 B/P (MAP) 164/83 (110) 170/54 (92) Pulse Ox 93 93 O2 Delivery Room Air Room Air Room Air Room Air 11/25/17 11:09 Pulse 65 B/P (MAP) 164/66 Intake and Output 11/24/17 11/24/17 11/25/17 15:00 23:00 07:00 Intake Total 0 ml Balance 0 ml Nutrition Consultation Dietary Evaluation: Recommendations by RD: Increase Calorie Intake, Protein supplementation Comments: ensure enlive tid pt to benefit from an appetite stimulant Expected Outcomes/Goals: to meet > 75% est nutr needs Malnutrition Findings: Body Fat Depletion (Non Severe: Mild Depletion Weight Status: Underweight ARIELLA CASIANO MD Nov 25, 2017 11:18
--- NOTE | 2017-11-25 14:05 | PDOC ---
Subjective: Subjective: No new events Objective: Vital Signs: Vital Signs Date Time Temp Pulse Resp B/P (MAP) Pulse Ox O2 Delivery O2 Flow Rate FiO2 11/25/17 11:09 65 164/66 11/25/17 11:09 Room Air 11/25/17 11:00 98.6 17 95 98.6 Labs: Laboratory Tests Test 11/25/17 09:55 White Blood Count 8.7 x10^3/uL (4.0-11.0) Red Blood Count 4.09 x10^6/uL (3.50-5.40) Hemoglobin 11.2 g/dL (12.0-15.5) Hematocrit 34.6 % (36.0-47.0) Mean Corpuscular Volume 85 fL (79-100) Mean Corpuscular Hemoglobin 27 pg (25-35) Mean Corpuscular Hemoglobin Concent 32 g/dL (31-37) Red Cell Distribution Width 16.6 % (11.5-14.5) Platelet Count 250 x10^3/uL (140-400) Neutrophils (%) (Auto) 84 % (31-73) Lymphocytes (%) (Auto) 9 % (24-48) Monocytes (%) (Auto) 6 % (0-9) Eosinophils (%) (Auto) 0 % (0-3) Basophils (%) (Auto) 1 % (0-3) Neutrophils # (Auto) 7.3 x10^3uL (1.8-7.7) Lymphocytes # (Auto) 0.8 x10^3/uL (1.0-4.8) Monocytes # (Auto) 0.5 x10^3/uL (0.0-1.1) Eosinophils # (Auto) 0.0 x10^3/uL (0.0-0.7) Basophils # (Auto) 0.1 x10^3/uL (0.0-0.2) Sodium Level 134 mmol/L (136-145) Potassium Level 4.5 mmol/L (3.5-5.1) Chloride Level 102 mmol/L (98-107) Carbon Dioxide Level 24 mmol/L (21-32) Anion Gap 8 (6-14) Blood Urea Nitrogen 16 mg/dL (7-20) Creatinine 0.6 mg/dL (0.6-1.0) Estimated GFR (Cockcroft-Gault) 94.6 BUN/Creatinine Ratio 27 (6-20) Glucose Level 90 mg/dL (70-99) Calcium Level 8.2 mg/dL (8.5-10.1) Total Bilirubin 0.4 mg/dL (0.2-1.0) Aspartate Amino Transf (AST/SGOT) 30 U/L (15-37) Alanine Aminotransferase (ALT/SGPT) 20 U/L (14-59) Alkaline Phosphatase 70 U/L (46-116) Total Protein 5.4 g/dL (6.4-8.2) Albumin 2.7 g/dL (3.4-5.0) Albumin/Globulin Ratio 1.0 (1.0-1.7) Physical Exam: Physical Exam: GEN: NAD HEENT: OP clear CV: S1S2 without murmurs, rubs, or gallops RESP: CTAB without wheezing, rhonchi, or crackles ABD: NABS, SNT/ND EXT: No edema NEURO: AAO x 3 Assessment & Plan: Assessment : A/P: A/P: Dyspnea 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 Defer to primary SHEFALI ANGELES MD Nov 25, 2017 14:04
[2017-11-25] MEDS ORDERED: 0.9 % SODIUM CHLORIDE 10 ML DISP.SYRIN. IV PRN (14:15)
[2017-11-25 15:00] VITALS: BP 164/70
[2017-11-25] MEDS: amLODIPine BESYLATE 10 MG TABLET PO SCH (16:00)
[2017-11-25 19:00] VITALS: BP 144/84
[2017-11-25] MEDS: GABAPENTIN 100 MG CAPSULE. PO SCH (21:00)
[2017-11-25] MEDS: traZODone 50 MG TABLET. PO SCH (21:00)
[2017-11-25 23:00] VITALS: BP 161/69
[2017-11-26] VITALS (8 sets, daily range): BP systolic 145–182; BP diastolic 62–75
[2017-11-26] MEDS: PIPERACILLIN/TAZOBACTAM 2.25 GM in IV NORMAL SALINE 50ML 50 ML IV SCH ×5 (00:14→23:40)
[2017-11-26] MEDS: AMINO AC 3%/ELECTROLYTE/GLYCER 1,000 ML IV SCH ×2 (05:44→17:30)
[2017-11-26] MEDS: PANTOPRAZOLE IV PUSH 40 MG VIAL. IVP SCH (06:54)
[2017-11-26 07:58] LABS: CREATININE 0.6 mg/dL (0.6-1.0); GFR 94.6; POTASSIUM 3.8 mmol/L (3.5-5.1)
[2017-11-26] MEDS: SALIVA STIMULANT AGENT 44ML SPRAY BOTTLE. PO SCH ×3 (08:34→17:31)
[2017-11-26] MEDS: LOSARTAN POTASSIUM 50 MG TABLET. PO SCH (08:34)
[2017-11-26] MEDS: CELECOXIB 100 MG CAPSULE. PO SCH ×2 (08:34→20:43)
[2017-11-26] MEDS: ASPIRIN CHEWABLE 81 MG TABLET. PO SCH (08:34)
[2017-11-26] MEDS: POLYETHYLENE GLYCOL 3350 17 GM PACKET. PO SCH ×2 (08:34→20:43)
[2017-11-26] MEDS: FUROSEMIDE 20 MG TABLET PO SCH (08:34)
[2017-11-26] MEDS: FERROUS SULFATE 325 MG TABLET. PO SCH (08:34)
[2017-11-26] MEDS: HYDROXYCHLOROQUINE 200 MG TABLET PO SCH ×2 (08:35→20:44)
[2017-11-26] MEDS: CETIRIZINE HCL 10 MG TABLET. PO SCH (08:35)
[2017-11-26] MEDS: MULTIVITAMIN with MINERAL TABLET. PO SCH (08:35)
[2017-11-26] MEDS: SERTRALINE 50 MG TABLET. PO SCH (08:35)
[2017-11-26] MEDS: METHYL SALICYLATE/MENTHOL TOPICAL OINTMENT 29GM TUBE. TP SCH ×3 (09:32→20:44)
--- NOTE | 2017-11-26 11:35 | PDOC ---
PULMONARY PROGRESS NOTES Subjective feeling better, sob is better, has cough, no pain Vitals Vital Signs Date Time Temp Pulse Resp B/P (MAP) Pulse Ox O2 Delivery O2 Flow Rate FiO2 11/26/17 08:00 Room Air 11/26/17 07:00 98.1 63 18 151/68 (95) 96 98.1 ROS: No Nausea, No Chest Pain, No Abdominal Pain, No Increase Cough General: Alert, Oriented X4 HEENT: Other (nc at perrl nose throat clear) Lungs: Crackles (bases) Cardiovascular: S1, S2 Abdomen: Soft, Non-tender Neuro Exam: Alert Extremities: No Edema Skin: Warm Labs Laboratory Tests Test 11/25/17 09:55 11/26/17 06:55 White Blood Count 8.7 x10^3/uL (4.0-11.0) Red Blood Count 4.09 x10^6/uL (3.50-5.40) Hemoglobin 11.2 g/dL (12.0-15.5) Hematocrit 34.6 % (36.0-47.0) Mean Corpuscular Volume 85 fL (79-100) Mean Corpuscular Hemoglobin 27 pg (25-35) Mean Corpuscular Hemoglobin Concent 32 g/dL (31-37) Red Cell Distribution Width 16.6 % (11.5-14.5) Platelet Count 250 x10^3/uL (140-400) Neutrophils (%) (Auto) 84 % (31-73) Lymphocytes (%) (Auto) 9 % (24-48) Monocytes (%) (Auto) 6 % (0-9) Eosinophils (%) (Auto) 0 % (0-3) Basophils (%) (Auto) 1 % (0-3) Neutrophils # (Auto) 7.3 x10^3uL (1.8-7.7) Lymphocytes # (Auto) 0.8 x10^3/uL (1.0-4.8) Monocytes # (Auto) 0.5 x10^3/uL (0.0-1.1) Eosinophils # (Auto) 0.0 x10^3/uL (0.0-0.7) Basophils # (Auto) 0.1 x10^3/uL (0.0-0.2) Sodium Level 134 mmol/L (136-145) 137 mmol/L (136-145) Potassium Level 4.5 mmol/L (3.5-5.1) 3.8 mmol/L (3.5-5.1) Chloride Level 102 mmol/L (98-107) 105 mmol/L (98-107) Carbon Dioxide Level 24 mmol/L (21-32) 22 mmol/L (21-32) Anion Gap 8 (6-14) 10 (6-14) Blood Urea Nitrogen 16 mg/dL (7-20) 13 mg/dL (7-20) Creatinine 0.6 mg/dL (0.6-1.0) 0.6 mg/dL (0.6-1.0) Estimated GFR (Cockcroft-Gault) 94.6 94.6 BUN/Creatinine Ratio 27 (6-20) Glucose Level 90 mg/dL (70-99) 97 mg/dL (70-99) Calcium Level 8.2 mg/dL (8.5-10.1) 8.0 mg/dL (8.5-10.1) Total Bilirubin 0.4 mg/dL (0.2-1.0) Aspartate Amino Transf (AST/SGOT) 30 U/L (15-37) Alanine Aminotransferase (ALT/SGPT) 20 U/L (14-59) Alkaline Phosphatase 70 U/L (46-116) Total Protein 5.4 g/dL (6.4-8.2) Albumin 2.7 g/dL (3.4-5.0) Albumin/Globulin Ratio 1.0 (1.0-1.7) Laboratory Tests Test 11/26/17 06:55 Sodium Level 137 mmol/L (136-145) Potassium Level 3.8 mmol/L (3.5-5.1) Chloride Level 105 mmol/L (98-107) Carbon Dioxide Level 22 mmol/L (21-32) Anion Gap 10 (6-14) Blood Urea Nitrogen 13 mg/dL (7-20) Creatinine 0.6 mg/dL (0.6-1.0) Estimated GFR (Cockcroft-Gault) 94.6 Glucose Level 97 mg/dL (70-99) Calcium Level 8.0 mg/dL (8.5-10.1) Medications Active Scripts Medications Dose Route/Sig Max Daily Dose Days Date Category FENTANYL 12mcg/hr (Fentanyl) 1 Each Patch.td72 1 Patch TP Q3DAYS 11/22/17 Reported Nexium Capsule (Esomeprazole Magnesium) 40 Mg Capsule.dr 40 Mg PO DAILYAC 11/22/17 Reported Bactrim 400-80 Mg Tablet (Sulfamethoxazole/Trimethoprim) 1 Each Tablet 1 Each PO BID 7 11/22/17 Reported Voltaren (Diclofenac Sodium) 100 Gm Gel..gram. 2 Gm TP PRN Q6HRS PRN 11/22/17 Reported Senna (Sennosides) 8.8 Mg/5 Ml Syrup 8.8 Mg PO PRN DAILY PRN 11/22/17 Reported Zoloft (Sertraline Hcl) 50 Mg Tablet 1 Tab PO DAILY 11/22/17 Reported Zofran (Ondansetron Hcl) 4 Mg Tablet 1 Tab PO PRN Q6HRS PRN 11/22/17 Reported Hydrocodone-Apap 10-325 (Hydrocodone Bit/Acetaminophen) 1 Each Tablet 0.5 Tab PO PRN Q4HRS PRN 11/22/17 Reported Gabapentin 100 Mg Capsule 100 Mg PO QHS 11/22/17 Reported Ferrous Sulfate 325 Mg Tablet 1 Tab PO DAILY 11/22/17 Reported DURAGESIC 25mcg/hr (Fentanyl) 1 Each Patch.td72 1 Patch TP Q3DAYS 11/22/17 Reported Cetirizine Hcl 10 Mg Tablet 1 Tab PO DAILY 11/22/17 Reported Celebrex (Celecoxib) 100 Mg Capsule 1 Cap PO BID 11/22/17 Reported Calcium (Calcium Carbonate) 600 Mg Tablet 600 Mg PO BID 11/22/17 Reported Biotene (Saliva Substitution Combo No.9) 1,000 Ml Mouthwash 15 Ml MM TIDAFTMEAL 11/22/17 Reported Aspirin 81 Mg Tab.chew 1 Tab PO DAILY 11/22/17 Reported Aspercreme 10% Cream (Trolamine Salicylate/Aloe Vera) 35.4 Gm Cream..g. 35.4 Gm TP TID 11/22/17 Reported Acetaminophen 500 Mg Tablet 1 Tab PO QID PRN 11/22/17 Reported Xopenex (Levalbuterol Hcl) 0.63 Mg/3 Ml Vial.neb 1 Vial NEB PRN QID PRN 11/22/17 Reported Trazodone Hcl 50 Mg Tablet 1 Tab PO QHS 11/22/17 Reported Simethicone 40 Mg/0.6 Ml Drops.susp 40 Mg PO PRN Q4HRS PRN 11/22/17 Reported Robitussin Cough-Chest Dm Liq (Guaifenesin/Dextromethorphan) 237 Ml Liquid 20 Ml PO PRN Q4HRS PRN 11/22/17 Reported Plaquenil (Hydroxychloroquine Sulfate) 200 Mg Tablet 100 Mg PO BID 11/22/17 Reported Norvasc (Amlodipine Besylate) 10 Mg Tablet 10 Mg PO DAILY 11/22/17 Reported Miralax (Polyethylene Glycol 3350) 17 Gm Powd.pack 1 Packet PO BID 11/22/17 Reported Lasix (Furosemide) 20 Mg Tablet 10 Mg PO QMWF 11/22/17 Reported Multi Vitamin Daily (Multivitamin) 1 Each Tablet 1 Each PO DAILY 01/07/15 Reported Alendronate Sodium 70 Mg Tablet 1 Tab PO WEEKLY 12/11/14 Reported Losartan Potassium 100 Mg Tablet 100 Mg PO DAILY 11/25/14 Reported Impression . 1. Progressive dyspnea. CXR 11/21 stable 2. Possible aspiration. 3. Suspect dementia. 4. Arrhythmia, status post pacemaker implantation. 5. Abnormal videoswallow/[employer] eval - esophageal dysphagia w/ aspiration, imaging suggests stricture, is now NPO/EGD today 6. 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 This results in stasis of the ingested materials in the lower cervical esophagus with back flow and intermittent aspiration. Upper endoscopic evaluation is suggested. Plan . elevate hob EGD today NPO, cont ANTIBX 02 titration protonix iv discussed w pt, family SHI ALEMAN MD Nov 26, 2017 11:35
[2017-11-26] MEDS: IV RINGERS,LACTATED 1000ML 1,000 ML IV SCH (11:59)
--- NOTE | 2017-11-26 12:17 | PDOC ---
PROGRESS NOTES Chief Complaint Chief Complaint IMPRESSION: Progressive dyspnea. with aspiration likely Possible esophageal stricture , dysphagia and aspiration. Suspectmild dementia. 4. Arrhythmia, status post pacemaker implantation. htn stable systolic and grade 1 diastolic CHF, EF 40% plan: waiting for EGD today ivf, NPO fu with pulm on zosyn some po meds cannot be given since NPO, dc amlodipine PTOT recommend SNF, but pt refused, wants HH History of Present Illness History of Present Illness no sob, feels ok ROS: no fever, chills, sob or chest pain video swallow eval shows Esophageal 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 Vitals Vitals Vital Signs Date Time Temp Pulse Resp B/P (MAP) Pulse Ox O2 Delivery O2 Flow Rate FiO2 11/26/17 11:44 98.4 61 18 95 98.4 11/26/17 11:44 Room Air 11/26/17 11:00 157/72 (100) Physical Exam Physical Exam General: Alert, Oriented X3, Cooperative, No acute distress Heart: Regular rate (Paced), Normal S1, Normal S2, Other (3/6 systolic murmur to apex) Lungs: Crackles (bases) Abdomen: Soft, No tenderness Extremities: No clubbing, No cyanosis, No edema Skin: No breakdown, No significant lesion Labs LABS Laboratory Tests Test 11/26/17 06:55 Sodium Level 137 mmol/L (136-145) Potassium Level 3.8 mmol/L (3.5-5.1) Chloride Level 105 mmol/L (98-107) Carbon Dioxide Level 22 mmol/L (21-32) Anion Gap 10 (6-14) Blood Urea Nitrogen 13 mg/dL (7-20) Creatinine 0.6 mg/dL (0.6-1.0) Estimated GFR (Cockcroft-Gault) 94.6 Glucose Level 97 mg/dL (70-99) Calcium Level 8.0 mg/dL (8.5-10.1) Comment Review of Relevant I have reviewed the following items hilario (where applicable) has been applied. Labs Laboratory Tests Test 11/25/17 09:55 11/26/17 06:55 White Blood Count 8.7 x10^3/uL (4.0-11.0) Red Blood Count 4.09 x10^6/uL (3.50-5.40) Hemoglobin 11.2 g/dL (12.0-15.5) Hematocrit 34.6 % (36.0-47.0) Mean Corpuscular Volume 85 fL (79-100) Mean Corpuscular Hemoglobin 27 pg (25-35) Mean Corpuscular Hemoglobin Concent 32 g/dL (31-37) Red Cell Distribution Width 16.6 % (11.5-14.5) Platelet Count 250 x10^3/uL (140-400) Neutrophils (%) (Auto) 84 % (31-73) Lymphocytes (%) (Auto) 9 % (24-48) Monocytes (%) (Auto) 6 % (0-9) Eosinophils (%) (Auto) 0 % (0-3) Basophils (%) (Auto) 1 % (0-3) Neutrophils # (Auto) 7.3 x10^3uL (1.8-7.7) Lymphocytes # (Auto) 0.8 x10^3/uL (1.0-4.8) Monocytes # (Auto) 0.5 x10^3/uL (0.0-1.1) Eosinophils # (Auto) 0.0 x10^3/uL (0.0-0.7) Basophils # (Auto) 0.1 x10^3/uL (0.0-0.2) Sodium Level 134 mmol/L (136-145) 137 mmol/L (136-145) Potassium Level 4.5 mmol/L (3.5-5.1) 3.8 mmol/L (3.5-5.1) Chloride Level 102 mmol/L (98-107) 105 mmol/L (98-107) Carbon Dioxide Level 24 mmol/L (21-32) 22 mmol/L (21-32) Anion Gap 8 (6-14) 10 (6-14) Blood Urea Nitrogen 16 mg/dL (7-20) 13 mg/dL (7-20) Creatinine 0.6 mg/dL (0.6-1.0) 0.6 mg/dL (0.6-1.0) Estimated GFR (Cockcroft-Gault) 94.6 94.6 BUN/Creatinine Ratio 27 (6-20) Glucose Level 90 mg/dL (70-99) 97 mg/dL (70-99) Calcium Level 8.2 mg/dL (8.5-10.1) 8.0 mg/dL (8.5-10.1) Total Bilirubin 0.4 mg/dL (0.2-1.0) Aspartate Amino Transf (AST/SGOT) 30 U/L (15-37) Alanine Aminotransferase (ALT/SGPT) 20 U/L (14-59) Alkaline Phosphatase 70 U/L (46-116) Total Protein 5.4 g/dL (6.4-8.2) Albumin 2.7 g/dL (3.4-5.0) Albumin/Globulin Ratio 1.0 (1.0-1.7) Laboratory Tests Test 11/26/17 06:55 Sodium Level 137 mmol/L (136-145) Potassium Level 3.8 mmol/L (3.5-5.1) Chloride Level 105 mmol/L (98-107) Carbon Dioxide Level 22 mmol/L (21-32) Anion Gap 10 (6-14) Blood Urea Nitrogen 13 mg/dL (7-20) Creatinine 0.6 mg/dL (0.6-1.0) Estimated GFR (Cockcroft-Gault) 94.6 Glucose Level 97 mg/dL (70-99) Calcium Level 8.0 mg/dL (8.5-10.1) Microbiology 11/21/17 Blood Culture - Preliminary, Resulted NO GROWTH AFTER 4 DAYS Medications Current Medications Furosemide (Lasix) 20 mg 1X ONCE IVP Last administered on 11/21/17at 18:03; Start 11/21/17 at 17:45; Stop 11/21/17 at 17:46; Status DC Ondansetron HCl (Zofran) 4 mg PRN Q8HRS PRN IV NAUSEA/VOMITING Last administered on 11/22/17at 15:05; Start 11/21/17 at 17:45; Stop 11/22/17 at 17:44 ; Status DC Acetaminophen (Tylenol) 650 mg PRN Q4HRS PRN PO FEVER Last administered on 11/22at 08:46; Start 11/21/17 at 17:45; Stop 11/22/17 at 14:18; Status DC Albuterol/ Ipratropium (Duoneb) 3 ml RTQID NEB Last administered on 11/22/17at 15:19; Start 11/21/17 at 20:00; Stop 11/22/17 at 19:59; Status DC Acetaminophen (Tylenol) 650 mg PRN Q6HRS PRN PO MILD PAIN; Start 11/22/17 at 00 :45; Status Cancel Calcium Carbonate/ Glycine (Oscal) 500 mg DAILY PO ; Start 11/22/17 at 09:00; Status Cancel Celecoxib (CeleBREX) 100 mg BID PO ; Start 11/22/17 at 09:00; Status Cancel Docusate Sodium (Colace) 100 mg PRN BID PRN PO CONSTIPATION 1ST CHOICE; Start 11/22/17 at 00:45; Status Cancel Fentanyl (Duragesic 25mcg/ Hr Patch) 1 patch Q72H TD ; Start 11/22/17 at 00:45; Status UNV Aspirin (Ecotrin) 81 mg DAILYWBKFT PO ; Start 11/22/17 at 08:00; Status Cancel Trimethoprim/ Sulfamethoxazole (Bactrim Ds) 0.5 tab BID PO ; Start 11/22/17 at 09:00; Stop 11/24/17 at 08:59; Status Cancel Cetirizine HCl (ZyrTEC) 10 mg DAILY PO ; Start 11/22/17 at 09:00; Status Cancel Ferrous Sulfate (Feosol) 325 mg DAILYWBKFT PO ; Start 11/22/17 at 08:00; Status Cancel Gabapentin (Neurontin) 100 mg HS PO ; Start 11/22/17 at 21:00; Status Cancel Acetaminophen/ Hydrocodone Bitart (Lortab 10/325) 0.5 tab PRN Q4HRS PRN PO SEVERE PAIN; Start 11/22/17 at 00:45; Status Cancel Furosemide (Lasix) 10 mg QMWF PO ; Start 11/23/17 at 16:00; Status Cancel Losartan Potassium (Cozaar) 100 mg DAILY PO ; Start 11/22/17 at 09:00; Status Cancel Polyethylene Glycol (miraLAX PACKET) 17 gm BID PO ; Start 11/22/17 at 09:00; Status Cancel Amlodipine Besylate (Norvasc) 10 mg DAILY PO ; Start 11/22/17 at 09:00; Status Cancel Hydroxychloroquine Sulfate (Plaquenil) 100 mg BID PO ; Start 11/22/17 at 09:00; Status Cancel Guaifenesin (Robitussin Dm) 5 ml PRN Q4HRS PRN PO COUGH 1ST CHOICE; Start 11/22 at 00:45; Status Cancel Sennosides (Senna) 8.6 mg PRN BID PRN PO CONSTIPATION 2ND CHOICE; Start at 00:45; Status Cancel Simethicone (Gas-X) 80 mg PRN Q4HRS PRN PO INDIGESTION; Start 11/22/17 at 00:45 ; Status Cancel Trazodone HCl (Desyrel) 50 mg QHS PO ; Start 11/22/17 at 21:00; Status Cancel Diclofenac Sodium (Voltaren) 1 angel PRN Q6HRS PRN TP TOPICAL PAIN; Start at 00:45; Status Cancel Sertraline HCl (Zoloft) 50 mg DAILY PO ; Start 11/22/17 at 09:00; Status Cancel Lactobacillus Rhamnosus (Culturelle) 1 cap BID PO ; Start 11/22/17 at 09:00; Status Cancel Piperacillin Sod/ Tazobactam Sod (Zosyn Per Pharmacy) 1 each PRN DAILY PRN MC SEE COMMENTS; Start 11/22/17 at 13:30 Piperacillin Sod/ Tazobactam Sod 2.25 gm/Sodium Chloride 50 ml @ 100 mls/hr Q6HRS IV Last administered on 11/26/17at 05:48; Start 11/22/17 at 13:30 Acetaminophen (Tylenol) 500 mg QID PRN PO MILD PAIN; Start 11/22/17 at 14:00 Amlodipine Besylate (Norvasc) 10 mg DAILY16 PO Last administered on 11/22/17at 16:31; Start 11/22/17 at 16:00 Aspirin (Children'S Aspirin) 81 mg DAILY PO Last administered on 11/23/17at 09: 09; Start 11/22/17 at 15:00 Celecoxib (CeleBREX) 100 mg BID PO Last administered on 11/23/17at 09:10; Start 11/22/17 at 21:00 Cetirizine HCl (ZyrTEC) 10 mg DAILY PO Last administered on 11/23/17at 09:10; Start 11/22/17 at 15:00 Diclofenac Sodium (Voltaren) 2 angel PRN Q6HRS PRN TP PAIN; Start 11/22/17 at 14: 00 Fentanyl (Duragesic 25mcg/ Hr Patch) 1 patch Q3DAYS TD Last administered on 11:09; Start 11/22/17 at 15:00 Fentanyl (Duragesic 12mcg/ Hr Patch) 1 patch Q3DAYS TD Last administered on 11:09; Start 11/22/17 at 15:00 Ferrous Sulfate (Feosol) 325 mg DAILY PO Last administered on 11/23/17 09:10; Start 11/22/17 at 15:00 Furosemide (Lasix) 10 mg QMWF@0900 PO Last administered on 11/23/17 09:09; Start 11/23/17 at 09:00 Gabapentin (Neurontin) 100 mg QHS PO Last administered on 11/22/17 21:33; Start 11/22/17 at 21:00 Sertraline HCl (Zoloft) 50 mg DAILY PO Last administered on 11/23/17at 09:09; Start 11/22/17 at 15:00 Simethicone (Gas-X) 40 mg PRN Q4HRS PRN PO GAS / BLOATING; Start 11/22/17 at 14 :15 Trazodone HCl (Desyrel) 50 mg QHS PO Last administered on 11/22/17 21:33; Start 11/22/17 at 21:00 Guaifenesin (Robitussin Dm) 10 ml PRN Q4HRS PRN PO COUGH; Start 11/22/17 at 14: 30 Acetaminophen/ Hydrocodone Bitart (Lortab 10/325) 0.5 tab PRN Q4HRS PRN PO MOD TO SEVERE PAIN; Start 11/22/17 at 14:30 Hydroxychloroquine Sulfate (Plaquenil) 100 mg BID PO Last administered on 09:09; Start 11/22/17 at 21:00 Albuterol Sulfate (Ventolin Neb Soln) 2.5 mg PRN Q6HRS PRN NEB SHORTNESS OF BREATH; Start 11/22/17 at 14:30 Losartan Potassium (Cozaar) 100 mg DAILY PO Last administered on 11/23/17at 09: 10; Start 11/23/17 at 09:00 Multivitamins (Thera M Plus) 1 tab DAILY PO Last administered on 11/23/17at 09: 09; Start 11/22/17 at 15:00 Ondansetron HCl (Zofran Odt) 4 mg PRN Q8HRS PRN PO NAUSEA/VOMITING; Start 11/22 at 14:30 Polyethylene Glycol (miraLAX PACKET) 17 gm BID PO ; Start 11/22/17 at 21:00 Saliva Substitute (Biotene Moisturizing Mouth) 2 spray TIDAFTMEAL PO Last administered on 11/25/17at 17:56; Start 11/22/17 at 18:00 Sennosides (Senna) 8.6 mg PRN DAILY PRN PO CONSTIPATION; Start 11/22/17 at 14: 30 Multi-Ingredient Ointment (Analgesic Valdez) 1 angel TID TP Last administered on 17:56; Start 11/22/17 at 21:00 Alprazolam (Xanax) 0.25 mg PRN Q8HRS PRN PO ANXIETY / AGITATION; Start at 14:00 Barium Sulfate (Varibar Thin Liquid Apple) 148 gm 1X ONCE PO Last administered on 11/23/17at 11:23; Start 11/23/17 at 11:00; Stop 11/23/17 at 11:01 ; Status DC Pantoprazole Sodium (PROTONIX VIAL for IV PUSH) 40 mg DAILYAC IVP Last administered on 11/26/17at 06:54; Start 11/24/17 at 07:30 Sodium Chloride 1,000 ml @ 100 mls/hr Q10H IV Last administered on 11/24/17 03:15; Start 11/23/17 at 15:15; Stop 11/24/17 at 13:28; Status DC Diphenhydramine HCl (Benadryl) 25 mg Q4HRS PRN IVP ALLERGIES Last administered on 11/24/17 21:13; Start 11/23/17 at 15:15 Ondansetron HCl (Zofran) 4 mg PRN Q6HRS PRN IV NAUSEA/VOMITING Last administered on 11/24/17at 12:51; Start 11/23/17 at 15:15 Clonidine HCl (Catapres Tts-1) 1 patch WEEKLY TD Last administered on 9/14/ 18at 15:37; Start 11/23/17 at 16:00 Enalaprilat (Vasotec Inj) 1.25 mg PRN Q6HRS PRN IVP HYPERTENSION, 2ND CHOICE; Start 11/23/17 at 16:30 Amino Acids/ Glycerin/ Electrolytes 1,000 ml @ 80 mls/hr [id number] IV Last administered on 11/26/17at 05:44; Start 11/24/17 at 13:30 Morphine Sulfate (Morphine Sulfate) 2 mg PRN Q2HR PRN IV PAIN; Start 11/24/17 at 13:30 Labetalol HCl (Normodyne Iv Push) 20 mg PRN Q2HR PRN IVP GIVE FOR SBP > 160, 1ST CHOICE; Start 11/25/17 at 08:45 Labetalol HCl (Normodyne Iv Push) 20 mg 1X ONCE IVP Last administered on at 11:09; Start 11/25/17 at 09:00; Stop 11/25/17 at 09:01; Status DC Sodium Chloride (Normal Saline Flush) 3 ml QSHIFT PRN IV AFTER MEDS AND BLOOD DRAWS; Start 11/25/17 at 14:15 Lorazepam (Ativan) 1 mg PRN Q4HRS PRN IV ANXIETY / AGITATION Last administered on 11/25/17at 18:05; Start 11/25/17 at 16:15 Ringer's Solution 1,000 ml @ 75 mls/hr [id number] IV Last administered on at 11:59; Start 11/26/17 at 12:00 Active Scripts Active Reported FENTANYL 12mcg/hr (Fentanyl) 1 Each Patch.td72 1 Patch TP Q3DAYS Nexium Capsule (Esomeprazole Magnesium) 40 Mg Capsule.dr 40 Mg PO DAILYAC Bactrim 400-80 Mg Tablet (Sulfamethoxazole/Trimethoprim) 1 Each Tablet 1 Each PO BID 7 Days Voltaren (Diclofenac Sodium) 100 Gm Gel..gram. 2 Gm TP PRN Q6HRS PRN Senna (Sennosides) 8.8 Mg/5 Ml Syrup 8.8 Mg PO PRN DAILY PRN Zoloft (Sertraline Hcl) 50 Mg Tablet 1 Tab PO DAILY Zofran (Ondansetron Hcl) 4 Mg Tablet 1 Tab PO PRN Q6HRS PRN Hydrocodone-Apap 10-325 (Hydrocodone Bit/Acetaminophen) 1 Each Tablet 0.5 Tab PO PRN Q4HRS PRN Gabapentin 100 Mg Capsule 100 Mg PO QHS Ferrous Sulfate 325 Mg Tablet 1 Tab PO DAILY DURAGESIC 25mcg/hr (Fentanyl) 1 Each Patch.td72 1 Patch TP Q3DAYS Cetirizine Hcl 10 Mg Tablet 1 Tab PO DAILY Celebrex (Celecoxib) 100 Mg Capsule 1 Cap PO BID Calcium (Calcium Carbonate) 600 Mg Tablet 600 Mg PO BID Biotene (Saliva Substitution Combo No.9) 1,000 Ml Mouthwash 15 Ml MM TIDAFTMEAL Aspirin 81 Mg Tab.chew 1 Tab PO DAILY Aspercreme 10% Cream (Trolamine Salicylate/Aloe Vera) 35.4 Gm Cream..g. 35.4 Gm TP TID Acetaminophen 500 Mg Tablet 1 Tab PO QID PRN Xopenex (Levalbuterol Hcl) 0.63 Mg/3 Ml Vial.neb 1 Vial NEB PRN QID PRN Trazodone Hcl 50 Mg Tablet 1 Tab PO QHS Simethicone 40 Mg/0.6 Ml Drops.susp 40 Mg PO PRN Q4HRS PRN Robitussin Cough-Chest Dm Liq (Guaifenesin/Dextromethorphan) 237 Ml Liquid 20 Ml PO PRN Q4HRS PRN Plaquenil (Hydroxychloroquine Sulfate) 200 Mg Tablet 100 Mg PO BID Norvasc (Amlodipine Besylate) 10 Mg Tablet 10 Mg PO DAILY Miralax (Polyethylene Glycol 3350) 17 Gm Powd.pack 1 Packet PO BID Lasix (Furosemide) 20 Mg Tablet 10 Mg PO QMWF Multi Vitamin Daily (Multivitamin) 1 Each Tablet 1 Each PO DAILY Alendronate Sodium 70 Mg Tablet 1 Tab PO WEEKLY Losartan Potassium 100 Mg Tablet 100 Mg PO DAILY Vitals/I & O Vital Sign - Last 24 Hours 11/25/17 11/25/17 11/25/17 11/25/17 15:00 15:11 15:11 19:00 Temp 97.7 97.7 97.7 97.7 Pulse 68 84 Resp 18 18 B/P (MAP) 164/70 (101) 144/84 (104) Pulse Ox 92 91 O2 Delivery Room Air Room Air Room Air Room Air 9/11/25/17 11/26/17 11/26/17 20:00 23:00 03:04 07:00 Temp 98.0 98.1 98.1 98.0 98.1 98.1 Pulse 74 65 63 Resp 18 16 18 B/P (MAP) 161/69 (99) 145/70 (95) 151/68 (95) Pulse Ox 94 96 96 O2 Delivery Room Air Room Air Room Air Room Air 11/26/17 11/26/17 11/26/17 11/26/17 08:00 11:00 11:44 11:44 Temp 97.7 98.4 97.7 98.4 Pulse 74 61 Resp 18 B/P (MAP) 157/72 (100) Pulse Ox 96 95 O2 Delivery Room Air Room Air Room Air Intake and Output 11/25/17 11/25/17 11/26/17 15:00 23:00 07:00 Intake Total 500 ml Output Total 3 ml Balance 497 ml Nutrition Consultation Dietary Evaluation: Recommendations by RD: Increase Calorie Intake, Protein supplementation Comments: ensure enlive tid pt to benefit from an appetite stimulant Expected Outcomes/Goals: to meet > 75% est nutr needs Malnutrition Findings: Body Fat Depletion (Non Severe: Mild Depletion Weight Status: Underweight SILVESTRE EDWARD MD Nov 26, 2017 12:17
[2017-11-26] MEDS ORDERED: PROPOFOL 20 ML IV ONE (12:40)
--- NOTE | 2017-11-26 13:06 | PDOC4 ---
Operative Note Operative Note EGD Meds propofol per anesthesia Pre-op dx dysphagia post-op dx Zenkers diverticulum large non-erosive gastritis Plan consider ENT consult for repair. LIDA CONNER MD Nov 26, 2017 13:06
[2017-11-26] MEDS: traZODone 50 MG TABLET. PO SCH (20:43)
[2017-11-26] MEDS: GABAPENTIN 100 MG CAPSULE. PO SCH (20:44)
[2017-11-27] MEDS: IV RINGERS,LACTATED 1000ML 1,000 ML IV SCH (01:20)
[2017-11-27 03:00] VITALS: BP 154/84
[2017-11-27] MEDS: AMINO AC 3%/ELECTROLYTE/GLYCER 1,000 ML IV SCH ×2 (03:11→16:30)
[2017-11-27 05:41] LABS: BASO # 0.1 x10^3/uL (0.0-0.2); BASO % 1 % (0-3); EOS # 0.1 x10^3/uL (0.0-0.7); EOS % 1 % (0-3); HEMATOCRIT 38.5 % (36.0-47.0); HEMOGLOBIN 12.8 g/dL (12.0-15.5); LYMPH # 1.1 x10^3/uL (1.0-4.8); LYMPH % 11 % (24-48); MEAN CORPUSCULAR HEMOGLOBIN 27 pg (25-35); MEAN CORPUSCULAR HGB CONC 33 g/dL (31-37); MEAN CORPUSCULAR VOLUME 83 fL (79-100); MONO % 10 % (0-9); NEUT # 7.8 x10^3uL (1.8-7.7); NEUT % 78 % (31-73); PLATELET COUNT 289 x10^3/uL (140-400); RED BLOOD COUNT 4.66 x10^6/uL (3.50-5.40); RED CELL DISTRIBUTION WIDTH 16.7 % (11.5-14.5)
[2017-11-27 05:46] LABS: CALCIUM 8.5 mg/dL (8.5-10.1); CREATININE 0.6 mg/dL (0.6-1.0); GFR 94.6; POTASSIUM 3.8 mmol/L (3.5-5.1)
[2017-11-27] MEDS: PIPERACILLIN/TAZOBACTAM 2.25 GM in IV NORMAL SALINE 50ML 50 ML IV SCH ×2 (06:13→11:23)
[2017-11-27 07:00] VITALS: BP 154/58
[2017-11-27] MEDS: SALIVA STIMULANT AGENT 44ML SPRAY BOTTLE. PO SCH ×2 (07:33→12:48)
[2017-11-27] MEDS: METHYL SALICYLATE/MENTHOL TOPICAL OINTMENT 29GM TUBE. TP SCH ×2 (07:33→13:02)
[2017-11-27] MEDS: CELECOXIB 100 MG CAPSULE. PO SCH (08:22)
[2017-11-27] MEDS: ASPIRIN CHEWABLE 81 MG TABLET. PO SCH (08:22)
[2017-11-27] MEDS: LOSARTAN POTASSIUM 50 MG TABLET. PO SCH (08:22)
[2017-11-27] MEDS: FERROUS SULFATE 325 MG TABLET. PO SCH (08:25)
[2017-11-27] MEDS: HYDROXYCHLOROQUINE 200 MG TABLET PO SCH (08:25)
[2017-11-27] MEDS: MULTIVITAMIN with MINERAL TABLET. PO SCH (08:25)
[2017-11-27] MEDS: POLYETHYLENE GLYCOL 3350 17 GM PACKET. PO SCH (08:25)
[2017-11-27] MEDS: SERTRALINE 50 MG TABLET. PO SCH (08:25)
[2017-11-27] MEDS: CETIRIZINE HCL 10 MG TABLET. PO SCH (08:26)
[2017-11-27] MEDS: PANTOPRAZOLE IV PUSH 40 MG VIAL. IVP SCH (08:31)
--- NOTE | 2017-11-27 10:15 | PDOC ---
PROGRESS NOTES Chief Complaint Chief Complaint IMPRESSION: Progressive dyspnea. with aspiration likely Possible esophageal stricture , dysphagia and aspiration. Suspectmild dementia. 4. Arrhythmia, status post pacemaker implantation. htn stable systolic and grade 1 diastolic CHF, EF 40% plan: refusing ent consult AMA, Family wants her to go home soft diet fu with pulm on doxy some po meds cannot be given since NPO, dc amlodipine PT/ OT recommend SNF, but pt refused, wants HH History of Present Illness History of Present Illness no sob, feels ok ROS: no fever, chills, sob or chest pain video swallow eval shows Esophageal 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 Vitals Vitals Vital Signs Date Time Temp Pulse Resp B/P (MAP) Pulse Ox O2 Delivery O2 Flow Rate FiO2 11/27/17 09:51 20 95 Room Air 11/27/17 07:00 98.1 74 154/58 (90) 98.1 11/26/17 13:03 2 Physical Exam Physical Exam General: Alert, Oriented X3, Cooperative, No acute distress Heart: Regular rate (Paced), Normal S1, Normal S2, Other (3/6 systolic murmur to apex) Lungs: Crackles (bases) Abdomen: Soft, No tenderness Extremities: No clubbing, No cyanosis, No edema Skin: No breakdown, No significant lesion Labs LABS Laboratory Tests Test 11/27/17 04:20 White Blood Count 10.0 x10^3/uL (4.0-11.0) Red Blood Count 4.66 x10^6/uL (3.50-5.40) Hemoglobin 12.8 g/dL (12.0-15.5) Hematocrit 38.5 % (36.0-47.0) Mean Corpuscular Volume 83 fL (79-100) Mean Corpuscular Hemoglobin 27 pg (25-35) Mean Corpuscular Hemoglobin Concent 33 g/dL (31-37) Red Cell Distribution Width 16.7 % (11.5-14.5) Platelet Count 289 x10^3/uL (140-400) Neutrophils (%) (Auto) 78 % (31-73) Lymphocytes (%) (Auto) 11 % (24-48) Monocytes (%) (Auto) 10 % (0-9) Eosinophils (%) (Auto) 1 % (0-3) Basophils (%) (Auto) 1 % (0-3) Neutrophils # (Auto) 7.8 x10^3uL (1.8-7.7) Lymphocytes # (Auto) 1.1 x10^3/uL (1.0-4.8) Monocytes # (Auto) 1.0 x10^3/uL (0.0-1.1) Eosinophils # (Auto) 0.1 x10^3/uL (0.0-0.7) Basophils # (Auto) 0.1 x10^3/uL (0.0-0.2) Sodium Level 139 mmol/L (136-145) Potassium Level 3.8 mmol/L (3.5-5.1) Chloride Level 105 mmol/L (98-107) Carbon Dioxide Level 24 mmol/L (21-32) Anion Gap 10 (6-14) Blood Urea Nitrogen 12 mg/dL (7-20) Creatinine 0.6 mg/dL (0.6-1.0) Estimated GFR (Cockcroft-Gault) 94.6 Glucose Level 96 mg/dL (70-99) Calcium Level 8.5 mg/dL (8.5-10.1) Comment Review of Relevant I have reviewed the following items hilario (where applicable) has been applied. Labs Laboratory Tests Test 11/26/17 06:55 11/27/17 04:20 Sodium Level 137 mmol/L (136-145) 139 mmol/L (136-145) Potassium Level 3.8 mmol/L (3.5-5.1) 3.8 mmol/L (3.5-5.1) Chloride Level 105 mmol/L (98-107) 105 mmol/L (98-107) Carbon Dioxide Level 22 mmol/L (21-32) 24 mmol/L (21-32) Anion Gap 10 (6-14) 10 (6-14) Blood Urea Nitrogen 13 mg/dL (7-20) 12 mg/dL (7-20) Creatinine 0.6 mg/dL (0.6-1.0) 0.6 mg/dL (0.6-1.0) Estimated GFR (Cockcroft-Gault) 94.6 94.6 Glucose Level 97 mg/dL (70-99) 96 mg/dL (70-99) Calcium Level 8.0 mg/dL (8.5-10.1) 8.5 mg/dL (8.5-10.1) White Blood Count 10.0 x10^3/uL (4.0-11.0) Red Blood Count 4.66 x10^6/uL (3.50-5.40) Hemoglobin 12.8 g/dL (12.0-15.5) Hematocrit 38.5 % (36.0-47.0) Mean Corpuscular Volume 83 fL (79-100) Mean Corpuscular Hemoglobin 27 pg (25-35) Mean Corpuscular Hemoglobin Concent 33 g/dL (31-37) Red Cell Distribution Width 16.7 % (11.5-14.5) Platelet Count 289 x10^3/uL (140-400) Neutrophils (%) (Auto) 78 % (31-73) Lymphocytes (%) (Auto) 11 % (24-48) Monocytes (%) (Auto) 10 % (0-9) Eosinophils (%) (Auto) 1 % (0-3) Basophils (%) (Auto) 1 % (0-3) Neutrophils # (Auto) 7.8 x10^3uL (1.8-7.7) Lymphocytes # (Auto) 1.1 x10^3/uL (1.0-4.8) Monocytes # (Auto) 1.0 x10^3/uL (0.0-1.1) Eosinophils # (Auto) 0.1 x10^3/uL (0.0-0.7) Basophils # (Auto) 0.1 x10^3/uL (0.0-0.2) Laboratory Tests Test 11/27/17 04:20 White Blood Count 10.0 x10^3/uL (4.0-11.0) Red Blood Count 4.66 x10^6/uL (3.50-5.40) Hemoglobin 12.8 g/dL (12.0-15.5) Hematocrit 38.5 % (36.0-47.0) Mean Corpuscular Volume 83 fL (79-100) Mean Corpuscular Hemoglobin 27 pg (25-35) Mean Corpuscular Hemoglobin Concent 33 g/dL (31-37) Red Cell Distribution Width 16.7 % (11.5-14.5) Platelet Count 289 x10^3/uL (140-400) Neutrophils (%) (Auto) 78 % (31-73) Lymphocytes (%) (Auto) 11 % (24-48) Monocytes (%) (Auto) 10 % (0-9) Eosinophils (%) (Auto) 1 % (0-3) Basophils (%) (Auto) 1 % (0-3) Neutrophils # (Auto) 7.8 x10^3uL (1.8-7.7) Lymphocytes # (Auto) 1.1 x10^3/uL (1.0-4.8) Monocytes # (Auto) 1.0 x10^3/uL (0.0-1.1) Eosinophils # (Auto) 0.1 x10^3/uL (0.0-0.7) Basophils # (Auto) 0.1 x10^3/uL (0.0-0.2) Sodium Level 139 mmol/L (136-145) Potassium Level 3.8 mmol/L (3.5-5.1) Chloride Level 105 mmol/L (98-107) Carbon Dioxide Level 24 mmol/L (21-32) Anion Gap 10 (6-14) Blood Urea Nitrogen 12 mg/dL (7-20) Creatinine 0.6 mg/dL (0.6-1.0) Estimated GFR (Cockcroft-Gault) 94.6 Glucose Level 96 mg/dL (70-99) Calcium Level 8.5 mg/dL (8.5-10.1) Microbiology 11/21/17 Blood Culture - Final, Complete NO GROWTH AFTER 5 DAYS Medications Current Medications Furosemide (Lasix) 20 mg 1X ONCE IVP Last administered on 11/21/17at 18:03; Start 11/21/17 at 17:45; Stop 11/21/17 at 17:46; Status DC Ondansetron HCl (Zofran) 4 mg PRN Q8HRS PRN IV NAUSEA/VOMITING Last administered on 11/22/17at 15:05; Start 11/21/17 at 17:45; Stop 11/22/17 at 17:44 ; Status DC Acetaminophen (Tylenol) 650 mg PRN Q4HRS PRN PO FEVER Last administered on 11/22at 08:46; Start 11/21/17 at 17:45; Stop 11/22/17 at 14:18; Status DC Albuterol/ Ipratropium (Duoneb) 3 ml RTQID NEB Last administered on 11/22/17at 15:19; Start 11/21/17 at 20:00; Stop 11/22/17 at 19:59; Status DC Acetaminophen (Tylenol) 650 mg PRN Q6HRS PRN PO MILD PAIN; Start 11/22/17 at 00 :45; Status Cancel Calcium Carbonate/ Glycine (Oscal) 500 mg DAILY PO ; Start 11/22/17 at 09:00; Status Cancel Celecoxib (CeleBREX) 100 mg BID PO ; Start 11/22/17 at 09:00; Status Cancel Docusate Sodium (Colace) 100 mg PRN BID PRN PO CONSTIPATION 1ST CHOICE; Start 11/22/17 at 00:45; Status Cancel Fentanyl (Duragesic 25mcg/ Hr Patch) 1 patch Q72H TD ; Start 11/22/17 at 00:45; Status UNV Aspirin (Ecotrin) 81 mg DAILYWBKFT PO ; Start 11/22/17 at 08:00; Status Cancel Trimethoprim/ Sulfamethoxazole (Bactrim Ds) 0.5 tab BID PO ; Start 11/22/17 at 09:00; Stop 11/24/17 at 08:59; Status Cancel Cetirizine HCl (ZyrTEC) 10 mg DAILY PO ; Start 11/22/17 at 09:00; Status Cancel Ferrous Sulfate (Feosol) 325 mg DAILYWBKFT PO ; Start 11/22/17 at 08:00; Status Cancel Gabapentin (Neurontin) 100 mg HS PO ; Start 11/22/17 at 21:00; Status Cancel Acetaminophen/ Hydrocodone Bitart (Lortab 10/325) 0.5 tab PRN Q4HRS PRN PO SEVERE PAIN; Start 11/22/17 at 00:45; Status Cancel Furosemide (Lasix) 10 mg QMWF PO ; Start 11/23/17 at 16:00; Status Cancel Losartan Potassium (Cozaar) 100 mg DAILY PO ; Start 11/22/17 at 09:00; Status Cancel Polyethylene Glycol (miraLAX PACKET) 17 gm BID PO ; Start 11/22/17 at 09:00; Status Cancel Amlodipine Besylate (Norvasc) 10 mg DAILY PO ; Start 11/22/17 at 09:00; Status Cancel Hydroxychloroquine Sulfate (Plaquenil) 100 mg BID PO ; Start 11/22/17 at 09:00; Status Cancel Guaifenesin (Robitussin Dm) 5 ml PRN Q4HRS PRN PO COUGH 1ST CHOICE; Start 11/22 at 00:45; Status Cancel Sennosides (Senna) 8.6 mg PRN BID PRN PO CONSTIPATION 2ND CHOICE; Start at 00:45; Status Cancel Simethicone (Gas-X) 80 mg PRN Q4HRS PRN PO INDIGESTION; Start 11/22/17 at 00:45 ; Status Cancel Trazodone HCl (Desyrel) 50 mg QHS PO ; Start 11/22/17 at 21:00; Status Cancel Diclofenac Sodium (Voltaren) 1 angel PRN Q6HRS PRN TP TOPICAL PAIN; Start at 00:45; Status Cancel Sertraline HCl (Zoloft) 50 mg DAILY PO ; Start 11/22/17 at 09:00; Status Cancel Lactobacillus Rhamnosus (Culturelle) 1 cap BID PO ; Start 11/22/17 at 09:00; Status Cancel Piperacillin Sod/ Tazobactam Sod (Zosyn Per Pharmacy) 1 each PRN DAILY PRN MC SEE COMMENTS; Start 11/22/17 at 13:30 Piperacillin Sod/ Tazobactam Sod 2.25 gm/Sodium Chloride 50 ml @ 100 mls/hr Q6HRS IV Last administered on 11/27/17at 06:13; Start 11/22/17 at 13:30 Acetaminophen (Tylenol) 500 mg QID PRN PO MILD PAIN; Start 11/22/17 at 14:00 Amlodipine Besylate (Norvasc) 10 mg DAILY16 PO Last administered on 11/22/17at 16:31; Start 11/22/17 at 16:00; Stop 11/26/17 at 12:14; Status DC Aspirin (Children'S Aspirin) 81 mg DAILY PO Last administered on 11/23/17at 09: 09; Start 11/22/17 at 15:00 Celecoxib (CeleBREX) 100 mg BID PO Last administered on 11/23/17 09:10; Start 11/22/17 at 21:00 Cetirizine HCl (ZyrTEC) 10 mg DAILY PO Last administered on 11/23/17 09:10; Start 11/22/17 at 15:00 Diclofenac Sodium (Voltaren) 2 angel PRN Q6HRS PRN TP PAIN TOPICAL; Start at 14:00 Fentanyl (Duragesic 25mcg/ Hr Patch) 1 patch Q3DAYS TD Last administered on 11:09; Start 11/22/17 at 15:00 Fentanyl (Duragesic 12mcg/ Hr Patch) 1 patch Q3DAYS TD Last administered on 11:09; Start 11/22/17 at 15:00 Ferrous Sulfate (Feosol) 325 mg DAILY PO Last administered on 11/23/17 09:10; Start 11/22/17 at 15:00 Furosemide (Lasix) 10 mg QMWF@0900 PO Last administered on 11/23/17 09:09; Start 11/23/17 at 09:00 Gabapentin (Neurontin) 100 mg QHS PO Last administered on 11/22/17 21:33; Start 11/22/17 at 21:00 Sertraline HCl (Zoloft) 50 mg DAILY PO Last administered on 11/23/17 09:09; Start 11/22/17 at 15:00 Simethicone (Gas-X) 40 mg PRN Q4HRS PRN PO GAS / BLOATING; Start 11/22/17 at 14 :15 Trazodone HCl (Desyrel) 50 mg QHS PO Last administered on 11/22/17at 21:33; Start 11/22/17 at 21:00 Guaifenesin (Robitussin Dm) 10 ml PRN Q4HRS PRN PO COUGH; Start 11/22/17 at 14: 30 Acetaminophen/ Hydrocodone Bitart (Lortab 10/325) 0.5 tab PRN Q4HRS PRN PO MOD TO SEVERE PAIN; Start 11/22/17 at 14:30 Hydroxychloroquine Sulfate (Plaquenil) 100 mg BID PO Last administered on 09:09; Start 11/22/17 at 21:00 Albuterol Sulfate (Ventolin Neb Soln) 2.5 mg PRN Q6HRS PRN NEB SHORTNESS OF BREATH; Start 11/22/17 at 14:30 Losartan Potassium (Cozaar) 100 mg DAILY PO Last administered on 11/23/17 09: 10; Start 11/23/17 at 09:00 Multivitamins (Thera M Plus) 1 tab DAILY PO Last administered on 11/23/17at 09: 09; Start 11/22/17 at 15:00 Ondansetron HCl (Zofran Odt) 4 mg PRN Q8HRS PRN PO NAUSEA/VOMITING; Start 11/22 at 14:30 Polyethylene Glycol (miraLAX PACKET) 17 gm BID PO ; Start 11/22/17 at 21:00 Saliva Substitute (Biotene Moisturizing Mouth) 2 spray TIDAFTMEAL PO Last administered on 11/27/17at 07:33; Start 11/22/17 at 18:00 Sennosides (Senna) 8.6 mg PRN DAILY PRN PO CONSTIPATION; Start 11/22/17 at 14: 30 Multi-Ingredient Ointment (Analgesic [place]) 1 angel TID TP Last administered on 07:33; Start 11/22/17 at 21:00 Alprazolam (Xanax) 0.25 mg PRN Q8HRS PRN PO ANXIETY / AGITATION; Start at 14:00 Barium Sulfate (Varibar Thin Liquid Apple) 148 gm 1X ONCE PO Last administered on 11/23/17at 11:23; Start 11/23/17 at 11:00; Stop 11/23/17 at 11:01 ; Status DC Pantoprazole Sodium (PROTONIX VIAL for IV PUSH) 40 mg DAILYAC IVP Last administered on 11/27/17at 08:31; Start 11/24/17 at 07:30 Sodium Chloride 1,000 ml @ 100 mls/hr Q10H IV Last administered on 11/24/17at 03:15; Start 11/23/17 at 15:15; Stop 11/24/17 at 13:28; Status DC Diphenhydramine HCl (Benadryl) 25 mg Q4HRS PRN IVP ALLERGIES Last administered on 11/24/17at 21:13; Start 11/23/17 at 15:15 Ondansetron HCl (Zofran) 4 mg PRN Q6HRS PRN IV NAUSEA/VOMITING Last administered on 11/24/17at 12:51; Start 11/23/17 at 15:15 Clonidine HCl (Catapres Tts-1) 1 patch WEEKLY TD Last administered on at 15:37; Start 11/23/17 at 16:00 Enalaprilat (Vasotec Inj) 1.25 mg PRN Q6HRS PRN IVP HYPERTENSION, 2ND CHOICE; Start 11/23/17 at 16:30 Amino Acids/ Glycerin/ Electrolytes 1,000 ml @ 80 mls/hr [id number] IV Last administered on 11/27/17at 03:11; Start 11/24/17 at 13:30 Morphine Sulfate (Morphine Sulfate) 2 mg PRN Q2HR PRN IV PAIN Last administered on 11/27/17at 09:51; Start 11/24/17 at 13:30 Labetalol HCl (Normodyne Iv Push) 20 mg PRN Q2HR PRN IVP GIVE FOR SBP > 160, 1ST CHOICE; Start 11/25/17 at 08:45 Labetalol HCl (Normodyne Iv Push) 20 mg 1X ONCE IVP Last administered on at 11:09; Start 11/25/17 at 09:00; Stop 11/25/17 at 09:01; Status DC Sodium Chloride (Normal Saline Flush) 3 ml QSHIFT PRN IV AFTER MEDS AND BLOOD DRAWS; Start 11/25/17 at 14:15 Lorazepam (Ativan) 1 mg PRN Q4HRS PRN IV ANXIETY / AGITATION Last administered on 11/26/17at 21:52; Start 11/25/17 at 16:15 Ringer's Solution 1,000 ml @ 75 mls/hr [id number] IV Last administered on at 11:59; Start 11/26/17 at 12:00 Propofol 20 ml @ As Directed STK-MED ONCE IV ; Start 11/26/17 at 12:40; Stop at 12:41; Status DC Active Scripts Active Reported FENTANYL 12mcg/hr (Fentanyl) 1 Each Patch.td72 1 Patch TP Q3DAYS Nexium Capsule (Esomeprazole Magnesium) 40 Mg Capsule.dr 40 Mg PO DAILYAC Bactrim 400-80 Mg Tablet (Sulfamethoxazole/Trimethoprim) 1 Each Tablet 1 Each PO BID 7 Days Voltaren (Diclofenac Sodium) 100 Gm Gel..gram. 2 Gm TP PRN Q6HRS PRN Senna (Sennosides) 8.8 Mg/5 Ml Syrup 8.8 Mg PO PRN DAILY PRN Zoloft (Sertraline Hcl) 50 Mg Tablet 1 Tab PO DAILY Zofran (Ondansetron Hcl) 4 Mg Tablet 1 Tab PO PRN Q6HRS PRN Hydrocodone-Apap 10-325 (Hydrocodone Bit/Acetaminophen) 1 Each Tablet 0.5 Tab PO PRN Q4HRS PRN Gabapentin 100 Mg Capsule 100 Mg PO QHS Ferrous Sulfate 325 Mg Tablet 1 Tab PO DAILY DURAGESIC 25mcg/hr (Fentanyl) 1 Each Patch.td72 1 Patch TP Q3DAYS Cetirizine Hcl 10 Mg Tablet 1 Tab PO DAILY Celebrex (Celecoxib) 100 Mg Capsule 1 Cap PO BID Calcium (Calcium Carbonate) 600 Mg Tablet 600 Mg PO BID Biotene (Saliva Substitution Combo No.9) 1,000 Ml Mouthwash 15 Ml MM TIDAFTMEAL Aspirin 81 Mg Tab.chew 1 Tab PO DAILY Aspercreme 10% Cream (Trolamine Salicylate/Aloe Vera) 35.4 Gm Cream..g. 35.4 Gm TP TID Acetaminophen 500 Mg Tablet 1 Tab PO QID PRN Xopenex (Levalbuterol Hcl) 0.63 Mg/3 Ml Vial.neb 1 Vial NEB PRN QID PRN Trazodone Hcl 50 Mg Tablet 1 Tab PO QHS Simethicone 40 Mg/0.6 Ml Drops.susp 40 Mg PO PRN Q4HRS PRN Robitussin Cough-Chest Dm Liq (Guaifenesin/Dextromethorphan) 237 Ml Liquid 20 Ml PO PRN Q4HRS PRN Plaquenil (Hydroxychloroquine Sulfate) 200 Mg Tablet 100 Mg PO BID Norvasc (Amlodipine Besylate) 10 Mg Tablet 10 Mg PO DAILY Miralax (Polyethylene Glycol 3350) 17 Gm Powd.pack 1 Packet PO BID Lasix (Furosemide) 20 Mg Tablet 10 Mg PO QMWF Multi Vitamin Daily (Multivitamin) 1 Each Tablet 1 Each PO DAILY Alendronate Sodium 70 Mg Tablet 1 Tab PO WEEKLY Losartan Potassium 100 Mg Tablet 100 Mg PO DAILY Vitals/I & O Vital Sign - Last 24 Hours 11/26/17 11/26/17 11/26/17 11/26/17 11:00 11:44 11:44 13:03 Temp 97.7 98.4 97.6 97.7 98.4 97.6 Pulse 74 61 60 Resp 16 18 16 B/P (MAP) 157/72 (100) 118/61 Pulse Ox 96 95 99 O2 Delivery Room Air Room Air Nasal Cannula O2 Flow Rate 2 11/26/17 11/26/17 11/26/17 11/26/17 13:18 13:30 14:15 14:45 Pulse 60 63 70 63 Resp 20 16 B/P (MAP) 119/64 166/74 164/71 (102) 174/68 (103) Pulse Ox 99 99 O2 Delivery Room Air Room Air 11/26/17 11/26/17 11/26/17 11/26/17 15:15 15:45 19:00 20:00 Temp 97.7 97.7 Pulse 72 68 Resp 18 B/P (MAP) 182/75 (110) 160/62 (94) Pulse Ox 94 O2 Delivery Room Air Room Air 11/26/17 11/27/17 11/27/17 11/27/17 23:00 03:00 07:00 09:51 Temp 97.9 97.9 98.1 97.9 97.9 98.1 Pulse 86 73 74 Resp 18 18 18 20 B/P (MAP) 163/75 (104) 154/84 (107) 154/58 (90) Pulse Ox 92 95 96 95 O2 Delivery Room Air Room Air Room Air Room Air Intake and Output 11/26/17 11/26/17 11/27/17 15:00 23:00 07:00 Intake Total 800 ml 0 ml Balance 800 ml 0 ml Nutrition Consultation Dietary Evaluation: Recommendations by RD: Increase Calorie Intake, Protein supplementation Comments: Continue PPN for short-term nutrition goals Pt will need tube for TF pending goals of care, NPO/dysphagia per LEARNING SERVICES COORDINATOR Expected Outcomes/Goals: to meet > 75% est nutr needs - not met, new goal established New goal 11/26: Nutrition support per goals of care Malnutrition Findings: Body Fat Depletion (Non Severe: Mild Depletion Weight Status: Underweight RICARDO MONREAL MD Nov 27, 2017 10:15
[2017-11-27 11:00] VITALS: BP 166/60
--- NOTE | 2017-11-27 11:40 | PDOC ---
Objective: Objective: Called by RN this morning - family/pt interested in ENT eval for surgery. Still NPO on PPN. Two daughters present w/ questions. RN mentions diarrhea - 3 stools yesterday, 1 so far today - apparently an issue over the weekend, C Diff neg. Vital Signs: Vital Signs Date Time Temp Pulse Resp B/P (MAP) Pulse Ox O2 Delivery O2 Flow Rate FiO2 11/27/17 10:21 20 95 Room Air 11/27/17 07:00 98.1 74 154/58 (90) 98.1 11/26/17 13:03 2 Labs: Laboratory Tests Test 11/27/17 04:20 White Blood Count 10.0 x10^3/uL Red Blood Count 4.66 x10^6/uL Hemoglobin 12.8 g/dL Hematocrit 38.5 % Mean Corpuscular Volume 83 fL Mean Corpuscular Hemoglobin 27 pg Mean Corpuscular Hemoglobin Concent 33 g/dL Red Cell Distribution Width 16.7 % Platelet Count 289 x10^3/uL Neutrophils (%) (Auto) 78 % Lymphocytes (%) (Auto) 11 % Monocytes (%) (Auto) 10 % Eosinophils (%) (Auto) 1 % Basophils (%) (Auto) 1 % Neutrophils # (Auto) 7.8 x10^3uL Lymphocytes # (Auto) 1.1 x10^3/uL Monocytes # (Auto) 1.0 x10^3/uL Eosinophils # (Auto) 0.1 x10^3/uL Basophils # (Auto) 0.1 x10^3/uL Sodium Level 139 mmol/L Potassium Level 3.8 mmol/L Chloride Level 105 mmol/L Carbon Dioxide Level 24 mmol/L Anion Gap 10 Blood Urea Nitrogen 12 mg/dL Creatinine 0.6 mg/dL Estimated GFR (Cockcroft-Gault) 94.6 Glucose Level 96 mg/dL Calcium Level 8.5 mg/dL Imaging: EGD Zenkers diverticulum large non-erosive gastritis PE: GEN: NAD LUNGS: CTAB HEART: RRR ABD: NABS, S/ND/NT NEURO/PSYCH: A & O 3 A/P: Dysphagia, large Zenker's diverticulum -- Significant time spent with family and RN - ultimately, the pt apparently changed her mind, wants to eat and go home, does not wish to pursue surgery. Daughters and pt aware of swallowing risks - abnormal swallow eval, aspiration, etc. Also discussed EGD findings in detail. Understanding the associated risks , they would like for her to eat and look to discharge. I did recommend a palliative care discussion but they do not wish to pursue at this time. Reviewed w/ Dr. Nury LIRA. Try Imodium PRN for diarrhea. MAAME OLMEDO Nov 27, 2017 11:40
[2017-11-27] MEDS ORDERED: LOPERAMIDE 2 MG CAPSULE PO PRN (11:45)
--- NOTE | 2017-11-27 13:57 | PDOC ---
PULMONARY PROGRESS NOTES Subjective feeling better, sob is better, has cough, no pain Vitals Vital Signs Date Time Temp Pulse Resp B/P (MAP) Pulse Ox O2 Delivery O2 Flow Rate FiO2 11/27/17 13:02 20 96 Room Air 11/27/17 11:00 97.9 93 166/60 (95) 97.9 11/26/17 13:03 2 ROS: No Nausea, No Chest Pain, No Abdominal Pain, No Increase Cough General: Alert, Oriented X4 HEENT: Other (nc at perrl nose throat clear) Lungs: Other (decrease bases) Cardiovascular: S1, S2 Abdomen: Soft, Non-tender Neuro Exam: Alert Extremities: No Edema Skin: Warm Labs Laboratory Tests Test 11/26/17 06:55 11/27/17 04:20 Sodium Level 137 mmol/L (136-145) 139 mmol/L (136-145) Potassium Level 3.8 mmol/L (3.5-5.1) 3.8 mmol/L (3.5-5.1) Chloride Level 105 mmol/L (98-107) 105 mmol/L (98-107) Carbon Dioxide Level 22 mmol/L (21-32) 24 mmol/L (21-32) Anion Gap 10 (6-14) 10 (6-14) Blood Urea Nitrogen 13 mg/dL (7-20) 12 mg/dL (7-20) Creatinine 0.6 mg/dL (0.6-1.0) 0.6 mg/dL (0.6-1.0) Estimated GFR (Cockcroft-Gault) 94.6 94.6 Glucose Level 97 mg/dL (70-99) 96 mg/dL (70-99) Calcium Level 8.0 mg/dL (8.5-10.1) 8.5 mg/dL (8.5-10.1) White Blood Count 10.0 x10^3/uL (4.0-11.0) Red Blood Count 4.66 x10^6/uL (3.50-5.40) Hemoglobin 12.8 g/dL (12.0-15.5) Hematocrit 38.5 % (36.0-47.0) Mean Corpuscular Volume 83 fL (79-100) Mean Corpuscular Hemoglobin 27 pg (25-35) Mean Corpuscular Hemoglobin Concent 33 g/dL (31-37) Red Cell Distribution Width 16.7 % (11.5-14.5) Platelet Count 289 x10^3/uL (140-400) Neutrophils (%) (Auto) 78 % (31-73) Lymphocytes (%) (Auto) 11 % (24-48) Monocytes (%) (Auto) 10 % (0-9) Eosinophils (%) (Auto) 1 % (0-3) Basophils (%) (Auto) 1 % (0-3) Neutrophils # (Auto) 7.8 x10^3uL (1.8-7.7) Lymphocytes # (Auto) 1.1 x10^3/uL (1.0-4.8) Monocytes # (Auto) 1.0 x10^3/uL (0.0-1.1) Eosinophils # (Auto) 0.1 x10^3/uL (0.0-0.7) Basophils # (Auto) 0.1 x10^3/uL (0.0-0.2) Laboratory Tests Test 11/27/17 04:20 White Blood Count 10.0 x10^3/uL (4.0-11.0) Red Blood Count 4.66 x10^6/uL (3.50-5.40) Hemoglobin 12.8 g/dL (12.0-15.5) Hematocrit 38.5 % (36.0-47.0) Mean Corpuscular Volume 83 fL (79-100) Mean Corpuscular Hemoglobin 27 pg (25-35) Mean Corpuscular Hemoglobin Concent 33 g/dL (31-37) Red Cell Distribution Width 16.7 % (11.5-14.5) Platelet Count 289 x10^3/uL (140-400) Neutrophils (%) (Auto) 78 % (31-73) Lymphocytes (%) (Auto) 11 % (24-48) Monocytes (%) (Auto) 10 % (0-9) Eosinophils (%) (Auto) 1 % (0-3) Basophils (%) (Auto) 1 % (0-3) Neutrophils # (Auto) 7.8 x10^3uL (1.8-7.7) Lymphocytes # (Auto) 1.1 x10^3/uL (1.0-4.8) Monocytes # (Auto) 1.0 x10^3/uL (0.0-1.1) Eosinophils # (Auto) 0.1 x10^3/uL (0.0-0.7) Basophils # (Auto) 0.1 x10^3/uL (0.0-0.2) Sodium Level 139 mmol/L (136-145) Potassium Level 3.8 mmol/L (3.5-5.1) Chloride Level 105 mmol/L (98-107) Carbon Dioxide Level 24 mmol/L (21-32) Anion Gap 10 (6-14) Blood Urea Nitrogen 12 mg/dL (7-20) Creatinine 0.6 mg/dL (0.6-1.0) Estimated GFR (Cockcroft-Gault) 94.6 Glucose Level 96 mg/dL (70-99) Calcium Level 8.5 mg/dL (8.5-10.1) Medications Active Scripts Medications Dose Route/Sig Max Daily Dose Days Date Category FENTANYL 12mcg/hr (Fentanyl) 1 Each Patch.td72 1 Patch TP Q3DAYS 11/22/17 Reported Nexium Capsule (Esomeprazole Magnesium) 40 Mg Capsule.dr 40 Mg PO DAILYAC 11/22/17 Reported Bactrim 400-80 Mg Tablet (Sulfamethoxazole/Trimethoprim) 1 Each Tablet 1 Each PO BID 7 11/22/17 Reported Voltaren (Diclofenac Sodium) 100 Gm Gel..gram. 2 Gm TP PRN Q6HRS PRN 11/22/17 Reported Senna (Sennosides) 8.8 Mg/5 Ml Syrup 8.8 Mg PO PRN DAILY PRN 11/22/17 Reported Zoloft (Sertraline Hcl) 50 Mg Tablet 1 Tab PO DAILY 11/22/17 Reported Zofran (Ondansetron Hcl) 4 Mg Tablet 1 Tab PO PRN Q6HRS PRN 11/22/17 Reported Hydrocodone-Apap 10-325 (Hydrocodone Bit/Acetaminophen) 1 Each Tablet 0.5 Tab PO PRN Q4HRS PRN 11/22/17 Reported Gabapentin 100 Mg Capsule 100 Mg PO QHS 11/22/17 Reported Ferrous Sulfate 325 Mg Tablet 1 Tab PO DAILY 11/22/17 Reported DURAGESIC 25mcg/hr (Fentanyl) 1 Each Patch.td72 1 Patch TP Q3DAYS 11/22/17 Reported Cetirizine Hcl 10 Mg Tablet 1 Tab PO DAILY 11/22/17 Reported Celebrex (Celecoxib) 100 Mg Capsule 1 Cap PO BID 11/22/17 Reported Calcium (Calcium Carbonate) 600 Mg Tablet 600 Mg PO BID 11/22/17 Reported Biotene (Saliva Substitution Combo No.9) 1,000 Ml Mouthwash 15 Ml MM TIDAFTMEAL 11/22/17 Reported Aspirin 81 Mg Tab.chew 1 Tab PO DAILY 11/22/17 Reported Aspercreme 10% Cream (Trolamine Salicylate/Aloe Vera) 35.4 Gm Cream..g. 35.4 Gm TP TID 11/22/17 Reported Acetaminophen 500 Mg Tablet 1 Tab PO QID PRN 11/22/17 Reported Xopenex (Levalbuterol Hcl) 0.63 Mg/3 Ml Vial.neb 1 Vial NEB PRN QID PRN 11/22/17 Reported Trazodone Hcl 50 Mg Tablet 1 Tab PO QHS 11/22/17 Reported Simethicone 40 Mg/0.6 Ml Drops.susp 40 Mg PO PRN Q4HRS PRN 11/22/17 Reported Robitussin Cough-Chest Dm Liq (Guaifenesin/Dextromethorphan) 237 Ml Liquid 20 Ml PO PRN Q4HRS PRN 11/22/17 Reported Plaquenil (Hydroxychloroquine Sulfate) 200 Mg Tablet 100 Mg PO BID 11/22/17 Reported Norvasc (Amlodipine Besylate) 10 Mg Tablet 10 Mg PO DAILY 11/22/17 Reported Miralax (Polyethylene Glycol 3350) 17 Gm Powd.pack 1 Packet PO BID 11/22/17 Reported Lasix (Furosemide) 20 Mg Tablet 10 Mg PO QMWF 11/22/17 Reported Multi Vitamin Daily (Multivitamin) 1 Each Tablet 1 Each PO DAILY 01/07/15 Reported Alendronate Sodium 70 Mg Tablet 1 Tab PO WEEKLY 12/11/14 Reported Losartan Potassium 100 Mg Tablet 100 Mg PO DAILY 11/25/14 Reported Impression . 1. Progressive dyspnea. CXR 11/21 stable. symptoms resolved. 2. Possible aspiration. 3. Suspect dementia. 4. Arrhythmia, status post pacemaker implantation. 5. 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 This results in stasis of the ingested materials in the lower cervical esophagus with back flow and intermittent aspiration. Upper endoscopic evaluation is suggested. Plan . elevate hob ENT consult rec by GI Pt wants to eat PO cont ANTIBX. change to PO doxy 02 titration protonix iv discussed w pt SHI ALEMAN MD Nov 27, 2017 13:57
--- NOTE | 2017-11-27 15:16 | PDOC3 ---
Discharge Summary Date of Admission: Nov 21, 2017 Date of Discharge: Nov 27, 2017 Follow-Up: 1-2 days Admitting Diagnosis comment: Chief Complaint Chief Complaint IMPRESSION: Progressive dyspnea. with aspiration likely Possible esophageal stricture , dysphagia and aspiration. Suspectmild dementia. 4. Arrhythmia, status post pacemaker implantation. 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 Vitals Vitals Vital Signs Date Time Temp Pulse Resp B/P (MAP) Pulse Ox O2 Delivery O2 Flow Rate FiO2 11/27/17 09:51 20 95 Room Air 11/27/17 07:00 98.1 74 154/58 (90) 98.1 11/26/17 13:03 2 Physical Exam Physical Exam General: confused Cooperative, No acute distress Heart: Regular rate (Paced), Normal S1, Normal S2, Other (3/6 systolic murmur to apex) Lungs: Crackles (bases) Abdomen: Soft, No tenderness Extremities: No clubbing, No cyanosis, No edema Skin: No breakdown, No significant lesion FINAL DIAGNOSIS discharge dx Chief Complaint IMPRESSION: Progressive dyspnea. with aspiration likely Possible esophageal stricture , dysphagia and aspiration. Suspect mild dementia. 4. Arrhythmia, status post pacemaker implantation. 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 Vitals Vitals Vital Signs Date Time Temp Pulse Resp B/P (MAP) Pulse Ox O2 Delivery O2 Flow Rate FiO2 11/27/17 09:51 20 95 Room Air 11/27/17 07:00 98.1 74 154/58 (90) 98.1 11/26/17 13:03 2 Physical Exam Physical Exam General: confused Cooperative, No acute distress Heart: Regular rate (Paced), Normal S1, Normal S2, Other (3/6 systolic murmur to apex) Lungs: Crackles (bases) Abdomen: Soft, No tenderness Extremities: No clubbing, No cyanosis, No edema Skin: No breakdown, No significant lesion Brief Hospital Course Ms. Krishnamurthy is a 87 old [sex] who presented with [ ] CONDITION AT DISCHARGE: Comment (guarded) Discharge Medications Current Medications Furosemide (Lasix) 20 mg 1X ONCE IVP Last administered on 11/21/17at 18:03; Start 11/21/17 at 17:45; Stop 11/21/17 at 17:46; Status DC Ondansetron HCl (Zofran) 4 mg PRN Q8HRS PRN IV NAUSEA/VOMITING Last administered on 11/22/17at 15:05; Start 11/21/17 at 17:45; Stop 11/22/17 at 17:44 ; Status DC Acetaminophen (Tylenol) 650 mg PRN Q4HRS PRN PO FEVER Last administered on 11/22at 08:46; Start 11/21/17 at 17:45; Stop 11/22/17 at 14:18; Status DC Albuterol/ Ipratropium (Duoneb) 3 ml RTQID NEB Last administered on 11/22/17at 15:19; Start 11/21/17 at 20:00; Stop 11/22/17 at 19:59; Status DC Acetaminophen (Tylenol) 650 mg PRN Q6HRS PRN PO MILD PAIN; Start 11/22/17 at 00 :45; Status Cancel Calcium Carbonate/ Glycine (Oscal) 500 mg DAILY PO ; Start 11/22/17 at 09:00; Status Cancel Celecoxib (CeleBREX) 100 mg BID PO ; Start 11/22/17 at 09:00; Status Cancel Docusate Sodium (Colace) 100 mg PRN BID PRN PO CONSTIPATION 1ST CHOICE; Start 11/22/17 at 00:45; Status Cancel Fentanyl (Duragesic 25mcg/ Hr Patch) 1 patch Q72H TD ; Start 11/22/17 at 00:45; Status UNV Aspirin (Ecotrin) 81 mg DAILYWBKFT PO ; Start 11/22/17 at 08:00; Status Cancel Trimethoprim/ Sulfamethoxazole (Bactrim Ds) 0.5 tab BID PO ; Start 11/22/17 at 09:00; Stop 11/24/17 at 08:59; Status Cancel Cetirizine HCl (ZyrTEC) 10 mg DAILY PO ; Start 11/22/17 at 09:00; Status Cancel Ferrous Sulfate (Feosol) 325 mg DAILYWBKFT PO ; Start 11/22/17 at 08:00; Status Cancel Gabapentin (Neurontin) 100 mg HS PO ; Start 11/22/17 at 21:00; Status Cancel Acetaminophen/ Hydrocodone Bitart (Lortab 10/325) 0.5 tab PRN Q4HRS PRN PO SEVERE PAIN; Start 11/22/17 at 00:45; Status Cancel Furosemide (Lasix) 10 mg QMWF PO ; Start 11/23/17 at 16:00; Status Cancel Losartan Potassium (Cozaar) 100 mg DAILY PO ; Start 11/22/17 at 09:00; Status Cancel Polyethylene Glycol (miraLAX PACKET) 17 gm BID PO ; Start 11/22/17 at 09:00; Status Cancel Amlodipine Besylate (Norvasc) 10 mg DAILY PO ; Start 11/22/17 at 09:00; Status Cancel Hydroxychloroquine Sulfate (Plaquenil) 100 mg BID PO ; Start 11/22/17 at 09:00; Status Cancel Guaifenesin (Robitussin Dm) 5 ml PRN Q4HRS PRN PO COUGH 1ST CHOICE; Start 11/22 at 00:45; Status Cancel Sennosides (Senna) 8.6 mg PRN BID PRN PO CONSTIPATION 2ND CHOICE; Start at 00:45; Status Cancel Simethicone (Gas-X) 80 mg PRN Q4HRS PRN PO INDIGESTION; Start 11/22/17 at 00:45 ; Status Cancel Trazodone HCl (Desyrel) 50 mg QHS PO ; Start 11/22/17 at 21:00; Status Cancel Diclofenac Sodium (Voltaren) 1 angel PRN Q6HRS PRN TP TOPICAL PAIN; Start at 00:45; Status Cancel Sertraline HCl (Zoloft) 50 mg DAILY PO ; Start 11/22/17 at 09:00; Status Cancel Lactobacillus Rhamnosus (Culturelle) 1 cap BID PO ; Start 11/22/17 at 09:00; Status Cancel Piperacillin Sod/ Tazobactam Sod (Zosyn Per Pharmacy) 1 each PRN DAILY PRN MC SEE COMMENTS; Start 11/22/17 at 13:30 Piperacillin Sod/ Tazobactam Sod 2.25 gm/Sodium Chloride 50 ml @ 100 mls/hr Q6HRS IV Last administered on 11/27/17at 11:23; Start 11/22/17 at 13:30; Stop at 13:10; Status DC Acetaminophen (Tylenol) 500 mg QID PRN PO MILD PAIN; Start 11/22/17 at 14:00 Amlodipine Besylate (Norvasc) 10 mg DAILY16 PO Last administered on 11/22/17at 16:31; Start 11/22/17 at 16:00; Stop 11/26/17 at 12:14; Status DC Aspirin (Children'S Aspirin) 81 mg DAILY PO Last administered on 11/23/17at 09: 09; Start 11/22/17 at 15:00 Celecoxib (CeleBREX) 100 mg BID PO Last administered on 11/23/17at 09:10; Start 11/22/17 at 21:00 Cetirizine HCl (ZyrTEC) 10 mg DAILY PO Last administered on 11/23/17at 09:10; Start 11/22/17 at 15:00 Diclofenac Sodium (Voltaren) 2 angel PRN Q6HRS PRN TP PAIN TOPICAL; Start at 14:00 Fentanyl (Duragesic 25mcg/ Hr Patch) 1 patch Q3DAYS TD Last administered on at 11:09; Start 11/22/17 at 15:00 Fentanyl (Duragesic 12mcg/ Hr Patch) 1 patch Q3DAYS TD Last administered on at 11:09; Start 11/22/17 at 15:00 Ferrous Sulfate (Feosol) 325 mg DAILY PO Last administered on 11/23/17 09:10; Start 11/22/17 at 15:00 Furosemide (Lasix) 10 mg QMWF@0900 PO Last administered on 11/23/17 09:09; Start 11/23/17 at 09:00 Gabapentin (Neurontin) 100 mg QHS PO Last administered on 11/22/17 21:33; Start 11/22/17 at 21:00 Sertraline HCl (Zoloft) 50 mg DAILY PO Last administered on 11/23/17 09:09; Start 11/22/17 at 15:00 Simethicone (Gas-X) 40 mg PRN Q4HRS PRN PO GAS / BLOATING; Start 11/22/17 at 14 :15 Trazodone HCl (Desyrel) 50 mg QHS PO Last administered on 11/22/17 21:33; Start 11/22/17 at 21:00 Guaifenesin (Robitussin Dm) 10 ml PRN Q4HRS PRN PO COUGH; Start 11/22/17 at 14: 30 Acetaminophen/ Hydrocodone Bitart (Lortab 10/325) 0.5 tab PRN Q4HRS PRN PO MOD TO SEVERE PAIN Last administered on 11/27/17 13:02; Start 11/22/17 at 14:30 Hydroxychloroquine Sulfate (Plaquenil) 100 mg BID PO Last administered on 09:09; Start 11/22/17 at 21:00 Albuterol Sulfate (Ventolin Neb Soln) 2.5 mg PRN Q6HRS PRN NEB SHORTNESS OF BREATH; Start 11/22/17 at 14:30 Losartan Potassium (Cozaar) 100 mg DAILY PO Last administered on 11/23/17 09: 10; Start 11/23/17 at 09:00 Multivitamins (Thera M Plus) 1 tab DAILY PO Last administered on 11/23/17 09: 09; Start 11/22/17 at 15:00 Ondansetron HCl (Zofran Odt) 4 mg PRN Q8HRS PRN PO NAUSEA/VOMITING; Start 11/22 at 14:30 Polyethylene Glycol (miraLAX PACKET) 17 gm BID PO ; Start 11/22/17 at 21:00; Stop 11/27/17 at 11:41; Status DC Saliva Substitute (Biotene Moisturizing Mouth) 2 spray TIDAFTMEAL PO Last administered on 11/27/17 12:48; Start 11/22/17 at 18:00 Sennosides (Senna) 8.6 mg PRN DAILY PRN PO CONSTIPATION; Start 11/22/17 at 14: 30; Stop 11/27/17 at 11:41; Status DC Multi-Ingredient Ointment (Analgesic [place]) 1 angel TID TP Last administered on at 13:02; Start 11/22/17 at 21:00 Alprazolam (Xanax) 0.25 mg PRN Q8HRS PRN PO ANXIETY / AGITATION; Start at 14:00 Barium Sulfate (Varibar Thin Liquid [place]) 148 gm 1X ONCE PO Last administered on 11/23/17 11:23; Start 11/23/17 at 11:00; Stop 11/23/17 at 11:01 ; Status DC Pantoprazole Sodium (PROTONIX VIAL for IV PUSH) 40 mg DAILYAC IVP Last administered on 11/27/17at 08:31; Start 11/24/17 at 07:30; Stop 11/27/17 at 11:41 ; Status DC Sodium Chloride 1,000 ml @ 100 mls/hr Q10H IV Last administered on 11/24/17 03:15; Start 11/23/17 at 15:15; Stop 11/24/17 at 13:28; Status DC Diphenhydramine HCl (Benadryl) 25 mg Q4HRS PRN IVP ALLERGIES Last administered on 11/24/17at 21:13; Start 11/23/17 at 15:15 Ondansetron HCl (Zofran) 4 mg PRN Q6HRS PRN IV NAUSEA/VOMITING Last administered on 11/24/17at 12:51; Start 11/23/17 at 15:15 Clonidine HCl (Catapres Tts-1) 1 patch WEEKLY TD Last administered on at 15:37; Start 11/23/17 at 16:00 Enalaprilat (Vasotec Inj) 1.25 mg PRN Q6HRS PRN IVP HYPERTENSION, 2ND CHOICE; Start 11/23/17 at 16:30 Amino Acids/ Glycerin/ Electrolytes 1,000 ml @ 80 mls/hr [id number] IV Last administered on 11/27/17at 03:11; Start 11/24/17 at 13:30 Morphine Sulfate (Morphine Sulfate) 2 mg PRN Q2HR PRN IV PAIN Last administered on 11/27/17at 09:51; Start 11/24/17 at 13:30 Labetalol HCl (Normodyne Iv Push) 20 mg PRN Q2HR PRN IVP GIVE FOR SBP > 160, 1ST CHOICE; Start 11/25/17 at 08:45 Labetalol HCl (Normodyne Iv Push) 20 mg 1X ONCE IVP Last administered on at 11:09; Start 11/25/17 at 09:00; Stop 11/25/17 at 09:01; Status DC Sodium Chloride (Normal Saline Flush) 3 ml QSHIFT PRN IV AFTER MEDS AND BLOOD DRAWS; Start 11/25/17 at 14:15 Lorazepam (Ativan) 1 mg PRN Q4HRS PRN IV ANXIETY / AGITATION Last administered on 11/26/17at 21:52; Start 11/25/17 at 16:15 Ringer's Solution 1,000 ml @ 75 mls/hr [id number] IV Last administered on at 11:59; Start 11/26/17 at 12:00; Stop 11/27/17 at 13:10; Status DC Propofol 20 ml @ As Directed STK-MED ONCE IV ; Start 11/26/17 at 12:40; Stop at 12:41; Status DC Loperamide HCl (Imodium) 2 mg PRN TID PRN PO DIARRHEA Last administered on 11/27at 12:48; Start 11/27/17 at 11:45 Lactobacillus Rhamnosus (Culturelle) 1 cap BID PO ; Start 11/27/17 at 21:00 Doxycycline Hyclate (Vibra-Tab) 100 mg BID PO ; Start 11/27/17 at 21:00; Stop at 20:59 Active Scripts Active Reported FENTANYL 12mcg/hr (Fentanyl) 1 Each Patch.td72 1 Patch TP Q3DAYS Nexium Capsule (Esomeprazole Magnesium) 40 Mg Capsule.dr 40 Mg PO DAILYAC Bactrim 400-80 Mg Tablet (Sulfamethoxazole/Trimethoprim) 1 Each Tablet 1 Each PO BID 7 Days Voltaren (Diclofenac Sodium) 100 Gm Gel..gram. 2 Gm TP PRN Q6HRS PRN Senna (Sennosides) 8.8 Mg/5 Ml Syrup 8.8 Mg PO PRN DAILY PRN Zoloft (Sertraline Hcl) 50 Mg Tablet 1 Tab PO DAILY Zofran (Ondansetron Hcl) 4 Mg Tablet 1 Tab PO PRN Q6HRS PRN Hydrocodone-Apap 10-325 (Hydrocodone Bit/Acetaminophen) 1 Each Tablet 0.5 Tab PO PRN Q4HRS PRN Gabapentin 100 Mg Capsule 100 Mg PO QHS Ferrous Sulfate 325 Mg Tablet 1 Tab PO DAILY DURAGESIC 25mcg/hr (Fentanyl) 1 Each Patch.td72 1 Patch TP Q3DAYS Cetirizine Hcl 10 Mg Tablet 1 Tab PO DAILY Celebrex (Celecoxib) 100 Mg Capsule 1 Cap PO BID Calcium (Calcium Carbonate) 600 Mg Tablet 600 Mg PO BID Biotene (Saliva Substitution Combo No.9) 1,000 Ml Mouthwash 15 Ml MM TIDAFTMEAL Aspirin 81 Mg Tab.chew 1 Tab PO DAILY Aspercreme 10% Cream (Trolamine Salicylate/Aloe Vera) 35.4 Gm Cream..g. 35.4 Gm TP TID Acetaminophen 500 Mg Tablet 1 Tab PO QID PRN Xopenex (Levalbuterol Hcl) 0.63 Mg/3 Ml Vial.neb 1 Vial NEB PRN QID PRN Trazodone Hcl 50 Mg Tablet 1 Tab PO QHS Simethicone 40 Mg/0.6 Ml Drops.susp 40 Mg PO PRN Q4HRS PRN Robitussin Cough-Chest Dm Liq (Guaifenesin/Dextromethorphan) 237 Ml Liquid 20 Ml PO PRN Q4HRS PRN Plaquenil (Hydroxychloroquine Sulfate) 200 Mg Tablet 100 Mg PO BID Norvasc (Amlodipine Besylate) 10 Mg Tablet 10 Mg PO DAILY Miralax (Polyethylene Glycol 3350) 17 Gm Powd.pack 1 Packet PO BID Lasix (Furosemide) 20 Mg Tablet 10 Mg PO QMWF Multi Vitamin Daily (Multivitamin) 1 Each Tablet 1 Each PO DAILY Alendronate Sodium 70 Mg Tablet 1 Tab PO WEEKLY Losartan Potassium 100 Mg Tablet 100 Mg PO DAILY Vital Signs Vital Signs Date Time Temp Pulse Resp B/P (MAP) Pulse Ox O2 Delivery O2 Flow Rate FiO2 11/27/17 13:02 20 96 Room Air 11/27/17 11:00 97.9 93 166/60 (95) 97.9 11/26/17 13:03 2 Labs Laboratory Tests Test 11/26/17 06:55 11/27/17 04:20 Sodium Level 137 mmol/L (136-145) 139 mmol/L (136-145) Potassium Level 3.8 mmol/L (3.5-5.1) 3.8 mmol/L (3.5-5.1) Chloride Level 105 mmol/L (98-107) 105 mmol/L (98-107) Carbon Dioxide Level 22 mmol/L (21-32) 24 mmol/L (21-32) Anion Gap 10 (6-14) 10 (6-14) Blood Urea Nitrogen 13 mg/dL (7-20) 12 mg/dL (7-20) Creatinine 0.6 mg/dL (0.6-1.0) 0.6 mg/dL (0.6-1.0) Estimated GFR (Cockcroft-Gault) 94.6 94.6 Glucose Level 97 mg/dL (70-99) 96 mg/dL (70-99) Calcium Level 8.0 mg/dL (8.5-10.1) 8.5 mg/dL (8.5-10.1) White Blood Count 10.0 x10^3/uL (4.0-11.0) Red Blood Count 4.66 x10^6/uL (3.50-5.40) Hemoglobin 12.8 g/dL (12.0-15.5) Hematocrit 38.5 % (36.0-47.0) Mean Corpuscular Volume 83 fL (79-100) Mean Corpuscular Hemoglobin 27 pg (25-35) Mean Corpuscular Hemoglobin Concent 33 g/dL (31-37) Red Cell Distribution Width 16.7 % (11.5-14.5) Platelet Count 289 x10^3/uL (140-400) Neutrophils (%) (Auto) 78 % (31-73) Lymphocytes (%) (Auto) 11 % (24-48) Monocytes (%) (Auto) 10 % (0-9) Eosinophils (%) (Auto) 1 % (0-3) Basophils (%) (Auto) 1 % (0-3) Neutrophils # (Auto) 7.8 x10^3uL (1.8-7.7) Lymphocytes # (Auto) 1.1 x10^3/uL (1.0-4.8) Monocytes # (Auto) 1.0 x10^3/uL (0.0-1.1) Eosinophils # (Auto) 0.1 x10^3/uL (0.0-0.7) Basophils # (Auto) 0.1 x10^3/uL (0.0-0.2) Laboratory Tests Test 11/27/17 04:20 White Blood Count 10.0 x10^3/uL (4.0-11.0) Red Blood Count 4.66 x10^6/uL (3.50-5.40) Hemoglobin 12.8 g/dL (12.0-15.5) Hematocrit 38.5 % (36.0-47.0) Mean Corpuscular Volume 83 fL (79-100) Mean Corpuscular Hemoglobin 27 pg (25-35) Mean Corpuscular Hemoglobin Concent 33 g/dL (31-37) Red Cell Distribution Width 16.7 % (11.5-14.5) Platelet Count 289 x10^3/uL (140-400) Neutrophils (%) (Auto) 78 % (31-73) Lymphocytes (%) (Auto) 11 % (24-48) Monocytes (%) (Auto) 10 % (0-9) Eosinophils (%) (Auto) 1 % (0-3) Basophils (%) (Auto) 1 % (0-3) Neutrophils # (Auto) 7.8 x10^3uL (1.8-7.7) Lymphocytes # (Auto) 1.1 x10^3/uL (1.0-4.8) Monocytes # (Auto) 1.0 x10^3/uL (0.0-1.1) Eosinophils # (Auto) 0.1 x10^3/uL (0.0-0.7) Basophils # (Auto) 0.1 x10^3/uL (0.0-0.2) Sodium Level 139 mmol/L (136-145) Potassium Level 3.8 mmol/L (3.5-5.1) Chloride Level 105 mmol/L (98-107) Carbon Dioxide Level 24 mmol/L (21-32) Anion Gap 10 (6-14) Blood Urea Nitrogen 12 mg/dL (7-20) Creatinine 0.6 mg/dL (0.6-1.0) Estimated GFR (Cockcroft-Gault) 94.6 Glucose Level 96 mg/dL (70-99) Calcium Level 8.5 mg/dL (8.5-10.1) Allergies Allergies Coded Allergies Type Severity Reaction Last Updated Verified I S O L A T I O N *CONTACT* Allergy Unknown 11/26/17 Yes No Known Medication Allergies Allergy Unknown 11/26/17 Yes Disposition/Orders: D/C to Home w/ [facility] Patient Instructions d/c planning 40 min RICARDO MONREAL MD Nov 27, 2017 15:16
--- NOTE | 2017-11-27 15:18 | DISCH ---
DISCHARGE WITH HOME HEALTH DISCHARGE INFORMATION: Condition on Discharge: Guarded HOME HEALTH: Face to Face: I certify this patient is under my care and that I, or a nurse practitioner or physician's corporate law assistant working with me, had a face to face encounter that meets the physician face to face encounter requirements with this patient on []. Medical Complications: Dementia, Other (aspiration) Physical Therapy For: Evalulation/Treatment Occupational Therapy For: Evaluation/Treatment Speech Language Pathology For: Evaluation/Treatment Home Health Aide For: Self-care DIESEL ENGINE II PIPE FITTER For: Community Resources Pt Meets Homebound Status: Poor coordination w/ amb., Psychological condition POST DISCHARGE ORDERS: Activity Instructions for Disc: Activity as tolerated, Avoid exertion Weight Bearing Status after Di: As tolerated Bathing Instructions: Shower-keep dressing dry, No Tub Bath until see DIET AFTER DISCHARGE: Cardiac Wound/Incision Care: Reinforce dressing PRN CHECKS AFTER DISCHARGE: Checks after discharge: Check blood press - daily TREATMENT/EQUIPMENT ORDERS: Adaptive Equipment Issued: Front wheeled walker CERTIFICATION STATEMENT: Certification Statement: Certification Statement: Based on the above finding, I certify that this patient is confined to the home and needs intermittent prison care, physical therapy and/or speech therapy, or continues to need occupational therapy.~ This patient is under my care, and I have initiated the establishment of the plan of care.~ This patient will be followed by myself or a community physician who will periodically review the plan of care. Home Meds Reported Medications Fentanyl (FENTANYL 12mcg/hr) 1 Each Patch.td72, 1 PATCH TP Q3DAYS, #10 PATCH 11/22/17 Esomeprazole Magnesium (NEXIUM CAPSULE) 40 Mg Capsule.dr, 40 MG PO DAILYAC, #30 CAP 0 Refills 11/22/17 Sulfamethoxazole/Trimethoprim (BACTRIM 400-80 MG TABLET) 1 Each Tablet, 1 EACH PO BID for 7 Days, #14 TAB 11/22/17 Diclofenac Sodium (VOLTAREN) 100 Gm Gel..gram., 2 GM TP PRN Q6HRS PRN for PAIN, EACH 11/22/17 Sennosides (SENNA) 8.8 Mg/5 Ml Syrup, 8.8 MG PO PRN DAILY PRN for CONSTIPATION, MISC 11/22/17 Sertraline Hcl (ZOLOFT) 50 Mg Tablet, 1 TAB PO DAILY, #30 TAB 2 Refills 11/22/17 Ondansetron Hcl (ZOFRAN) 4 Mg Tablet, 1 TAB PO PRN Q6HRS PRN for N/, #20 TAB 11/22/17 Hydrocodone Bit/Acetaminophen (HYDROCODONE-APAP 10-325 ) 1 Each Tablet, 0.5 TAB PO PRN Q4HRS PRN for PAIN, TAB 0 Refills 11/22/17 Gabapentin (GABAPENTIN) 100 Mg Capsule, 100 MG PO QHS, CAP 11/22/17 Ferrous Sulfate (FERROUS SULFATE) 325 Mg Tablet, 1 TAB PO DAILY, #30 TAB 3 Refills 11/22/17 Fentanyl (DURAGESIC 25mcg/hr) 1 Each Patch.td72, 1 PATCH TP Q3DAYS, #10 PATCH 11/22/17 Cetirizine Hcl (CETIRIZINE HCL) 10 Mg Tablet, 1 TAB PO DAILY, #30 TAB 5 Refills 11/22/17 Celecoxib (CELEBREX) 100 Mg Capsule, 1 CAP PO BID, #60 CAP 3 Refills 11/22/17 Calcium Carbonate (CALCIUM) 600 Mg Tablet, 600 MG PO BID, TAB 11/22/17 Saliva Substitution Combo No.9 (Biotene) 1,000 Ml Mouthwash, 15 ML MM TIDAFTMEAL , MISC 11/22/17 Aspirin (ASPIRIN) 81 Mg Tab.chew, 1 TAB PO DAILY, #30 TAB 3 Refills 11/22/17 Trolamine Salicylate/Aloe Vera (ASPERCREME 10% CREAM) 35.4 Gm Cream..g., 35.4 GM TP TID, EACH 11/22/17 Acetaminophen (ACETAMINOPHEN) 500 Mg Tablet, 1 TAB PO QID PRN for PAIN, #60 TAB 1 Refill 11/22/17 Levalbuterol Hcl (XOPENEX) 0.63 Mg/3 Ml Vial.neb, 1 VIAL NEB PRN QID PRN for SHORTNESS OF BREATH, #360 ML 11 Refills 11/22/17 Trazodone Hcl (TRAZODONE HCL) 50 Mg Tablet, 1 TAB PO QHS, #30 TAB 1 Refill 11/22/17 Simethicone (SIMETHICONE) 40 Mg/0.6 Ml Drops.susp, 40 MG PO PRN Q4HRS PRN for GAS / BLOATING, DROP 11/22/17 Guaifenesin/Dextromethorphan (Robitussin Cough-Chest Dm Liq) 237 Ml Liquid, 20 ML PO PRN Q4HRS PRN for COUGH, LIQUID 11/22/17 Hydroxychloroquine Sulfate (PLAQUENIL) 200 Mg Tablet, 100 MG PO BID, TAB 11/22/17 Amlodipine Besylate (NORVASC) 10 Mg Tablet, 10 MG PO DAILY, TAB 11/22/17 Polyethylene Glycol 3350 (MIRALAX) 17 Gm Powd.pack, 1 PACKET PO BID, #30 PACKET 3 Refills 11/22/17 Furosemide (LASIX) 20 Mg Tablet, 10 MG PO QMWF, #90 TAB 1 Refill 11/22/17 Multivitamin (MULTI VITAMIN DAILY) 1 Each Tablet, 1 EACH PO DAILY 01/07/15 Alendronate Sodium (ALENDRONATE SODIUM) 70 Mg Tablet, 1 TAB PO WEEKLY, #4 TAB 3 Refills 12/11/14 Losartan Potassium (LOSARTAN POTASSIUM) 100 Mg Tablet, 100 MG PO DAILY, TAB 11/25/14 Discontinued Reported Medications Alendronate Sodium (FOSAMAX) 70 Mg Tablet, 1 TAB PO WEEKLY, #4 TAB 11 Refills 11/22/17 Omeprazole Magnesium (PRILOSEC OTC) 20 Mg Tablet.dr, 40 MG PO DAILY, TAB 11/22/17 Cranberry Extract (CRANBERRY) 500 Mg Capsule, 60896 MG PO DAILY, CAP 11/22/17 Sulfamethoxazole/Trimethoprim (BACTRIM 400-80 MG TABLET) 1 Each Tablet, 1 TAB PO BID, #20 TAB 11/22/17 Diclofenac Sodium (VOLTAREN) 100 Gm Gel..gram., 1 GM TP QID, #100 GM 2 Refills 11/22/17 Simethicone (SIMETHICONE) 40 Mg/0.6 Ml Drops.susp, 40 MG PO Q4HRS W/A, DROP 11/22/17 Sennosides/Docusate Sodium (SENNA LAXATIVE TABLET) 1 Each Tablet, 1 EACH PO DAILY PRN for CONSTIPATION, TAB 11/22/17 Multivitamin (MULTIVITAMINS) 1 Each Tablet, 1 TAB PO DAILY, #90 TAB 3 Refills 11/22/17 Guaifenesin (MUCINEX) 600 Mg Tablet.er, 1 TAB PO BID, #14 TAB 11/22/17 Losartan Potassium (LOSARTAN POTASSIUM) 100 Mg Tablet, 100 MG PO DAILY, TAB 11/22/17 Furosemide (LASIX) 20 Mg Tablet, 0.5 TAB PO QWE, #90 TAB 1 Refill 11/22/17 Cholecalciferol (Vitamin D3) (VITAMIN D3) 1,000 Unit Capsule, 1000 UNIT PO DAILY 01/07/15 Calcium Carbonate (CALCIUM) 500 Mg Tablet, 500 MG PO DAILY 01/07/15 Celecoxib (CELEBREX) 100 Mg Capsule, 1 CAP PO BID, #60 CAP 3 Refills 01/07/15 Docusate Sodium (COLACE) 100 Mg Capsule, 1 CAP PO PRN BID PRN for CONSTIPATION, #30 CAP 12/11/14 Fentanyl (FENTANYL 25mcg/hr) 1 Each Patch.td72, 1 PATCH TD Q72H, PATCH 11/25/14 Acetaminophen (ATHENOL) 325 Mg Tablet, 650 MG PO Q6HRS PRN for PAIN 11/25/14 RICARDO MONREAL MD Nov 27, 2017 15:18
[2017-11-27] MEDS ORDERED: DOXY100T PO (15:22)
[2017-11-27] MEDS ORDERED: DOXYCYCLINE HYCLATE 100 MG TABLET PO SCH (21:00)
[2017-11-27] MEDS ORDERED: LACTOBACILLUS RHAMNOSUS GG 1 CAPSULE. PO SCH (21:00)
== END 2017-11-27 16:28 | disposition home health service (06) | DRG 391 ==
LOC: ER 15:39 → 5 NORTH 17:37
PROVIDERS: ADMIT Internal Medicine; ATTEND Internal Medicine
PROC: 4B02XSZ Measurement of Cardiac Pacemaker, External Approach (ICD-10-PCS; 2017-11-21)
PROC: 0DJ08ZZ Inspection of Upper Intestinal Tract, Via Natural or Artificial Opening Endoscopic (ICD-10-PCS; principal; 2017-11-26 12:30)
DX: K22.2 Esophageal obstruction (principal); G93.41 Metabolic encephalopathy; I50.42 Chronic combined systolic (congestive) and diastolic (congestive) heart failure; E87.1 Hypo-osmolality and hyponatremia; I11.0 Hypertensive heart disease with heart failure; K22.5 Diverticulum of esophagus, acquired; M19.90 Unspecified osteoarthritis, unspecified site; F41.9 Anxiety disorder, unspecified; G89.29 Other chronic pain; M06.9 Rheumatoid arthritis, unspecified; M81.0 Age-related osteoporosis without current pathological fracture; F03.90 Unspecified dementia, unspecified severity, without behavioral disturbance, psychotic disturbance, mood disturbance, and anxiety; K21.9 Gastro-esophageal reflux disease without esophagitis; R13.14 Dysphagia, pharyngoesophageal phase; K29.70 Gastritis, unspecified, without bleeding; K59.00 Constipation, unspecified; Z90.49 Acquired absence of other specified parts of digestive tract; Z87.01 Personal history of pneumonia (recurrent); Z95.0 Presence of cardiac pacemaker; Z87.440 Personal history of urinary (tract) infections; Z91.041 Radiographic dye allergy status; Z82.49 Family history of ischemic heart disease and other diseases of the circulatory system
CPT/HCPCS: 36415; 71045; 74230; 80048; 80053; 80061; 83605; 83735; 83880; 84443; 84484; 85025; 87040; 87324; 87641; 93005; 93306; 94640; 96374; C9113; J1200; J1940; J2060; J2270; J2405; J2543; J2704; J3490; J7030; J7120; J7620; 92610; 92611; 97110; 97530; 99285-25